=== PATIENT | female | born 1980 ===

== ENCOUNTER 2024-11-19 09:03 | Inpatient (IN) | payer MEDICARE, SELFPAY ==
[2024-11-19] VITALS (32 sets, daily range): BP systolic 84–146; BP diastolic 49–88; PULSE 60–100; RESP 10–17; TEMP 36.3–38.1; O2SAT 92–100; BMI 26.0
--- NOTE | ~2024-11-19 | CT_ITS ---
CLINICAL HISTORY: AMS CT chest with contrast Comparison: None Findings: No cardiomegaly or pericardial effusion. No mediastinal adenopathy. No discrete thyroid lesion. Lungs demonstrate mild dependent changes. No effusion or pneumothorax. No suspicious lung lesion. No rib fracture identified. Reformatted imaging of the thoracic spine demonstrates no acute process. The sternum is intact. Mild hepatosplenomegaly noted. Impression: No acute process in the chest. This document has been electronically signed by: Jean-Paul Osuna MD on 11/19/2024 16:12:31
--- NOTE | ~2024-11-19 | XR_ITS ---
CLINICAL HISTORY: cellulitis, ? osteo 2 view left tibia-fibula Comparison: None Findings Normal alignment without acute fracture. Deformity of the distal tibia and fibula sequela of old injury/surgery. Round 16 mm lucency in the distal tibial diaphysis likely postsurgical in nature, versus much less likely due to a benign lucent bone lesion or intraosseous abscess. No periostitis or erosion. Anterior and medial distal leg soft tissue swelling. Pretibial soft tissue swelling also noted in the superior aspect of the leg. Postsurgical changes in the dorsal medial soft tissues of the distal leg. Medially projecting 8 mm spur arising from the distal malleolus with pseudoarthrosis with the opposing aspect of the talus. Small heterotopic ossification/spurring dorsal to the talar head and neck sequela of remote injury. Small posterior calcaneal spur. IMPRESSION: Deformity of the distal tibia and fibula sequela of old injury/surgery. Round 16 mm lucency in the distal tibial diaphysis likely postsurgical in nature, versus much less likely due to a benign lucent bone lesion or intraosseous abscess. No periostitis or erosion. Other findings as above. This document has been electronically signed by: Randa Stuart MD on 11/19/2024 11:37:13
--- NOTE | ~2024-11-19 | CT_ITS ---
CLINICAL HISTORY: cellulitis, AMS, c f osteo nec fasc Contrast-enhanced CT of the left knee through ankle Indication: Cellulitis. Necrotizing fasciitis. Osteonecrosis. Comparison: None Findings: There is skin thickening and subcutaneous edema along the lower leg, ankle and hindfoot. No abscess or soft tissue gas. Bony fusion of the distal tibia and fibula. Prior hardware defect within the anteromedial distal tibia. No surrounding bone destruction to suggest active osteonecrosis. Degenerative changes seen of the knee and ankle. Impression: There is no evidence of necrotizing fasciitis, soft tissue gas or drainable abscess. There is skin thickening and subcutaneous edema noted as detailed. This document has been electronically signed by: Jean-Paul Osuna MD on 11/19/2024 16:21:01
--- NOTE | ~2024-11-19 | CT_ITS ---
CLINICAL HISTORY: lethargic CT head without contrast Comparison: None Findings: No intra-axial mass, midline shift, hydrocephalus, or acute hemorrhage. No significant atrophy-like change or white matter disease. Probable small calcified meningioma along the high right frontal falx, coronal 81. The visualized paranasal sinuses and mastoid air cells are normal. The orbits are within normal limits. There is no acute fracture. IMPRESSION: 1. No acute intracranial findings. This document has been electronically signed by: Jean-Paul Osuna MD on 11/19/2024 16:02:07
--- NOTE | ~2024-11-19 | CT_ITS ---
CLINICAL HISTORY: AMS CT abdomen and pelvis with contrast Comparison: None Findings: The lung bases exhibit mild dependent changes. The common bile duct is dilated to 10 mm. No filling defect identified. Mild intrahepatic biliary ductal prominence. The gallbladder is mildly distended. No suspicious liver lesion. The spleen is mildly enlarged measuring up to 12.75 cm. Kidneys, ureters and bladder are normal. Adrenal glands and pancreas are within normal limits. No bowel obstruction or free air. Normal appendix. Fecal retention within the colon. Uterus and adnexa demonstrate no acute process. Abnormal hypoenhancement of the cervix, sagittal image 66, nonspecific but may be seen with edema. No acute osseous finding. Impression: There is biliary ductal prominence without radiopaque filling defect, nonspecific. No pancreatic mass lesion identified by CT. Mild splenomegaly. Fecal retention within the colon. Questionable abnormal enhancement involving the cervix. Correlation for cervical edema/pelvic discomfort. This document has been electronically signed by: Jean-Paul Osuna MD on 11/19/2024 16:09:07
--- NOTE | 2024-11-19 09:38 | ED.GENADULT ---
HPI - General Adult General Chief complaint: Extremity Injury, Lower Stated complaint: LLE PULIDO/SWELLING X2D FROM [facility] PER EMS Time Seen by Provider: 11/19/24 09:37 Source: EMS, RN notes reviewed and old records reviewed Mode of arrival: EMS Limitations: altered mental status History of Present Illness ED Provider: Yoni HPI narrative: Patient is a 44-year-old female with history of asthma, seizures, fibromyalgia, GERD, Bipolar II disorder, PTSD, OUD on methadone, multiple psychiatric hospitalizations presenting to the ED from [facility] for evaluation of infection to left lower leg. History of prior skin graft/surgery to affected leg. Lethargic upon arrival limiting reported history from patient. MD complaint: left lower leg infection Related Data Home Medications ?Medication ?Instructions ?Recorded ?Confirmed acetaminophen 325 mg tablet 650 mg PO Q4H PRN Pain 11/19/24 11/19/24 (Tylenol) aluminum-mag hydroxide-simethicone 30 ml PO QID PRN gi upset 11/19/24 11/19/24 200 mg-200 mg-20 mg/5 mL oral susp baclofen 10 mg tablet 10 mg PO TID 11/19/24 11/19/24 benzocaine 6 mg-menthol 10 mg 1 tenzin mucous membrane Q2H PRN Sore 11/19/24 11/19/24 lozenges Throat benztropine 1 mg tablet 1 mg PO BID 11/19/24 11/19/24 bupropion HCl 150 mg tablet,12 hr 150 mg PO DAILY 11/19/24 11/19/24 sustained-release calcium carbonate 500 mg PO Q4H PRN Heartburn 11/19/24 11/19/24 clonidine HCl 0.1 mg tablet 0.1 mg PO DAILY PRN Anxiety - 3rd 11/19/24 11/19/24 line diazepam 2 mg tablet 2 mg PO TID PRN Anxiety - 2nd linw 11/19/24 11/19/24 docusate sodium 100 mg capsule 100 mg PO BID PRN Constipation- 11/19/24 11/19/24 1st line guaifenesin 600 mg tablet, 1,200 mg PO Q12H PRN Cough 11/19/24 11/19/24 extended release 12 hr haloperidol 10 mg tablet 10 mg PO BID 11/19/24 11/19/24 hydroxyzine pamoate 50 mg capsule 50 mg PO Q4H PRN moderate to 11/19/24 11/19/24 severe anxiety ibuprofen 400 mg tablet 400 mg PO Q8H PRN Pain 11/19/24 11/19/24 loperamide 2 mg tablet 2 mg PO Q4H PRN Diarrhea 11/19/24 11/19/24 magnesium hydroxide 400 mg/5 mL 30 ml PO DAILY PRN Constipation- 11/19/24 11/19/24 oral suspension 3rd line melatonin 3 mg tablet 3 mg PO BEDTIME PRN Insomnia 11/19/24 11/19/24 methadone 10 mg/mL oral 125 mg PO DAILY 11/19/24 11/19/24 concentrate (Methadone Intensol) mirtazapine 15 mg tablet 15 mg PO BEDTIME 11/19/24 11/19/24 nicotine (polacrilex) 2 mg gum 2 mg buccal Q2H PRN Nicotine 11/19/24 11/19/24 Cravings nicotine 21 mg/24 hr daily 1 patch transdermal DAILY Nicotine 11/19/24 11/19/24 transdermal patch Cravings ondansetron 4 mg disintegrating 4 mg PO Q6H PRN Nausea And Vomiting 11/19/24 11/19/24 tablet pregabalin 150 mg capsule 150 mg PO BID 11/19/24 11/19/24 quetiapine 300 mg tablet 300 mg PO BEDTIME 11/19/24 11/19/24 quetiapine 50 mg tablet 50 mg PO Q6H PRN Agitation 11/19/24 11/19/24 sennosides 8.6 mg tablet (senna) 17.2 mg PO DAILY PRN Constipation- 11/19/24 11/19/24 2nd line topiramate 50 mg tablet 50 mg PO BID 11/19/24 11/19/24 Allergies Allergy/AdvReac Type Severity Reaction Status Date / Time lamotrigine [From Lamictal] Allergy Unknown Verified 11/19/24 09:25 Review of Systems Review of Systems: As per HPI Yes all other systems are reviewed and are negative Constitutional: Constitutional: Reports as per HPI PMFSH Social History Social History Household Members: None Housing: Homeless Do you presently have visiting nurse or other home services: No Unable to assess alcohol history related to: Unable to respond 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 If so, by whom?: No Do you feel safe in your current relationship?: Yes Is there a partner from a previous relationship who is making you feel unsafe now?: No Are you made to feel afraid or neglected: No [employer] Healthcare Practices: [employer] Advance Directives: No Advance Directives Information Provided: No Do you have a plan to hurt others: No Plan Recently lost weight without trying: Unsure Eating poorly because of decreased appetite: No Nutrition Risks: On aspiration precautions Patient : No : No Poor oral hygiene: No Physical Exam ED Vital Signs: Vital Signs - 24 hr 11/19/24 11:15 11/19/24 12:05 11/19/24 12:46 Temperature 100.5 F H 100.6 F H Pulse Rate 75 73 Respiratory Rate 13 13 Blood Pressure 101/57 L 100/64 88/55 L Pulse Oximetry 96 98 Oxygen Delivery Method Room Air Room Air 11/19/24 13:40 11/19/24 13:45 11/19/24 13:50 Temperature Pulse Rate 69 70 68 Respiratory Rate Blood Pressure 84/49 L 89/53 L 124/79 Pulse Oximetry Oxygen Delivery Method 11/19/24 13:55 11/19/24 14:00 11/19/24 14:25 Temperature Pulse Rate 75 64 76 Respiratory Rate Blood Pressure 135/82 127/77 132/81 Pulse Oximetry Oxygen Delivery Method 11/19/24 14:55 11/19/24 15:00 11/19/24 15:10 Temperature Pulse Rate 76 75 80 Respiratory Rate 12 Blood Pressure 88/53 L 104/59 L 146/73 H Pulse Oximetry 98 Oxygen Delivery Method Room Air 11/19/24 15:20 11/19/24 15:25 11/19/24 15:46 Temperature 98.7 F Pulse Rate 71 68 67 Respiratory Rate 11 L 10 L Blood Pressure 93/52 L 98/57 L 101/69 Pulse Oximetry 98 99 Oxygen Delivery Method Room Air Room Air 11/19/24 16:16 11/19/24 16:31 11/19/24 16:52 Temperature Pulse Rate 66 65 64 Respiratory Rate 14 12 12 Blood Pressure 103/57 L 117/72 108/70 Pulse Oximetry 98 97 98 Oxygen Delivery Method Room Air Room Air Room Air 11/19/24 17:00 11/19/24 17:16 Temperature 98.9 F Pulse Rate 65 60 Respiratory Rate 12 13 Blood Pressure 100/62 112/73 Pulse Oximetry 97 99 Oxygen Delivery Method Room Air Room Air BMI result Body Mass Index 26.0 Vital signs have been reviewed and appear to be correct. Blood pressure normal. Heart rate normal. Respiratory rate normal. Temperature febrile on rectal temp. Oxygen saturation normal. Const General: intoxicated appearing, lethargic and patient obtunded Nutritional Appearance: average body habitus Orientation/consciousness: patient obtunded and lethargic Limitations: altered mental status HENNC Head: Yes normocephalic and Yes atraumatic Ears: external ears normal General nose exam: Normal external nose present and Normal nasal mucous membranes and turbinates present Face and sinus: Yes face symmetric Mouth: oropharynx normal and moist mucous membranes Throat: Yes uvula midline Eyes Pupils: Equal, round and reactive pupils present (3mm bilat) EOM: No Nystagmus present Neck Neck: Yes normal visual inspection, Yes trachea midline and Yes supple Resp Effort & Inspection: able to speak in complete sentences, decreased respiratory effort and other (bradypnea, RR 8) Auscultation: clear to auscultation bilaterally Cardio Rate: regular rate Rhythm: regular rhythm Heart sounds: S1 normal heart sound present and S2 normal heart sound present Peripheral pulses: Peripheral pulses 2+ throughout GI Palpation (GI): Soft to palpation and nontender Auscultation: normoactive bowel sounds General: Yes no CVA tenderness Back/Spine/Pelvis Back: no CVA tenderness Skin General skin exam: elasticity normal and turgor normal Neuro Other: minimal response to painful stimuli, brief grimacing and withdrawl of extremities General: moves all extremities, No CN's II-XI intact bilaterally (unable to fully assess due to AMS/lethargy), patient obtunded and Unable to assess gait Cranial nerves: Yes Equal, round and reactive pupils present (3mm bilat) and No Nystagmus present Gait exam (Neuro): Unable to assess gait Pupils: Normal pupillary reactivity/response: bilateral Extrem Other: General: Yes full ROM, Yes no pedal edema and Yes no calf tenderness Left lower extremity: lower leg (see photo) Details: erythema Location: of the mid lower leg Location: anteriorly and of the distal lower leg Location: anteriorly, localized swelling Location: of the distal lower leg, no edema and warmth Location: of the mid lower leg and foot Details: vascular exam Details: dorsalis pedis pulse present, posterior tibial pulse present and normal capillary refill Course Course Course Narrative: 11:15 Patient meeting sepsis criteria, IV Vanco ordered. Patient remains lethargic but maintaining airway/respirations. Normal lactic, BP WNL, will hold off on 30mL/kg bolus at this time. 12:[address] Mabry who recommends starting fluid bolus, adding clindamycin and zosyn to cover nec fasc. Obtaining CT head, chest, A/P and LLE. 13:00 Patient now hypotensive, norepi ordered. I, Dr. Mainor Matos, was available for consultation while the patient was in the emergency department and I did discuss this patient's care with the nurse practitioner, Blaire Meredith. I reviewed the PARACHUTE RIGGER?s documentation and I agree with the treatment and plan. Medications Administered Generic Name Dose Route Start Last Admin Trade Name Freq PRN Reason Stop Dose Admin Baclofen 10 mg 11/20/24 09:00 11/20/24 09:57 Baclofen 10 Mg Tablet PO 10 mg TID ROMERO Administration Benztropine Mesylate 1 mg 11/20/24 09:00 11/20/24 09:57 Benztropine Mesylate 1 Mg Tablet PO 1 mg BID ROMERO Administration Bupropion HCl 150 mg 11/20/24 09:00 11/20/24 09:54 Bupropion Hcl Xl 150 Mg Tab.Er.24h PO 150 mg DAILY ROMERO Administration Diazepam 2 mg 11/20/24 07:58 11/20/24 10:03 Diazepam 2 Mg Tablet PO 2 mg TID PRN Administration Anxiety - 2nd line Haloperidol 10 mg 11/20/24 09:00 11/20/24 09:57 Haloperidol 5 Mg Tablet PO 10 mg BID ROMERO Administration Heparin Sodium (Porcine) 5,000 unit 11/19/24 17:45 11/20/24 09:54 Heparin Sodium,Porcine 5,000 Unit/Ml Vial SUBCUT 5,000 unit Q8H ROMERO Administration Piperacillin Sod/Tazobactam 50 mls @ 100 mls/hr 11/19/24 21:00 11/20/24 10:34 Sod 3.375 gm/ Sodium Chloride IV Infused Q6H ROMERO Infusion Vancomycin HCl 750 mg/ Sodium 265 mls @ 265 mls/hr 11/20/24 00:00 11/20/24 00:19 Chloride IV Infused Q12H ROMERO Infusion Methadone HCl 125 mg 11/20/24 09:00 11/20/24 09:57 Methadone Hcl 20 Mg/2 Ml Oral.Conc PO 125 mg DAILY ROMERO Administration Nicotine 21 mg 11/19/24 20:15 11/20/24 09:54 Nicotine 21 Mg Patch.Td24 TRANSDERMA 21 mg DAILY ROMERO Administration Pregabalin 150 mg 11/20/24 09:00 11/20/24 09:57 Pregabalin 150 Mg Capsule PO 150 mg BID ROMERO Administration Topiramate 50 mg 11/20/24 09:00 11/20/24 09:54 Topiramate 25 Mg Tablet PO 50 mg BID ROMERO Administration Valacyclovir HCl 1,000 mg 11/19/24 21:00 11/20/24 09:57 Valacyclovir Hcl 1,000 Mg Tablet PO 1,000 mg Q12H ROMERO Administration Discontinued Medications Generic Name Dose Route Start Last Admin Trade Name Freq PRN Reason Stop Dose Admin Acetaminophen 650 mg 11/19/24 11:42 11/19/24 11:58 Acetaminophen Supp 650 Mg Supp.Rect DE 11/19/24 11:43 650 mg ONCE ONE Administration Vancomycin HCl 1,500 mg/ 500 mls @ 333.333 mls/hr 11/19/24 11:17 11/19/24 13:38 Sodium Chloride IV 11/19/24 12:46 Infused ONCE ONE Infusion Clindamycin Phosphate 300 mg in 50 mls @ 100 mls/hr 11/19/24 12:16 11/19/24 14:02 Cleocin IV 11/19/24 12:45 Not Given ONCE ONE Piperacillin Sod/Tazobactam 50 mls @ 100 mls/hr 11/19/24 12:16 11/19/24 13:47 Sod 3.375 gm/ Sodium Chloride IV 11/19/24 12:45 Infused ONCE ONE Infusion Lactated Ringer's 1,932 mls @ 1,932 mls/hr 11/19/24 12:22 11/19/24 16:16 Lr 30 ml/kg infuse over 1 hr (1932 ml) 11/19/24 13:21 Infused IV Infusion .Q1H ONE Clindamycin Phosphate 900 mg in 50 mls @ 50 mls/hr 11/19/24 13:03 11/19/24 14:59 Cleocin IV 11/19/24 14:02 Infused ONCE ONE Infusion Norepinephrine Bitartrate 8 mg in 250 mls @ 0 mls/hr 11/19/24 13:15 11/20/24 06:21 Levophed IVCONT Infused .Q0M ROMERO Titration Protocol Per Protocol Levetiracetam 1,500 mg in 100 mls @ 400 mls/hr 11/19/24 13:05 11/19/24 14:03 Keppra IV 11/19/24 13:19 Infused ONCE ONE Infusion Acetaminophen 1,000 mg in 100 mls @ 400 mls/hr 11/19/24 20:12 11/19/24 20:48 Ofirmev IV 11/19/24 20:26 Infused ONCE ONE Infusion Ibuprofen 600 mg 11/19/24 23:06 11/19/24 23:19 Ibuprofen 600 Mg Tablet PO 11/19/24 23:07 600 mg ONCE ONE Administration Iohexol 100 ml 11/19/24 15:37 11/19/24 15:37 Iohexol 350 Mg/Ml 100 Ml Infus..Btl IV 11/19/24 15:38 100 ml ONCE ONE Administration Mirtazapine 15 mg 11/20/24 00:26 11/20/24 01:51 Mirtazapine 15 Mg Tablet PO 11/20/24 00:27 15 mg ONCE ONE Administration Pregabalin 150 mg 11/20/24 00:26 11/20/24 01:51 Pregabalin 150 Mg Capsule PO 11/20/24 00:27 150 mg ONCE ONE Administration Quetiapine Fumarate 50 mg 11/20/24 00:26 11/20/24 01:51 Quetiapine Fumarate 50 Mg Tablet PO 11/20/24 00:27 50 mg ONCE ONE Administration Topiramate 50 mg 11/20/24 00:26 11/20/24 01:51 Topiramate 25 Mg Tablet PO 11/20/24 00:27 50 mg ONCE ONE Administration Tramadol HCl 50 mg 11/20/24 04:14 11/20/24 04:32 Tramadol Hcl 50 Mg Tablet PO 11/20/24 04:15 50 mg ONCE ONE Administration Medical Decision Making Medical Decision Making [facility] Narrative: Patient is a 44-year-old female with history of asthma, seizures, fibromyalgia, GERD, Bipolar II disorder, PTSD, OUD on methadone, multiple psychiatric hospitalizations presenting to the ED from [facility] for evaluation of infection to left lower leg. On exam patient is lethargic, VS WNL, afebrile, normal neurological exam without focal deficits, physical exam findings as above. Given reported symptoms and physical exam findings, initial differential includes but is not limited to cellulitis, osteomyelitis, necrotizing fasciitis, drug or alcohol intoxication or withdrawal, electrolyte abnormality, encephalopathy, uremia, polypharmacy, seizure. Labs notable for leukocytosis with shift, elevated ESR/CRP, normal lactic. UA notable for 1+ leukocytes, 1+ blood, 6-10 WBCs. X-ray tib/fib notable for deformity of distal tibia and fibula due to old injury/surgery, no evidence of osteomyelitis. My interpretation is in agreement with the radiologist's interpretation. Urine drug screen positive for methadone and benzodiazepines, both of which are prescribed to patient. EKG shows normal sinus rhythm. Case discussed with Dr. Camejo and he accepts admission to ICU. Differential Diagnosis Differential Diagnoses: The differential diagnosis associated with the presentation includes as per [facility] Admission/Observation Consideration of admission/observation: Escalation of care including admission/observation considered Consult Healthcare Provider Management of the patient was discussed with: Rfid Developer (Dr. Camejo) Lab Data [facility] Lab Attestation statement: I reviewed the patient's lab results. as per [facility] 11/20/24 06:49 11/20/24 06:49 Labs: Lab Results 11/19/24 11/19/24 11/19/24 Range/Units 10:31 12:20 12:36 WBC 12.6 H (4.8-10.8) X10*3/uL RBC 4.27 (4.20-5.50) X10*6/uL Hgb 11.9 L (12.0-16.0) g/dl Hct 35.9 L (37.0-47.0) % MCV 84.1 (80.0-98.0) fL MCH 27.9 (27.0-33.0) pg MCHC 33.1 (31.0-35.0) g/dl RDW 13.1 (11.0-16.0) % Plt Count 256 (160-400) X10*3/uL MPV 9.8 (9.4-12.3) fL Immature Gran % (Auto) 0.3 (0.0-0.4) % Neut % (Auto) 88.3 H (45-73) % Lymph % (Auto) 4.7 L (20-40) % [place] % (Auto) 5.2 (2-11) % Eos % (Auto) 1.2 (0-4) % Baso % (Auto) 0.3 (0-2) % Lymph # (Auto) 0.6 L (1.2-4.9) X10*3/uL [place] # (Auto) 0.7 (0.1-1.2) X10*3/uL Eos # (Auto) 0.2 (0.0-0.4) X10*3/uL Baso # (Auto) 0.0 (0.0-0.2) X10*3/uL Abs Immat Gran (auto) 0.04 H (0.00-0.03) X10*3/uL Absolute Neuts (auto) 11.2 H (2.0-8.3) x10*3/uL Absolute Nucleated RBC 0.000 (0.0-0.012) X10*3/uL Nucleated RBC % (auto) 0.0 (0.0-0.2) /100WBC ESR 56 H (0-20) MM/HR VBG pH (7.32-7.43) VBG pCO2 mmHg VBG pO2 mmHg VBG HCO3 (22-26) mmol/L VBG O2 Saturation % VBG Base Excess mmol/L Sodium 137 (135-145) mmol/L Potassium 4.2 (3.3-5.1) mmol/L Chloride 107 (96-108) mmol/L Carbon Dioxide 24 (22-29) mmol/L Anion Gap 10 L (12-20) BUN 14 (9-16) mg/dL Creatinine 0.81 (0.5-1.4) mg/dL Estim Creat Clear Calc 78.0 Estimated GFR > 60 Random Glucose 107 (60-115) mg/dL Lactic Acid 1.0 (0.5-2.0) mmol/L Calcium 9.1 (8.4-10.2) mg/dL Magnesium 2.2 (1.6-2.6) mg/dL Total Bilirubin 0.3 (0.0-1.0) mg/dL AST 17 (5-31) U/L ALT 11 (0-31) U/L Alkaline Phosphatase 84 (39-117) U/L Ammonia 55 (13-55) umol/L Troponin I High Sens (<3.5-17.0) ng/L C-Reactive Protein 12.69 H (< or = 0.50) mg/dL Total Protein 7.5 (6.5-8.0) g/dL Albumin 3.4 L (3.5-5.0) g/dL Beta HCG, Quant < 2 mIU/mL Urine Color Yellow Urine Appearance Clear Urine pH 6.0 (5.0-9.0) Ur Specific [place] 1.015 (1.005-1.025) Urine Protein Negative (Neg-Trace) mg/dL Urine Glucose (UA) Negative (Negative) mg/dL Urine Ketones Negative (Negative) mg/dL Urine Blood Small (1+) H (Negative) Urine Nitrite Negative (Negative) Ur Leukocyte Esterase Small (1+) H (Negative) Urine RBC 3-5 H (0-2) /HPF Urine WBC 6-10 H (0-5) /HPF Ur Squamous Epith Cells 0-2 (0-2) /HPF Urine Bacteria Trace (None Seen) Hyaline Casts 0-2 (0-2) /LPF Urine Opiates Screen Not Detected (Not Detect) Ur Buprenorphine Scrn Not Detected (Not Detect) ng/mL Ur Oxycodone Screen Not Detected (Not Detect) ng/mL Urine Methadone Screen Positive H (Not Detect) ng/mL Urine Fentanyl Screen Not Detected (Not Detect) Ur Barbiturates Screen Not Detected (Not Detect) Ur Phencyclidine Scrn Not Detected (Not Detect) Ur Amphetamines Screen Not Detected (Not Detect) U Benzodiazepines Scrn POSITIVE H (Not Detect) Urine Cocaine Screen Not Detected (Not Detect) U Marijuana (THC) Screen Not Detected (Not Detect) 11/19/24 11/19/24 Range/Units 15:24 17:12 WBC (4.8-10.8) X10*3/uL RBC (4.20-5.50) X10*6/uL Hgb (12.0-16.0) g/dl Hct (37.0-47.0) % MCV (80.0-98.0) fL MCH (27.0-33.0) pg MCHC (31.0-35.0) g/dl RDW (11.0-16.0) % Plt Count (160-400) X10*3/uL MPV (9.4-12.3) fL Immature Gran % (Auto) (0.0-0.4) % Neut % (Auto) (45-73) % Lymph % (Auto) (20-40) % [place] % (Auto) (2-11) % Eos % (Auto) (0-4) % Baso % (Auto) (0-2) % Lymph # (Auto) (1.2-4.9) X10*3/uL [place] # (Auto) (0.1-1.2) X10*3/uL Eos # (Auto) (0.0-0.4) X10*3/uL Baso # (Auto) (0.0-0.2) X10*3/uL Abs Immat Gran (auto) (0.00-0.03) X10*3/uL Absolute Neuts (auto) (2.0-8.3) x10*3/uL Absolute Nucleated RBC (0.0-0.012) X10*3/uL Nucleated RBC % (auto) (0.0-0.2) /100WBC ESR (0-20) MM/HR VBG pH 7.40 (7.32-7.43) VBG pCO2 37 mmHg VBG pO2 81 mmHg VBG HCO3 23 (22-26) mmol/L VBG O2 Saturation 96.0 % VBG Base Excess -1.0 mmol/L Sodium (135-145) mmol/L Potassium (3.3-5.1) mmol/L Chloride (96-108) mmol/L Carbon Dioxide (22-29) mmol/L Anion Gap (12-20) BUN (9-16) mg/dL Creatinine (0.5-1.4) mg/dL Estim Creat Clear Calc Estimated GFR Random Glucose (60-115) mg/dL Lactic Acid (0.5-2.0) mmol/L Calcium (8.4-10.2) mg/dL Magnesium (1.6-2.6) mg/dL Total Bilirubin (0.0-1.0) mg/dL AST (5-31) U/L ALT (0-31) U/L Alkaline Phosphatase (39-117) U/L Ammonia (13-55) umol/L Troponin I High Sens < 2.7 (<3.5-17.0) ng/L C-Reactive Protein (< or = 0.50) mg/dL Total Protein (6.5-8.0) g/dL Albumin (3.5-5.0) g/dL Beta HCG, Quant mIU/mL Urine Color Urine Appearance Urine pH (5.0-9.0) Ur Specific [place] (1.005-1.025) Urine Protein (Neg-Trace) mg/dL Urine Glucose (UA) (Negative) mg/dL Urine Ketones (Negative) mg/dL Urine Blood (Negative) Urine Nitrite (Negative) Ur Leukocyte Esterase (Negative) Urine RBC (0-2) /HPF Urine WBC (0-5) /HPF Ur Squamous Epith Cells (0-2) /HPF Urine Bacteria (None Seen) Hyaline Casts (0-2) /LPF Urine Opiates Screen (Not Detect) Ur Buprenorphine Scrn (Not Detect) ng/mL Ur Oxycodone Screen (Not Detect) ng/mL Urine Methadone Screen (Not Detect) ng/mL Urine Fentanyl Screen (Not Detect) Ur Barbiturates Screen (Not Detect) Ur Phencyclidine Scrn (Not Detect) Ur Amphetamines Screen (Not Detect) U Benzodiazepines Scrn (Not Detect) Urine Cocaine Screen (Not Detect) U Marijuana (THC) Screen (Not Detect) Independent Interpretation I performed an independent interpretation of an: EKG (Normal sinus rhythm, rate 71 beats per minute, normal DE interval, prolonged QTC) and Plain X-Ray Interpretation: X-ray tibia notable for deformity likely due to old injury and prior surgery, no osteomyelitis. Radiology Impression Discussion of test interpretation with radiology: I have reviewed the radiologist's reading. Radiologist Impression: IMPRESSION: Deformity of the distal tibia and fibula sequela of old injury/surgery. Round 16 mm lucency in the distal tibial diaphysis likely postsurgical in nature, versus much less likely due to a benign lucent bone lesion or intraosseous abscess. No periostitis or erosion. Other findings as above. External Record Review External record reviewed: Inpatient record, Office record and Outpatient record Critical Care Time Critical Care Time Critical Care Time: Yes Total Critical Care Time: 88 Attestation: I have personally provided critical care time exclusive of time spent on separately billable procedures. Time includes review of lab data, radiology results, discussion with consultants, and monitoring for potential decompensation. Intervention performed as documented. Discharge Plan Discharge Clinical Impression: Cellulitis, Altered mental status, Sepsis Patient Disposition: Admitted As Inpatient Discharge Date/Time: 11/19/24 19:12
--- OUTSIDE RECORDS SUMMARY | 2024-11-19 10:03 | XMS_ITS | Encounter Summary ---
Author Organization [facility]ance Address [address] [place] [address] Care Team Providers Care Manager Of Organizational Development Name Role Phone Greg Murdock MD Primary Care Provider [phone] Greg Murdock MD Unavailable [phone] Ramón Real SPECIAL POLICE Unavailable [phone] Tammy Soto BALL MILL OPERATOR Unavailable [phone] Linda Leblanc BALL MILL OPERATOR Unavailable [phone] Ginny Alberto BALL MILL OPERATOR Unavailable [phone] Belkis Londono (Inactive) RN Unavailable Ginny Alberto BALL MILL OPERATOR Unavailable [phone] Ginny Alberto BALL MILL OPERATOR Unavailable [phone] Ginny Alberto BALL MILL OPERATOR Unavailable [phone] Ramón Real SPECIAL POLICE Unavailable [phone] Ashley Howard MD Primary Care Provider [phone] Vinny Parker PA-C Unavailable [phone] Ashley Howard MD Unavailable [phone] Reason for Visit * Reason Onset Date Comments Refill Request 06/06/2013 amphetamine-dext roamphetamine (ADDERALL, 20MG,) 20 MG tablet Encounter Details Date Type Department Care Team (Late st Contact Info) Description 06/06/2013 [facility] Primary Care - [facility] - Psychiatry [address] [place] [address] Keyon Roberts MD [address] [place] [address] Refill Request (amphetamine-dextroamp hetamine (ADDERALL, 20MG,) 20 MG tablet) Social History Tobacco Use Types Packs/Day Years Used Date Smoking Tobacco: Every Day Cigarettes Smokeless Tobacco: Current Alcohol Use Standard Drinks/Week Comments No 0 (1 standard drink = 0.6 oz pur e alcohol) Comments No Sex and Gender Information Value Date Recorded Sex Assigned at Not on file Legal Sex Female 11:33 PM EDT Gender Identity Female 08/01/2023 7:58 AM EST Sexual Orientation Straight 08/01/2023 7: 58 AM EST documented as of this encounter Plan of Treatment Not on file documented as of this encounter Visit Diagnoses Not on filedocumented in this encounter Additional Health Concerns Infection Onset Date Last Indicated Resolved Time Rule out COVID-19 04/03/2020 04/04/2020 04/04/2020 3:22 AM EDT Rule out COVID-19 04/09/2023 04/09/2023 04/09/2023 4:00 PM EDT Rule out RSV 04/09/2023 04/09/2023 04/10/2023 6:21 AM EDT Rule out Influenzae 04/09/2023 04/09/2023 04/10/20 6:21 AM EDT Rule out COVID-19 04/09/2023 04/09/2023 04/10/2023 6:22 AM EDT Human Rhinovirus Enterovirus Comment:Pt chart reviewed; spoke to provider, no S/S at this time; afebrile. Precautions can be discontinued. 04/09/2023 04/09/2023 04/16/2023 10:26 AM EDT Rule out COVID-19 05/14/2023 05/14/2023 05/14/2023 2:17 PM EST COVID-19 Comment:According the patient history, current condition and the algorithm this patient is not considered infectious at this time. 05/14/2023 05/14/202305/06 10:10 AM EST Rule out COVID-19 05/14/2023 05/14/2023 05/14/2023 3:40 PM EST Rule out COVID-19 06/13/2023 06/13/2023 06/13/2023 8:59 PM EST documented as of this encounter Care Teams Manager Of Organizational Development Relationship Specialty Start Date End Date Greg Murdock MD [address] [place] [id number] PCP - General 01/19/14 04/14/23 Greg Murdock MD [address] [place] [id number] PCP - Insurance PCP 02/02/15 05/04/23 Ashley Howard MD [address] [address] PCP - General Internal Medicine 04/15/23 Vinny Parker PA-C [address] [place] [id number] PCP - Attributed PCP - PCF [facility] 10/08/21 06/04/23 Ashley Howard MD [address] [address] PCP - Insurance PCP 09/03/24 Ramón Real SPECIAL POLICE [address] [place] [id number] Community Health Worker Case Management 03/28/[address] [facility] [address] [place] [address] Complex Care Management Primary Care Based - BALL MILL OPERATOR/COMPUTER AIDED DESIGN OPERATOR Care Management 03/29/19 10/31/19 Linda Leblanc, [facility] [address] [facility] [place] [address] Intensive Clinical Advisor Behavioral Health 08/05/19 11/10/19 Ginny Alberto, [facility] [address] [facility] [place] [address] Complex Care Management Primary Care Based - [facility] Family Medicine 11/01/19 01/25/20 Belkis Londono (Inactive), RN [address] [place] [address] Complex Care Management Primary Care Based-RN 01/26/20 01/31/20 Ginny Alberto, [address] [address] Complex Care Management Primary Care Based - [facility] Family Medicine 02/01/20 02/26/20 [address] [address] Complex Care Management Primary Care Based - [facility] Family Medicine 12/16/22 01/06/[address] [address] Complex Care Management Primary Care Based - [facility] Family Medicine 02/18/23 03/05/23 Ramón Real, SPECIAL POLICE [address] [facility] [place] [address] Community Health Worker Case Management 04/13/23 documented as of this encounter
--- OUTSIDE RECORDS SUMMARY | 2024-11-19 10:03 | XMS_ITS | Encounter Summary ---
Author Organization [employer] [facility] Address [address] [place] [address] Care Team Providers Care Manufacturing Automation Engineer Name Role Phone Ashley Howard MD Primary Care Provider [phone] Ashley Howard MD Unavailable [phone] Reason for Visit * Reason Onset Date Comments Schedule An Appointment 11/03/2024 Encounter Details Date Type Department Care Team (Late st Contact Info) Description 11/03/2024 Telephone [facility] [address] [place] [address] Ashley Howard MD [facility] [address] [place] [address] Schedule An Appointment Social History Tobacco Use Types Packs/Day Years Used Date Smoking Tobacco: Every Day Cigarettes 1 25 Passive Smoke Exposure: Current Comments:smoking 2 pks a day because holidays 06/22/13 Alcohol Use Standard Drinks/Week Comments No 0 (1 standard drink = 0.6 oz pur e alcohol) Comments No Sex and Gender Information Value Date Recorded Sex Assigned at Not on file Legal Sex Female 11:33 PM EDT Gender Identity Female 08/01/2023 7:58 AM EST Sexual Orientation Straight 08/01/2023 7: 58 AM EST documented as of this encounter Functional Status * (RETIRED) Are you deaf or do you have difficulty hearing? Answer Date of Assessment Author No 05/15/2023 5:00 PM Ernestine Stone RN * (RETIRED) Are you blind or do you have difficulty seeing? Answer Date of Assessment Author No 05/15/2023 5:00 PM Ernestine Stone RN * (RETIRED) Do you have difficulty walking or climbing stairs? Answer Date of Assessment Author No 05/15/2023 5:00 PM Ernestine Stone RN * (RETIRED) Do you have difficulty dressing or bathing? Answer Date of Assessment Author No 05/15/2023 5:00 PM Ernestine Stone RN * (RETIRED) Because of a physical, mental, or emotional condition, do you have difficulty doing errands such as visiting a doctor's office or shopping? Answer Date of Assessment Author No 05/15/2023 5:00 PM Ernestine Stone RN documented as of this encounter Mental Status * (RETIRED) Because of a physical, mental, or emotional condition, do you have serious difficulty concentrating, remembering, or making decisions? Answer Entry Date Author No 05/15/2023 5:00 PM Ernestine Stone RN documented in this encounter Miscellaneous Notes * Telephone Encounter - Doreen Castaneda - 11/03/2024 12:19 PM EDT Edwina Caballero [id number], 44 year old, female Calls today: Clinical Questions (NON-SICK CLINICAL QUESTIONS ONLY) Name of person calling [place] perinatal social worker in [facility] Specific nature of request schedule hospital follow up Return phone number no return call needed Patient does not need an market developer. Patient's PCP: Ashley Howard MD Primary Long Term Site: [facility] In patient perinatal social worker from [facility] calling to scheduled hospital follow up for patient. documented in this encounter Plan of Treatment Not on file documented as of this encounter Goals Goal Patient Goal Type Associated Problems Recent Progress Patient-Stated? Author Transporta tion Care Plan [facility] PATIENT RESOURCE COORDINATION No Kirstie Leggett Inactive Transporta tion Care Plan [place] PATIENT RESOURCE COORDINATION No Kirstie Leggett Inactive Transporta tion Care Plan [place] PATIENT RESOURCE COORDINATION No Kirstie Leggett Inactive documented as of this encounter Visit Diagnoses Not on filedocumented in this encounter Additional Health Concerns Active Problems Noted Date Diagnosed Date [facility]ITA PATIENT RESOURCE COORDINATION 01/28/2021 CHIQUITA PATIENT RESOURCE COORDINATION 08/28/2021 [place] PATIENT RESOURCE COORDINATION 08/29/2021 [place]IQUITA PATIENT RESOURCE COORDINATION 08/29/2021 documented as of this encounter Care Teams Manufacturing Automation Engineer Relationship Specialty Start Date End Date Ashley Howard MD [address] [address] PCP - General Internal Medicine 04/15/23 Ashley Howard MD [address] [address] PCP - Insurance PCP 09/03/24 documented as of this encounter
--- OUTSIDE RECORDS SUMMARY | 2024-11-19 10:03 | XMS_ITS | Clinical Summary ---
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 Tubes/lines: Support wires overlie the chest and upper abdomen. Lungs: The lungs are clear. Pleura: There is no pleural effusion or pneumothorax. Heart: Borderline sized cardiac silhouette accentuated by portabletechnique. Mediastinum/papito: Unremarkable for portable technique. Bones and Soft Tissues: Unremarkable IMPRESSION: No acute cardiopulmonary findings on portable chest radiograph. Reviewed and Electronically Signed By: Keo Levy MD Signed Date and Time: 11/05/2024 3:03 PM Jaime Tao PA-C RAD XR ORDERABLES Final Re sult * CT Head WO Contrast (11/05/2024 2:01 PM EDT) Only the most recent of2 resultswithin the time period is included. Anatomical Region Laterality Modality Head and Neck Computed Tomogra phy 11/05/2024 2:03 PM EDT Impressions 11/05/2024 2:[address] evidence of acute intracranial abnormality. Reviewed and Electronically Signed By: Keo Levy MD Signed Date and Time: 11/05/2024 2:16 PM Narrative 11/05/2024 2:16 PM EDT CLINICAL INDICATION: Altered mental status COMPARISON: Head CT 09/26/2024 TECHNIQUE: Contiguous scans from skull base to vertex without contrast and reconstructions in coronal and sagittal planes. Radiation dose reduction techniques were employed. CTDIvol: 60.1 mGy. DLP: 1154 mGy-cm. FINDINGS: Brain: Villagomez-white differentiation is maintained. There is no hemorrhage or abnormal mass effect. Ventricles and CSF spaces: Normal in size and morphology. An unchanged 1.5 cm right parafalcine calcified nodule may represent an incidental dural calcification or a benign calcified meningioma. There is no mass effect. Sinuses: There is minimal paranasal sinus mucosal thickening but no visualized air-fluid level. Mastoid air cells: Clear. Orbits: Unremarkable. Bones: The calvarial vault and skull base are intact. Extracranial: Unremarkable Procedure Note Keo Levy MD - 11/05/2024 CLINICAL INDICATION: Altered mental status COMPARISON: Head CT 09/26/2024 TECHNIQUE: Contiguous scans from skull base to vertex without contrast andreconstructions in coronal and sagittal planes. Radiation dose reductiontechniques were employed. CTDIvol: 60.1 mGy. DLP: 1154 mGy-cm. FINDINGS: Brain: Villagomez-white differentiation is maintained. There is no hemorrhage orabnormal mass effect. Ventricles and CSF spaces: Normal in size and morphology. An unchanged 1.5 cm right parafalcine calcified nodule may represent anincidental dural calcification or a benign calcified meningioma. There isno mass effect. Sinuses: There is minimal paranasal sinus mucosal thickening but novisualized air-fluid level. Mastoid air cells: Clear. Orbits: Unremarkable. Bones: The calvarial vault and skull base are intact. Extracranial: Unremarkable IMPRESSION: No CT evidence of acute intracranial abnormality. Reviewed and Electronically Signed By: Keo Levy MD Signed Date and Time: 11/05/2024 2:16 PM Result [facility] Jaime Tao PA-C RAD CT ORDERABLES Final Re sult * EKG : Initial (11/05/2024 1:43 PM EDT) Only the most recent of2 resultswithin the time period is included. EKG REPORT Test Reason : ?? Vent. Rate : ??81 BPM ? Atrial Rate : ??81 BPM ? P-R Int : 150 ms ?QRS Dur : ??82 ms ?QT Int : 424 ms ? P-R-T Axes : ??31 ?? 4 ??22 degrees ?QTcB Int : 492 ms ? Normal sinus rhythm ?? Cannot rule out Anterior infarct , age undetermined ?? Abnormal ECG ?? When compared with ECG of 26-Sep-2024 13:34, ?? No significant change was found ? Referred By: JAIME TAO ?Confirmed By: FELI CRAWFORD [facility] RADIOLOG[facility] 11/05/2024 1:43 PM EDT 11/06/2024 10:16 PM EDT Result [facility] Jaime Tao PA-C RAD EKG OR DEVICE ORDERABL ES Final Result [facility] * Serum Drug Screen (11/05/2024 1:35 PM EDT) SALICYLATE < 0.5 3.0 - 20.0 mg/dL [facility] ACETAMINOPHEN < 5 10 - 30 ug/mL [facility] ETHANOL < 10 0 - 10 mg/dL [facility] 11/05/2024 1:35 PM EDT 11/05/2024 1:40 PM EDT Result [facility] Jaime Tao PA-C LABORATORY Final Resu lt [facility] [address] [place] [address], [place] * CBC, Platelet & Differential (11/05/2024 1:35 PM EDT) WHITE BLOOD CELL COUNT 6.7 4.0 - 11.0 TH/uL [facility] RED BLOOD CELL COUNT 4.47 3.90 - 5.20 M/uL [facility] HEMOGLOBIN 12.9 11.2 - 15.7 g/dL [facility] HEMATOCRIT 38.4 34.1 - 44.9 % [facility] MEAN CORPUSCULAR VOL 85.9 80.0 - 100.0 fl [facility] MEAN CORPUSCULAR HGB 28.9 26.0 - 34.0 pg [facility] MEAN BOSSMAN HGB CONC 33.6 31.0 - 37.0 g/dL [facility] RBC DISTRIBUTION WIDTH STD DEV 42.9 35.1 - 46.3 fL [facility] PLATELET COUNT 255 150 - 400 TH/uL [facility] MEAN PLATELET VOLUME 10.1 8.7 - 12.5 fL [facility] NEUTROPHIL % 61.3 40.0 - 75.0 % [facility] IMMATURE GRANULOCYTE % 0.3 0.0 - 1.0 % [facility] Comment: The immature granulocyte fraction includes metamyelocytes, myelocytes and promyelocytes. ??No blasts are included in the immature granulocyte fraction. An immature granulocyte fraction over 5% will result in additional laboratory review. A mild increase in immature granulocytes (up to 1%) in the peripheral blood may indicate an early-stage response to infection, inflammation, or other stimuli of the bone marrow. ??In addition, immature granulocytes can be seen in association with trauma, certain medications (including steroids and G-CSF), and may also be elevated in patients (mainly 3rd trimester) or neonates. ??The immature granulocyte count may also indicate a myeloproliferative neoplasm, a myelodysplastic syndrome, or other neoplastic processes (such as a metastasis from an extramedullary malignancy). If there is a clinical concern for a hematopoietic neoplastic process, additional laboratory investigation can be requested including a manual white blood count differential and/or a pathologist peripheral smear review. LYMPHOCYTE % 26.3 15.0 - 54.0 % [facility] MONOCYTE % 10.5 4.0 - 13.0 % [facility] EOSINOPHIL % 0.7 0.0 - 7.0 % [facility] BASOPHIL % 0.9 0.0 - 1.2 % [facility] NRBC % 0.0 0.0 - 0.0 % [facility] ABSOLUTE NEUTROPHIL COUNT 4.1 1.6 - 8.3 TH/uL [facility] ABSOLUTE IMM GRAN COUNT 0.02 0.00 - 0.10 TH/uL [facility] ABSOLUTE LYMPH COUNT 1.8 0.6 - 5.9 TH/uL [facility] ABSOLUTE MONO COUNT 0.7 0.2 - 1.4 TH/uL [facility] ABSOLUTE EOSINOPHIL COUNT 0.1 0.0 - 0.8 TH/uL [facility] ABSOLUTE BASO COUNT 0.1 0.0 - 0.1 TH/uL [facility] ABSOLUTE NRBC COUNT 0.0 0.0 - 0.0 TH/uL [facility] 11/05/2024 1:35 PM EDT 11/05/2024 1:40 PM EDT Jaime Tao PA-C LABORATORY Final Resu lt [facility] [address] [place] [address], [place] * Hold Blue Top Tube (11/05/2024 1:35 PM EDT) HOLD BLUE TOP TUBE RECEIVED IN HEMATOL [facility] 11/05/2024 1:35 PM EDT 11/05/2024 1:40 PM EDT Jaime Tao PA-C LABORATORY Final Resu lt [facility] [address] [place] [address], * Hold Green Top Tube (11/05/2024 1:35 PM EDT) HOLD GREEN TOP TUBE RECEIVED IN CHEM [facility] 11/05/2024 1:35 PM EDT 11/05/2024 1:40 PM EDT Jaime PALACIOS-Nanci LABORATORY Final Resu lt Performing Organization Address City/[facility]/ZIP Co de Phone Number [facility] [address] [place] [address], [place] * HCG Qualitative Serum (11/05/2024 1:35 PM EDT) HCG QUALITATIVE SERUM NEGATIVE NEGATIVE [facility] 11/05/2024 1:35 PM EDT 11/05/2024 1:40 PM EDT Jaime PALACIOS-Nanci LABORATORY Final Resu lt Performing Organization Address City/[facility]/ZIP Co de Phone Number [facility] [address] [place] [address], [place] * Comprehensive Metabolic Panel (11/05/2024 1:35 PM EDT) SODIUM 138 136 - 145 mmol/L [facility] POTASSIUM 4.0 3.5 - 5.1 mmol/L [facility] CHLORIDE 103 98 - 107 mmol/L [facility] CARBON DIOXIDE 23 21 - 32 mmol/L [facility] ANION GAP 12 10 - 22 mmol/L [facility] CALCIUM 9.0 8.5 - 10.5 mg/dL [facility] Glucose Random 90 74 - 160 mg/dL [facility] BUN (UREA NITROGEN) 13 7 - 18 mg/dL [facility] TOTAL PROTEIN 6.8 6.4 - 8.2 g/dL [facility] ALBUMIN 3.9 3.4 - 5.2 g/dL [facility] BILIRUBIN TOTAL 0.6 0.2 - 1.0 mg/dL [facility] ALKALINE PHOSPHATASE 88 45 - 117 U/L [facility] ASPARTATE AMINOTRANSFERASE 16 8 - 34 U/L [facility] CREATININE 1.0 0.4 - 1.2 mg/dL [facility] ESTIMATED GLOMERULAR FILT RATE > 60 >60 ML/MIN [facility] Comment: On March 28, 2021 the NKF-ASN Task Force recommended the adoption of the new eGFR 2020 CKD EPI creatinine equation that estimates kidney function without a race variable. NKF and ASN recommend diagnosing kidney disease using a blood test for creatinine to estimate GFR and a urine test for albumin to calculate albumin to creatinine ratio (uACR). For more information please see https://www.kidney.org/news/ayi-pdl-hje-kckqduw-zln-fws-to-d nxvojts-agpzej-utpqjdrc. ALANINE AMINOTRANSFERASE 13 12 - 45 U/L [facility] 11/05/2024 1:35 PM EDT 11/05/2024 1:40 PM EDT Jaime Tao PA-C LABORATORY Final Resu lt Performing Organization Address City/[facility]/ZIP Co de Phone Number [facility] [address] [place] [address], [place] * Fingerstick Blood Sugar (Point of Care) (11/05/2024 1:17 PM EDT) FINGERSTICK GLUCOSE 133 74 - 160 mg/dl [facility] Comment: If peripheral circulation is impaired, collection of capillary blood from the approved sample sites is not advised as the results might not be a true reflection of the physiological blood glucose level. This may apply in the following circumstances: severe dehydration as a result of diabetic ketoacidosis or due to hyperglycemic hyperosmolar non-ketotic syndrome, hypotension, shock, decompensated heart failure NYHA Class IV, or peripheral arterial occlusive disease. 11/05/2024 1:17 PM EDT 11/05/2024 1:22 PM EDT us Ed Physician LABORATORY Final Result Performing Organization Address City/[facility]/ZIP Co de Phone Number [facility] [address] [place] [address], [place] * XR Chest 2 views (09/26/2024 1:37 PM EDT) Anatomical Region Laterality Modality Chest Digital Radiogra phy 09/26/2024 1:42 PM EDT Impressions 09/26/2024 1:43 PM EDT New right pleural fluid. In the setting of trauma this could represent hemothorax Reviewed and Electronically Signed By: Michel Kunz MD Signed Date and Time: 09/26/2024 1:43 PM Narrative 09/26/2024 1:43 PM EDT Technique: Chest, 2 views INDICATION: trip and fall, chest pain COMPARISON: May 29, 2024 FINDINGS: Lungs: The lungs are clear. Pleura: New right pleural effusion Heart: The cardiac silhouette is unremarkable. Mediastinum/papito: Unremarkable Bones and Soft Tissues: Unremarkable Procedure Note Michel Kunz MD - 09/26/2024 Technique: Chest, 2 views INDICATION: trip and fall, chest pain COMPARISON: May 29, 2024 FINDINGS: Lungs: The lungs are clear. Pleura: New right pleural effusion Heart: The cardiac silhouette is unremarkable. Mediastinum/papito: Unremarkable Bones and Soft Tissues: Unremarkable IMPRESSION: New right pleural fluid. In the setting of trauma this couldrepresent hemothorax Reviewed and Electronically Signed By: Michel Kunz MD Signed Date and Time: 09/26/2024 1:43 PM us Terrence Parsons MD RAD XR ORDERABLES Final Resu lt * XR Foot Left minimum 3 views (09/26/2024 1:36 PM EDT) Anatomical Region Laterality Modality Lower Extremities Digital Radiog komal 09/26/2024 1:44 PM EDT Impressions 09/26/2024 1:45 PM EDT No acute traumatic finding Reviewed and Electronically Signed By: Michel Kunz MD Signed Date and Time: 09/26/2024 1:45 PM Narrative 09/26/2024 1:45 PM EDT Technique: Left foot, 3 views Indication: trip fall, pain at left foot near 5th metatarsal, ?fracture Comparison: Partial comparison with ankle radiographs of April 14, 2019 Findings: Bones and Joints: There is no fracture or suspicious bone lesion. There is no dislocation. The joint spaces are maintained. There is a plantar calcaneal spur. There has been interval removal of hardware from the distal tibia. Soft Tissues: Unremarkable. ?? Procedure Note Michel Kunz MD - 09/26/2024 Technique: Left foot, 3 views Indication: trip fall, pain at left foot near 5th metatarsal, ?fracture Comparison: Partial comparison with ankle radiographs of April Findings: Bones and Joints: There is no fracture or suspicious bone lesion. There isno dislocation. The joint spaces are maintained. There is a plantarcalcaneal spur. There has been interval removal of hardware from thedistal tibia. Soft Tissues: Unremarkable. IMPRESSION: No acute traumatic finding Reviewed and Electronically Signed By: Michel Kunz MD Signed Date and Time: 09/26/2024 1:45 PM us Terrence Parsons MD RAD XR ORDERABLES Final Resu lt * XR Knee Left 3 views (09/26/2024 1:36 PM EDT) Anatomical Region Laterality Modality Lower Extremities Digital Radiog komal 09/26/2024 1:41 PM EDT Impressions 09/26/2024 1:42 PM EDT No acute traumatic finding Reviewed and Electronically Signed By: Michel Kunz MD Signed Date and Time: 09/26/2024 1:42 PM Narrative 09/26/2024 1:42 PM EDT Exam: Left knee, 3 views Indication: trip and fall, bilateral knee pain after trauma. Comparison: November 01, 2013 Findings: Bones and Joints: There is no fracture or suspicious bone lesion. There is no dislocation. The joint spaces are maintained. No joint effusion is seen. Soft Tissues: Unremarkable. ?? Procedure Note Michel Kunz MD - 09/26/2024 Exam: Left knee, 3 views Indication: trip and fall, bilateral knee pain after trauma. Comparison: November 01, 2013 Findings: Bones and Joints: There is no fracture or suspicious bone lesion. There isno dislocation. The joint spaces are maintained. No joint effusion isseen. Soft Tissues: Unremarkable. IMPRESSION: No acute traumatic finding Reviewed and Electronically Signed By: Michel Kunz MD Signed Date and Time: 09/26/2024 1:42 PM us Terrence Parsons MD RAD XR ORDERABLES Final Resu lt * XR Knee Right 3 views (09/26/2024 1:35 PM EDT) Anatomical Region Laterality Modality Lower Extremities Digital Radiog komal 09/26/2024 1:50 PM EDT Impressions 09/26/2024 1:51 PM EDT No acute traumatic finding Reviewed and Electronically Signed By: Michel Kunz MD Signed Date and Time: 09/26/2024 1:51 PM Narrative 09/26/2024 1:51 PM EDT Exam: Right knee, 3 views Indication: trip and fall, bilateral knee pain after trauma. Comparison: None Findings: Bones and Joints: There is no fracture or suspicious bone lesion. There is no dislocation. The joint spaces are maintained. No joint effusion is seen. There is some early spur production. Soft Tissues: Unremarkable. ?? Procedure Note Michel Kunz MD - 09/26/2024 Exam: Right knee, 3 views Indication: trip and fall, bilateral knee pain after trauma. Comparison: None Findings: Bones and Joints: There is no fracture or suspicious bone lesion. There isno dislocation. The joint spaces are maintained. No joint effusion isseen. There is some early spur production. Soft Tissues: Unremarkable. IMPRESSION: No acute traumatic finding Reviewed and Electronically Signed By: Michel Kunz MD Signed Date and Time: 09/26/2024 1:51 PM us Terrence Parsons MD RAD XR ORDERABLES Final Resu lt * XR Elbow Left minimum 3 views (09/26/2024 1:35 PM EDT) Anatomical Region Laterality Modality Upper Extremities Digital Radiog komal 09/26/2024 1:43 PM EDT Impressions 09/26/2024 1:43 PM EDT Normal left elbow radiographs. Reviewed and Electronically Signed By: Michel Kunz MD Signed Date and Time: 09/26/2024 1:43 PM Narrative 09/26/2024 1:43 PM EDT Technique: Left elbow, 3 views Indication: trip and fall with pain at left hand, wrist, elbow. eval for fracture. Comparison: none Findings: Bones and Joints: There is no fracture or suspicious bone lesion. There is no dislocation. The joint spaces are maintained. No joint effusion is seen. Soft Tissues: Unremarkable. ?? Procedure Note Michel Kunz MD - 09/26/2024 Technique: Left elbow, 3 views Indication: trip and fall with pain at left hand, wrist, elbow. eval forfracture. Comparison: none Findings: Bones and Joints: There is no fracture or suspicious bone lesion. There isno dislocation. The joint spaces are maintained. No joint effusion isseen. Soft Tissues: Unremarkable. IMPRESSION: Normal left elbow radiographs. Reviewed and Electronically Signed By: Michel Kunz MD Signed Date and Time: 09/26/2024 1:43 PM us Terrence Parsons MD RAD XR ORDERABLES Final Resu lt * XR Wrist Left minimum 3 views (09/26/2024 1:35 PM EDT) Anatomical Region Laterality Modality Upper Extremities Digital Radiog komal 09/26/2024 1:48 PM EDT Impressions 09/26/2024 1:50 PM EDT Possible triquetral fracture. This determination is made more difficult by erosive arthropathy. Reviewed and Electronically Signed By: Michel Kunz MD Signed Date and Time: 09/26/2024 1:50 PM Narrative 09/26/2024 1:50 PM EDT Exam: Left wrist, four views Indication: trip and fall with pain at left hand, wrist, elbow. eval for fracture. Comparison: September 27, 2023 Findings: Bones and Joints: The lateral view shows a small bone fragment that may represent a triquetral fracture. As previously noted, the radiocarpal joint, carpus, and carpometacarpal joints show erosions and perhaps some fusions. Soft Tissues: Unremarkable. ?? Procedure Note Michel Kunz MD - 09/26/2024 Exam: Left wrist, four views Indication: trip and fall with pain at left hand, wrist, elbow. eval forfracture. Comparison: September 27, 2023 Findings: Bones and Joints: The lateral view shows a small bone fragment that mayrepresent a triquetral fracture. As previously noted, the radiocarpaljoint, carpus, and carpometacarpal joints show erosions and perhaps somefusions. Soft Tissues: Unremarkable. IMPRESSION: Possible triquetral fracture. This determination is made more difficult byerosive arthropathy. Reviewed and Electronically Signed By: Michel Kunz MD Signed Date and Time: 09/26/2024 1:50 PM us Terrence Parsons MD RAD XR ORDERABLES Final Resu lt * XR Hand Left minimum 3 views (09/26/2024 1:35 PM EDT) Anatomical Region Laterality Modality Upper Extremities Digital Radiog komal 09/26/2024 1:52 PM EDT Impressions 09/26/2024 1:53 PM EDT Possible triquetral fracture. This determination is made more difficult by an erosive arthropathy Reviewed and Electronically Signed By: Michel Kunz MD Signed Date and Time: 09/26/2024 1:53 PM Narrative 09/26/2024 1:53 PM EDT Exam: Left hand, 3 views Indication: trip and fall with pain at left hand, wrist, elbow. eval for fracture. Comparison: June 13, 2023 Findings: Bones and Joints: There may be a triquetral fracture. There is no other suggestion of acute fracture. There is an erosive arthropathy involving the radiocarpal joint, carpus, and carpometacarpal joints. Soft Tissues: Unremarkable. ?? Procedure Note Michel Kunz MD - 09/26/2024 Exam: Left hand, 3 views Indication: trip and fall with pain at left hand, wrist, elbow. eval forfracture. Comparison: June 13, 2023 Findings: Bones and Joints: There may be a triquetral fracture. There is no othersuggestion of acute fracture. There is an erosive arthropathy involvingthe radiocarpal joint, carpus, and carpometacarpal joints. Soft Tissues: Unremarkable. IMPRESSION: Possible triquetral fracture. This determination is made more difficult byan erosive arthropathy Reviewed and Electronically Signed By: Michel Kunz MD Signed Date and Time: 09/26/2024 1:53 PM us Terrence Parsons MD RAD XR ORDERABLES Final Resu lt * XR Hand Right minimum 3 views (09/26/2024 1:34 PM EDT) Anatomical Region Laterality Modality Upper Extremities Digital Radiog komal 09/26/2024 1:53 PM EDT Impressions 09/26/2024 1:53 PM EDT No acute traumatic finding Reviewed and Electronically Signed By: Michel Kunz MD Signed Date and Time: 09/26/2024 1:53 PM Narrative 09/26/2024 1:53 PM EDT Exam: Right hand, 3 views Indication: trip and fall, right hand pain, eval for fracture Comparison: none Findings: Bones and Joints: There is no fracture or suspicious bone lesion. There is no dislocation. The joint spaces are maintained. Soft Tissues: Unremarkable. ?? Procedure Note Michel Kunz MD - 09/26/2024 Exam: Right hand, 3 views Indication: trip and fall, right hand pain, eval for fracture Comparison: none Findings: Bones and Joints: There is no fracture or suspicious bone lesion. There isno dislocation. The joint spaces are maintained. Soft Tissues: Unremarkable. IMPRESSION: No acute traumatic finding Reviewed and Electronically Signed By: Michel Kunz MD Signed Date and Time: 09/26/2024 1:53 PM us Terrence Parsons MD RAD XR ORDERABLES Final Resu lt * CT Cervical Spine WO Contrast (09/26/2024 12:33 PM EDT) Anatomical Region Laterality Modality Spine Computed Tomogra phy 09/26/2024 12:4 3 PM EDT Impressions 09/26/2024 1:26 PM EDT 1. No acute cervical spine fracture. 2. Cervical spine degenerative changes with DISH. Reviewed and Electronically Signed By: Keo Levy MD Signed Date and Time: 09/26/2024 1:26 PM Narrative 09/26/2024 1:26 PM EDT CLINICAL INDICATION: Fall, headstrike, neck pain. Question fracture. COMPARISON: Cervical spine radiographs 06/26/2016, cervical spine MRI 01/19/2014. TECHNIQUE: Thin section axial imaging of the cervical spine with reconstruction in sagittal and coronal planes. Radiation dose: Radiation dose reduction techniques were employed. CTDIvol: 14.4 mGy. DLP: 254 mGy-cm. FINDINGS: Bones: There is no acute fracture. Vertebral body heights are maintained. There is mild disc degeneration at multiple levels with large anterior bridging osteophytes from C3-C6 and chronic appearing fragmented anterior osteophytes at C6-C7, compatible with diffuse idiopathic skeletal hyperostosis (DISH). Left facet bony ankylosis is noted at C3-C4. Atlantodens degenerative changes are noted anteriorly Alignment: There is no spondylolisthesis or facet malalignment. Disks/Spinal canal/Neural Foramina: There is no bony stenosis of the cervical spinal canal or neural foramina. Lung apices: Unremarkable. Other: There is no prevertebral soft tissue swelling. Procedure Note Keo Levy MD - 09/26/2024 CLINICAL INDICATION: Fall, headstrike, neck pain. Question fracture. COMPARISON: Cervical spine radiographs 06/26/2016, cervical spine MRI01/19/2014. TECHNIQUE: Thin section axial imaging of the cervical spine withreconstruction in sagittal and coronal planes. Radiation dose: Radiation dose reduction techniques were employed.CTDIvol: 14.4 mGy. DLP: 254 mGy-cm. FINDINGS: Bones: There is no acute fracture. Vertebral body heights aremaintained. There is mild disc degeneration at multiple levels with large anteriorbridging osteophytes from C3-C6 and chronic appearing fragmented anteriorosteophytes at C6-C7, compatible with diffuse idiopathic skeletalhyperostosis (DISH). Left facet bony ankylosis is noted at C3-C4. Atlantodens degenerativechanges are noted anteriorly Alignment: There is no spondylolisthesis or facet malalignment. Disks/Spinal canal/Neural Foramina: There is no bony stenosis of thecervical spinal canal or neural foramina. Lung apices: Unremarkable. Other: There is no prevertebral soft tissue swelling. IMPRESSION: 1. No acute cervical spine fracture. 2. Cervical spine degenerative changes with DISH. Reviewed and Electronically Signed By: Keo Levy MD Signed Date and Time: 09/26/2024 1:26 PM us Terrence Parsons MD RAD CT ORDERABLES Final Resu lt * HIV Antigen Antibody 5th Gen (04/10/2023 1:09 AM EDT) HIVAGAB QUALITATIVE NON-REAC TIVE NONREACTIVE [facility] Comment: This sample is negative for HIV-1 Antibody (Groups M and O), HIV-2 Antibody, and HIV-1 p24 Antigen. No further testing is required. The differentiation tests will be reported as Test Not Performed (TNP). HIV-1 ANTIBODY 5TH GEN TNP 0.00 - 0.99 INDEX [facility] HIV-2 ANTIBODY 5TH GEN TNP 0.00 - 0.99 INDEX [facility] HIV-1 ANTIGEN 5TH GEN TNP 0.00 - 0.99 INDEX [facility] HIV-1 ANTIBODY GEENIUS TNP [facility] HIV-2 ANTIBODY GEENIUS TNP [facility] HIV RESULT INTERPRETATION TNP [facility] 04/10/2023 1:09 AM EDT 04/10/2023 1:29 AM EDT [facility] - 04/13/2023 11:18 AM EDT MT IOR TO ORDERING, was verbal consent obtained? ??(Verbal consent by the patient or designee is REQUIR ED to order this test.)->YES us Rock Aguilar MD LABORATORY Final Result [facility] [address] [place] [address], * (ABNORMAL) Lipid Panel (04/10/2023 1:09 AM EDT) Cholesterol 114 0 - 239 mg/dL [facility] TRIGLYCERIDES 55 0 - 150 mg/dL [facility] HIGH DENSITY LIPOPROTEIN 38(L) 40 - 60 mg/dL [facility] LOW DENSITY LIPOPROTEIN DIRECT 59 0 - 189 mg/dL [facility] 04/10/2023 1:09 AM EDT 04/10/2023 1:29 AM EDT [facility] - 04/10/2023 9:24 AM EDT Tests added: LIPID,FE,TIBC,FERR,B12,FOL by TAD on 04/10/23 at 0729 by 29. Tests added: CK,PROCAL,HEP A AB, HEPB SURFACE ANTIGEN, HEP B SURGACE AB, HEP B CORE AB,TSH W/ REFLEX by TAD on 04/10/23 at 0544 by [email or web address]. Travis Cruz MD LABORATORY Final Result Performing Organization Address [facility]/[place] [address], * HUMAN PAPILLOMAVIRUS (07/24/2017 3:42 PM EST) HUMAN PAPILLOMAVIRUS Negative for HPV High Risk mRNA (HPV types: 16,18,31,33, 35,39,45,51, 52,56,58,59, 66,68) [facility] THINPREP CYTOLOGY TECHNIQUE / Unknown 07/24/2017 3:42 PM EST 07/24/2017 10:[address] MICROBIOLOGY Final Result Performing Organization Address [facility] [place] [address], [place] * CYTP CERV/VAG AUTO THIN LAYER PREP MNL SCREEN (07/24/2017 12:00 AM EST) PATHOLOGY REPORT SPEC #: [id number] ? RECD: 07/24/17 ??STATUS: SOUT SP TYPE: DRYWALL HANGER FRAMER ? ALICIA: 07/24/17- SUB DR: ELIDA WAY PA-C ENTERED: ??07/24/17 ORDERED: ??[id number] THIN PREP Performed at [place] [address] >>FINAL DIAGNOSIS<< ENDOCERVIX/EXOCERV IX (THINPREP PAP): NEGATIVE FOR INTRAEPITHELIAL LESION OR MALIGNANCY. FUNGAL ORGANISMS MORPHOLOGICALLY CONSISTENT WITH EDWIN SPECIES. SATISFACTORY FOR EVALUATION, TRANSFORMATION ZONE COMPONENT IS ABSENT. The Pap smear is a screening test in which both false positive and false negative results can occur. Thus, it should not be the sole means to diagnosis or exclude malignancy or a premalignant condition. Diagnosis by: KEV GABRIEL CTASCP Path procedures [id number] THIN PREP PAP ([id number]) MJ159, QC, QCRDT Signed (signatu re on file) KEV GABRIEL CTASCP 08/03/17 -- Endocervix/Exocer vix 07/24/2017 07/24/2017 10:[address] EST us [address] PATHOLOGY Final Result * (ABNORMAL) HEPATITIS C PCR QUAL TO QUANT (04/30/2015 12:00 PM EDT) HEPATITIS C ANTIBODY REACTIVE( A) NONREACTIVE [facility] Comment: This sample is Reactive for Hepatitis C Virus Antibody. Please refer to the Hepatitis C Algorithm on [employer] for instruction on appropriate follow-up. 04/30/2015 12:0 0 PM EDT 04/30/2015 3:54 PM EDT Greg Murdock MD LABORATORY Edited Result - Final [facility] [place] [id number] [place] [address], from Last 3 Months or Most Recently Relevant to Health Maintenance Additional Health Concerns Active Problems Noted Date Diagnosed Date [facility] COORDINATION 01/28/2021 [facility] RESOURCE COORDINATION 08/28/2021 [facility] RESOURCE COORDINATION 08/29/2021 [facility] RESOURCE COORDINATION 08/29/2021 Insurance HOMELESS [address] MEDICARE COMPLETE Advance Directives Documents on File Type Date Recorded Patient Go Cart Mechanic Expl anation HC PROXY 04/10/2023 8:28 AM Health Car e Proxy HC PROXY 12/07/2020 9:09 AM HC Proxy Fo rm 12/07/20 * Full Code (Latest Code Status on File) Date Activated Date Inactivated Comments 04/09/2023 11:18 PM * Full Code Date Activated Date Inactivated Comments 04/09/2023 3:59 PM 04/09/2023 11:18 PM * Full Code Date Activated Date Inactivated Comments 07/11/2019 12:00 AM 04/09/2023 3:59 PM * Full Code Date Activated Date Inactivated Comments 03/26/2019 5:31 PM 07/11/2019 12:00 AM Care Teams Turbine Operator Relationship Specialty Start Date End Date Ashley Howard MD [address] [address] PCP - General Internal Medicine 04/15/23 Ashley Howard MD [address] [address] PCP - Insurance PCP 09/03/24
--- OUTSIDE RECORDS SUMMARY | 2024-11-19 10:03 | XMS_ITS | Encounter Summary ---
Author Organization [employer] [facility] Address [address] [place] [address] Care Team Providers Care Window Unit Air Conditioning Mechanic Name Role Phone Greg Murdock MD Primary Care Provider Greg Murdock MD Unavailable [phone] Ginny Alberto COPPER FLOTATION OPERATOR Unavailable [phone] Ginny Alberto COPPER FLOTATION OPERATOR Unavailable [phone] Ramón Real Unavailable [phone] Ashley Howard MD Primary Care Provider [phone] Vinny Parker PA-C Unavailable [phone] Ashley Howard MD Unavailable [phone] Encounter Details Date Type Department Care Team (Late st Contact Info) Description 08/15/2020 ED Care Mgmt Encounter [facility] Case Management - [place] [id number] [place] [address] Hien Gordon RN Social History Tobacco Use Types Packs/Day Years Used Date Smoking Tobacco: Every Day Cigarettes 1 25 Smokeless Tobacco: Current Comments:smoking 2 pks a day because [...] hearing? Answer Date of Assessment Author No 07/11/2019 12:32 AM Emily Simmons RN * (RETIRED) Are you blind or do you have difficulty seeing? Answer Date of Assessment Author No 07/11/2019 12:32 AM Emily Simmons RN * (RETIRED) Do you have difficulty walking or climbing stairs? Answer Date of Assessment Author No 07/11/2019 12:32 AM Emily Simmons RN * (RETIRED) Do you have difficulty dressing or bathing? Answer Date of Assessment Author No 07/11/2019 12:32 AM Emily Simmons RN * (RETIRED) Because of a physical, mental, or emotional condition, do you have difficulty doing errands such as visiting a doctor's office or shopping? Answer Date of Assessment Author No 07/11/2019 12:32 AM Emily Simmons RN documented as of this encounter Mental Status * (RETIRED) Because of a physical, mental, or emotional condition, do you have serious difficulty concentrating, remembering, or making decisions? Answer Entry Date Author No 07/11/2019 12:32 AM Emily Simmons RN documented in this encounter Plan of Treatment Not on file documented as of this encounter Visit Diagnoses Not on filedocumented in this encounter Additional Health Concerns Infection Onset Date Last Indicated Resolved Time Rule out COVID-19 04/09/2023 04/09/2023 04/09/2023 4:00 [...] documented as of this encounter Care Teams Window Unit Air Conditioning Mechanic Relationship Specialty Start Date End Date Greg Murdock MD [address] [place] [address] PCP - General 01/19/14 04/14/23 Greg Murdock MD [address] [place] [address] PCP - Insurance PCP 02/02/15 05/04/23 Ashley Howard MD [address] [address] PCP - General Internal Medicine 04/15/23 Vinny Parker PA-C [address] [place] [address] PCP - Attributed PCP - PCF [facility] 10/08/21 06/04/23 Ashley Howard MD [address] [address] PCP - Insurance PCP 09/03/24 Ginny Alberto, [address] [address] Complex Care Management Primary Care Based - COPPER FLOTATION OPERATOR/CATALYST UNIT OPERATOR Family Medicine 12/16/22 01/06/23 Ginny Alberto, [facility] [address] [place] [address] Complex Care Management Primary Care Based - COPPER FLOTATION OPERATOR/CATALYST UNIT OPERATOR Family Medicine 02/18/23 03/05/23 Ramón Real, SMART ENERGY SPECIALIST [address] [facility] [place] [address] Community Health Worker Case Management 04/13/23 documented as of this encounter
--- OUTSIDE RECORDS SUMMARY | 2024-11-19 10:03 | XMS_ITS | Encounter Summary ---
Author Organization [facility] iance Address [address] [place] [address] Care Team Providers Care Commercial Counsel Name Role Phone Greg Murdock MD Primary Care Provider [phone] Greg Murdock MD Unavailable [phone] Ramón Real REHABILITATION THERAPIST Unavailable [phone] Tammy Soto CUSTOMER SALES ADVISOR Unavailable [phone] Linda Leblanc CUSTOMER SALES ADVISOR Unavailable [phone] Ginny Alberto CUSTOMER SALES ADVISOR Unavailable [phone] Belkis Londono (Inactive) RN Unavailable Ginny Alberto CUSTOMER SALES ADVISOR Unavailable [phone] Ginny Alberto CUSTOMER SALES ADVISOR Unavailable [phone] Ginny Alberto CUSTOMER SALES ADVISOR Unavailable [phone] Ramón Real REHABILITATION THERAPIST Unavailable [phone] Ashley Howard MD Primary Care Provider [phone] Vinny Parker PA-C Unavailable [phone] Ashley Howard MD Unavailable [phone] Reason for Visit * Reason Onset Date Comments Refill Request 01/02/2014 ALPRAZolam (XANA X) 1 MG tablet Encounter Details Date Type Department Care Team (Late st Contact Info) Description 01/02/2014 [facility] Primary Care - [facility] - Psychiatry [address] [place] [address] Keyon Roberts MD [address] [place] [address] Refill Request (ALPRAZolam (XANAX) 1 MG tablet ) Social History Tobacco Use Types Packs/Day Years Used Date Smoking Tobacco: Every Day Cigarettes Smokeless Tobacco: Current Comments:smoking 3 pks a day because holidays 06/22/13 Alcohol [...] documented as of this encounter Care Teams Commercial Counsel Relationship Specialty Start Date End Date Greg Murdock MD [address] [place] [address] PCP - General 01/19/14 04/14/23 Greg Murdock MD [address] [place] [address] PCP - Insurance PCP 02/02/15 05/04/23 Ashley Howard MD [address] [address] PCP - General Internal Medicine 04/15/23 Vinny Parker, [facility] [address] [place] [address] PCP - Attributed PCP - PCF [facility] 10/08/21 06/04/23 Ashley Howard MD [address] [address] PCP - Insurance PCP 09/03/24 Ramón Real LSW [address] [place] [address] Community Health Worker Case Management 03/28/19 Tammy Soto [address] [place] [address] Complex Care Management Primary Care Based - CUSTOMER SALES ADVISOR/SEAM STAYER Care Management 03/29/19 10/31/19 Linda Leblanc, CUSTOMER SALES ADVISOR [address] [facility] [place] [address] Intensive Clinical Advisor Behavioral Health 08/05/19 11/10/19 Ginny Alberto, [facility] [address] [facility] [place] [address] Complex Care Management Primary Care Based - [facility] Family Medicine 11/01/19 01/25/20 Belkis Londono (Inactive), RN [address] [place] [address] Complex Care Management Primary Care Based-RN 01/26/20 01/31/20 Ginny Alberto, [facility] [address] [place] [address] Complex Care Management Primary Care Based - [facility] Family Medicine 02/01/20 02/26/[address] [address] Complex Care Management Primary Care Based - [facility] Family Medicine 12/16/22 01/06/[address] [address] Complex Care Management Primary Care Based - [facility] Family Medicine 02/18/23 03/05/23 Ramón Real, REHABILITATION THERAPIST [address] [place] [address] Community Health Worker Case Management 04/13/23 documented as of this encounter
--- OUTSIDE RECORDS SUMMARY | 2024-11-19 10:03 | XMS_ITS | Encounter Summary ---
Author Organization [employer] [facility] iance Address [address] [place] [address] Care Team Providers Care Core Piler Name Role Phone Greg Murdock MD Primary Care Provider [phone] Greg Murdock MD Unavailable [phone] Ramón Real FILLING MIXER Unavailable [phone] Tammy Soto ADVERTISING REP Unavailable [phone] Linda Leblanc ADVERTISING REP Unavailable [phone] Ginny Alberto ADVERTISING REP Unavailable [phone] Belkis Londono (Inactive) RN Unavailable Ginny Alberto ADVERTISING REP Unavailable [phone] Ginny Alberto ADVERTISING REP Unavailable [phone] Ginny Alberto ADVERTISING REP Unavailable [phone] Ramón Real FILLING MIXER Unavailable [phone] Ashley Howard MD Primary Care Provider [phone] Vinny Parker PA-C Unavailable [phone] Ashley Howard MD Unavailable [phone] Reason for Visit * Reason Onset Date Comments Med Question 01/18/2014 Encounter Details Date Type Department Care Team (Late st Contact Info) Description 01/18/2014 Telephone [facility] Medical Specialties - [address] [place] [address] Shea Ng, RN Med Question Social History Tobacco Use Types Packs/Day Years [...] AM EST documented as of this encounter Progress Notes * Shea Ng - 01/18/2014 4:17 PM EDT Pt calls again regarding refill fioricet. Spoke with Dr Szymanski who agree's to send pt a limited rx by mail. Pt notified. documented in this encounter Plan of Treatment [...] documented as of this encounter Care Teams Core Piler Relationship Specialty Start Date End Date Greg Murdock MD [address] [place] [address] PCP - General 01/19/14 04/14/23 Greg Murdock MD [address] [place] [address] PCP - Insurance PCP 02/02/15 05/04/23 Ashley Howard MD [address] [address] PCP - General Internal Medicine 04/15/23 Vinny Parker PA-C [address] [place] [address] PCP - Attributed PCP - PCF [facility] 10/08/21 06/04/23 Ashley Howard MD [address] [address] PCP - Insurance PCP 09/03/24 Ramón Real LSW [address] [place] [address] Community Health Worker Case Management 03/28/19 Tammy Soto LICSW [address] [place] [address] [place] [address] Complex Care Management Primary Care Based - ADVERTISING REP/INDUSTRIAL SPRAYPAINTER Care Management 03/29/19 10/31/19 Linda Leblanc [facility] [address] [facility] [place] [address] Intensive Clinical Advisor Behavioral Health 08/05/19 11/10/19 RemyKenen, [facility] [address] [facility] [place] [address] Complex Care Management Primary Care Based - [facility] Family Medicine 11/01/19 01/25/20 Belkis Londono (Inactive), RN [address] [place] [address] Complex Care Management Primary Care Based-RN 01/26/20 01/31/20 Ginny Alberto, [address] [address] Complex Care Management Primary Care Based - [facility] Family Medicine 02/01/20 02/26/[address] [address] Complex Care Management Primary Care Based - [facility] Family Medicine 12/16/22 01/06/[address] [address] Complex Care Management Primary Care Based - [facility] Family Medicine 02/18/23 03/05/23 Ramón Real, FILLING MIXER [address] [place] [address] Community Health Worker Case Management 04/13/23 documented as of this encounter
--- OUTSIDE RECORDS SUMMARY | 2024-11-19 10:03 | XMS_ITS | Encounter Summary ---
Author Organization [employer] [facility] iance Address [address] [place] [address] Care Team Providers Care Auger Machine Offbearer Name Role Phone Greg Murdock MD Primary Care Provider [phone] Greg Murdock MD Unavailable [phone] Ramón Real [place] Unavailable [phone] Tammy Soto REVENUE FIELD AGENT Unavailable [phone] Linda Leblanc REVENUE FIELD AGENT Unavailable [phone] Ginny Alberto REVENUE FIELD AGENT Unavailable [phone] Belkis Londono (Inactive) RN Unavailable Ginny Alberto REVENUE FIELD AGENT Unavailable [phone] Ginny Alberto REVENUE FIELD AGENT Unavailable [phone] Ginny Alberto REVENUE FIELD AGENT Unavailable [phone] Ramón Real [place] Unavailable [phone] Ashley Howard MD Primary Care Provider [phone] Vinny Parker PA-C Unavailable [phone] Ashley Howard MD Unavailable [phone] Reason for Visit * Reason Onset Date Comments Refill Request 08/11/2013 amphetamine-dext roamphetamine (ADDERALL, 20MG,) 20 MG tablet Encounter Details Date Type Department Care Team (Late st Contact Info) Description 08/11/2013 [facility] Primary Care - [facility] - Psychiatry [address] [place] [address] Keyon Roberts MD [address] [place] [address] Refill Request (amphetamine-dextroamp hetamine (ADDERALL, 20MG,) 20 MG tablet ) Social History Tobacco Use [...] documented as of this encounter Care Teams Auger Machine Offbearer Relationship Specialty Start Date End Date Greg Murdock MD [address] [place] [address] PCP - General 01/19/14 04/14/23 Greg Murdock MD [address] [place] [address] PCP - Insurance PCP 02/02/15 05/04/23 Ashley Howard MD [address] [address] PCP - General Internal Medicine 04/15/23 Vinny Parker PA-C [address] [place] [address] PCP - Attributed PCP - [facility]F [facility] 10/08/21 06/04/23 Ashley Howard MD [address] [address] PCP - Insurance PCP 09/03/24 Ramón Real, [place] [address] [place] [address] Community Health Worker Case Management 03/28/19 Tammy Soto [facility] [address] [facility] [place] [address] Complex Care Management Primary Care Based - [facility] Care Management 03/29/19 10/31/19 Linda Leblanc [address] [place] [address] Intensive Clinical Advisor Behavioral Health 08/05/19 11/10/19 Ginny Alberto, [facility] [address] [place] [address] Complex Care Management Primary Care Based - [facility] Family Medicine 11/01/19 01/25/20 Belkis Londono (Inactive), RN [address] [place] [address] Complex Care Management Primary Care Based-RN 01/26/20 01/31/20 Ginny Alberto, [address] [address] Complex Care Management Primary Care Based - [facility] Family Medicine 02/01/20 02/26/[address] [address] Complex Care Management Primary Care Based - [facility] Family Medicine 12/16/22 01/06/[address] [address] Complex Care Management Primary Care Based - [facility] Family Medicine 02/18/23 03/05/23 Ramón Real, [place] [address] [facility] [place] [address] Community Health Worker Case Management 04/13/23 documented as of this encounter
--- OUTSIDE RECORDS SUMMARY | 2024-11-19 10:03 | XMS_ITS | Encounter Summary ---
Author Organization [employer] [facility] iance Address [address] [place] [address] Care Team Providers Care Communications Field Technician Name Role Phone Greg Murdock MD Primary Care Provider [phone] Greg Murdock MD Unavailable [phone] Ramón Real LEASE OUT WORKER Unavailable [phone] Tammy Soto SENIOR DATASTAGE DEVELOPER Unavailable [phone] Linda Leblanc SENIOR DATASTAGE DEVELOPER Unavailable [phone] Ginny Alberto SENIOR DATASTAGE DEVELOPER Unavailable [phone] Belkis Londono (Inactive) RN Unavailable Ginny Alberto SENIOR DATASTAGE DEVELOPER Unavailable [phone] Ginny Alberto SENIOR DATASTAGE DEVELOPER Unavailable [phone] Ginny Alberto SENIOR DATASTAGE DEVELOPER Unavailable [phone] Ramón Real LEASE OUT WORKER Unavailable [phone] Ashley Howard MD Primary Care Provider [phone] Vinny Parker PA-C Unavailable [phone] Ashley Howard MD Unavailable [phone] Encounter Details Date Type Department Care Team (Late st Contact Info) Description 11/10/2013 INTAKE (for intake staff use only) [facility] Adult Psychiatry [address] [place] [address] Oneyda Rodriguez, PhD [address] [place] [phone] (Work) Social History Tobacco Use Types Packs/Day Years [...] AM EST documented as of this encounter Miscellaneous Notes * Telephone Encounter - Michelle Romeo - 03/30/2015 4:47 PM EDT Patient left a message apologizing for not showing up to her appointment. She expressed a desire tocomplete testing. I left a message offering her 04/25/15 and 05/15/15 as possible appointments and to let me know if either of those days work for her. * Telephone Encounter - Michelle Romeo - 03/26/2015 5:13 PM EDT Left a message for the patient to remind her of her scheduled neuropsych appointment tomorrow. Provided the patient with my number should she need to cancel or re-schedule. * Telephone Encounter - Michelle Romeo - 03/21/2015 5:19 PM EDT Patient stated that she would like to follow through with neuropsych testing. I explained to her that she will hear back from us after we confirm insurance auth. * Telephone Encounter - Oneyda Pearson, - 01/27/2014 11:46 AM EDT [facility] psychological testing transferred to [facility] on 01/27/14. * Telephone Encounter - Oneyda Pearson, - 11/10/2013 3:16 PM EDT [facility] referral received 11/10/2013 and assigned for psychological testing to Rachel Buck. documented in this encounter Plan of Treatment [...] documented as of this encounter Care Teams Communications Field Technician Relationship Specialty Start Date End Date Greg Murdock MD [address] [place] [address] PCP - General 01/19/14 04/14/23 Greg Murdock MD [address] [place] [address] PCP - Insurance PCP 02/02/15 05/04/23 Ashley Howard MD [address] [address] PCP - General Internal Medicine 04/15/23 Vinny Parker PA-C [address] [place] [address] PCP - Attributed PCP - [facility]F [facility] 10/08/21 06/04/23 Ashley Howard MD [address] [address] PCP - Insurance PCP 09/03/24 Ramón Real LEASE OUT WORKER [address] [place] [address] Community Health Worker Case Management 03/28/19 Tammy Soto, [address] [place] [address] Complex Care Management Primary Care Based - [facility] Care Management 03/29/19 10/31/19 Linda Leblanc, [facility] [address] [facility] [place] [address] [facility] Clinical Advisor Behavioral Health 08/05/19 11/10/19 Ginny Alberto, [facility] [address] [facility] [place] [address] Complex Care Management Primary Care Based - [facility] Family Medicine 11/01/19 01/25/20 Belkis Londono (Inactive), RN [address] [place] [address] Complex Care Management Primary Care Based-RN 01/26/20 01/31/20 Ginny Alberto, [facility] [address] [place] [address] Complex Care Management Primary Care Based - [facility] Family Medicine 02/01/20 02/26/20 Ginny Alberto, [address] [address] Complex Care Management Primary Care Based - [facility] Family Medicine 12/16/22 01/06/23 Ginny Alberto, [address] [address] Complex Care Management Primary Care Based - [facility] Family Medicine 02/18/23 03/05/23 Ramón Real, LEASE OUT WORKER [address] [place] [address] Community Health Worker Case Management 04/13/23 documented as of this encounter
--- OUTSIDE RECORDS SUMMARY | 2024-11-19 10:03 | XMS_ITS | Referral Summary ---
Author Organization [facility] Address [address] [id number] Care Team Providers Care Skiing Instructor Name Role Phone Ashley Howard MD Primary Care Provider [phone] Allergies Active Allergy Reactions Criticality Noted Date Comments Lamotrigine Rash 01/13/2024 Medications * This document contains information received from the source organization and may not represent a complete record from that organization. butalbital-acet aminophen-caffe ine (FIORICET) 50-325-40 mg tablet Take 1 tablet by mouth every 4 hours as needed for headache. 4 Active baclofen (LIORESAL) 10 mg tablet Take 10 mg by mouth 3 times a day as needed for muscle spasms (back pain). 4 Active benztropine (COGENTIN) 1 mg tablet Take 0.5 mg by mouth once a day. 4 Active bacitracin 500 unit/gram ointment Apply 1 application. topically to the affected area 2 times a day. 3 Active doxycycline hyclate 100 mg tablet Take 100 mg by mouth 2 times a day. 4 Active haloperidoL (HALDOL) 5 mg tablet Take 2 mg by mouth 3 times a day. 4 Active Social History Tobacco Use Types Packs/Day Years Used Date Smoking Tobacco: Never Assessed Comments Unknown Sex and Gender Information Value Date Recorded Sex Assigned at Female 01/13/2024 11:15 AM EDT Legal Sex Female 11:13 AM EDT Gender Identity Not on file Sexual Orientation Not on file Last Filed Vital Signs Vital Sign Reading Time Taken Comments Blood Pressure 154/95 01/13/2024 11:24 AM EDT Pulse 92 01/13/2024 11:24 AM EDT Temperature 36.7 ??C (98.1 ??F) 01/13/2024 11:24 AM E DT Respiratory Rate 16 01/13/2024 11:24 AM EDT Oxygen Saturation 96% 01/13/2024 11:24 AM EDT Inhaled Oxygen Concentration - - Weight 68 kg (150 lb) 01/13/2024 11:24 AM EDT Height - - Body Mass Index - - Plan of Treatment Not on file Insurance MEDICARE [facility] Care Teams Skiing Instructor Relationship Specialty [place] [address] [place] [phone] PCP - General 01/13/24
--- OUTSIDE RECORDS SUMMARY | 2024-11-19 10:03 | XMS_ITS | Encounter Summary ---
Author Organization [employer] [facility] iance Address [address] [place] [address] Care Team Providers Care Director Sports Name Role Phone Greg Murdock MD Primary Care Provider [phone] Greg Murdock MD Unavailable [phone] Ramón Real HOTEL NIGHT AUDITOR Unavailable [phone] Charles, Tammy MOTORCYCLE MAKER Unavailable [phone] Linda Leblanc MOTORCYCLE MAKER Unavailable [phone] Ginny Alberto MOTORCYCLE MAKER Unavailable [phone] Belkis Londono (Inactive) RN Unavailable Ginny Alberto MOTORCYCLE MAKER Unavailable [phone] Ginny Alberto MOTORCYCLE MAKER Unavailable [phone] Ginny Alberto MOTORCYCLE MAKER Unavailable +[phone] Ramón Real HOTEL NIGHT AUDITOR Unavailable +[phone] Ashley Howard MD Primary Care Provider [phone] Vinny Parker PA-C Unavailable [phone] Ashley Howard MD Unavailable [phone] Encounter Details Date Type Department Care Team (Late st Contact Info) Description 10/21/2013 BH Orders Only [facility] Primary Care - [facility] - Psychiatry [address] [place], [place] [id number] Madina Chaudhary APRN [address] [place] [address] [phone] Social History Tobacco Use Types Packs/Day Years [...] documented as of this encounter Care Teams Director Sports Relationship Specialty Start Date End Date Greg Murdock MD [address] [place] [address] PCP - General 01/19/14 04/14/23 Greg Murdock MD [address] [place] [address] PCP - Insurance PCP 02/02/15 05/04/23 Ashley Howard MD [address] [address] PCP - General Internal Medicine 04/15/23 Vinny Parker PA-C [address] [place] [address] PCP - Attributed PCP - PCF [facility] 10/08/21 06/04/23 Ashley Howard MD [address] [address] PCP - Insurance PCP 09/03/24 Ramón Real, HOTEL NIGHT AUDITOR [address] [place] [address] Community Health Worker Case Management 03/28/19 Tammy Soto, [address] [place] [address] Complex Care Management Primary Care Based - [facility] Care Management 03/29/19 10/31/19 Linda Leblanc [address] [place] [address] Intensive Clinical Advisor Behavioral Health 08/05/19 11/10/19 Ginny Alberto [address] [place] [address] Complex Care Management Primary Care Based - [facility] Family Medicine 11/01/19 01/25/20 Belkis Londono (Inactive), RN [address] [place] [address] Complex Care Management Primary Care Based-RN 01/26/20 01/31/20 Ginny Alberto, [facility] [address] [place] [address] Complex Care Management Primary Care Based - [facility] Family Medicine 02/01/20 02/26/20 Ginny Alberto, [address] [address] Complex Care Management Primary Care Based - [facility] Family Medicine 12/16/22 01/06/23 [facility] [address] [place] [address] Complex Care Management Primary Care Based - [facility] Family Medicine 02/18/23 03/05/23 Ramón Real, HOTEL NIGHT AUDITOR [address] [facility] [place] [address] Community Health Worker Case Management 04/13/23 documented as of this encounter
--- OUTSIDE RECORDS SUMMARY | 2024-11-19 10:03 | XMS_ITS | Encounter Summary ---
Author Organization [employer] [facility] iance Address [address] [place] [address] Care Team Providers Care Anesthesiology Tech Name Role Phone Greg Murdock MD Primary Care Provider [phone] Greg Murdock MD Unavailable [phone] Ramón Real SALES ACCOUNT DIRECTOR Unavailable [phone] Charles, Tammy SAFETY ADMIN ASSISTANT Unavailable [phone] Linda Leblanc SAFETY ADMIN ASSISTANT Unavailable [phone] Ginny Alberto SAFETY ADMIN ASSISTANT Unavailable [phone] Belkis Londono (Inactive) RN Unavailable Ginny Alberto SAFETY ADMIN ASSISTANT Unavailable [phone] Ginny Alberto SAFETY ADMIN ASSISTANT Unavailable [phone] Ginny Alberto SAFETY ADMIN ASSISTANT Unavailable [phone] Ramón Real SALES ACCOUNT DIRECTOR Unavailable [phone] Ashley Howard MD Primary Care Provider [phone] Vinny Parker PA-C Unavailable [phone] Ashley Howard MD Unavailable [phone] Reason for Visit * Reason Onset Date Comments Refill Request 02/23/2015 Encounter Details Date Type Department Care Team ([facility] st Contact Info) Description 02/23/2015 Telephone [facility] - Psychiatry [address] [place] [address] Ilya Bell MD [address] [place] [address] [phone] Refill Request Social History Tobacco Use Types Packs/Day Years [...] as of this encounter Progress Notes * Vanesa Pozo(Inactive) - 02/23/2015 11:58 AM EDT Person calling on behalf of patient: Patient (self) Edwina Caballero is a 34 year old female - medication(s) being requested: Alprazolam 1 mg (patient states she had to take 1 tablet up to 4x daily because she had a seizure this week and she had to take more than what was written on the prescription, patient states she called the pharmacy and they will not refill the prescription until Thursday and the patient states she can't wait until Thursday and that she doesn't want to have another seizure, patient states she had discussed with to have her medication increased to QID, but it hasn't been done yet) Patient will like a call back at [phone] Last Office Visit: 01/31/15 Last Physical Exam: 06/20/14 Other Med Adult: Most Recent BP Reading(s) 02/08/15 : 120/90 No results found for this basename: cholesterol LOW DENSITY LIPOPROTEIN DIRECT (mg/dL) Date Value 09/08/2014 99 No results found for this basename: HDL No results found for this basename: tg THYROID SCREEN TSH REFLEX FT4 (uIU/mL) Date Value 09/08/2014 2.310 No results found for this basename: TSH HEMOGLOBIN A1C (%) Date Value 09/08/2014 5.6 INR (no units) Date Value 08/01/2012 < 1.0* Documented patient preferred pharmacies: [facility] [address] documented in this encounter Plan of Treatment [...] documented as of this encounter Care Teams Anesthesiology Tech Relationship Specialty Start Date End Date Greg Murdock MD [address] [place] [phone] PCP - General 01/19/14 04/14/23 Greg Murdock MD [address] [place] [address] PCP - Insurance PCP 02/02/15 05/04/23 Ashley Howard MD [address] [address] PCP - General Internal Medicine 04/15/23 Vinny Parker PA-C [address] [place] [address] PCP - Attributed PCP - PCF [facility] 10/08/21 06/04/23 Ashley Howard MD [address] [address] PCP - Insurance PCP 09/03/24 Ramón Real SALES ACCOUNT DIRECTOR [address] [place] [address] Community Health Worker Case Management 03/28/19 Tammy Soto, [address] [place] [address] Complex Care Management Primary Care Based - [facility] Care Management 03/29/19 10/31/19 Linda Leblanc, [facility] [address] [facility] [place] [address] [facility] Clinical Advisor Behavioral Health 08/05/19 11/10/19 Ginny Alberto, [facility] [address] [facility] [place] [address] Complex Care Management Primary Care Based - [facility] Family Medicine 11/01/19 01/25/20 Belkis Londono (Inactive), RN [address] [place] [address] Complex Care Management Primary Care Based-RN 01/26/20 01/31/20 Ginny Alberto, [facility] [address] [place] [address] Complex Care Management Primary Care Based - [facility] Family Medicine 02/01/20 02/26/20 Ginny Alberto, [address] [address] Complex Care Management Primary Care Based - [facility] Family Medicine 12/16/22 01/06/23 Ginny Alberto, [address] [address] Complex Care Management Primary Care Based - [facility] Family Medicine 02/18/23 03/05/23 Ramón Real, SALES ACCOUNT DIRECTOR [address] [place] [address] Community Health Worker Case Management 04/13/23 documented as of this encounter
--- OUTSIDE RECORDS SUMMARY | 2024-11-19 10:03 | XMS_ITS | Encounter Summary ---
Author Organization [employer] [facility] iance Address [address] [place] [address] Care Team Providers Care Paint Brush Maker Name Role Phone Greg Murdock MD Primary Care Provider [phone] Greg Murdock MD Unavailable [phone] Ramón Real SEMICONDUCTOR PACKAGES PLATEMAKER Unavailable [phone] Tammy Soto LOADING AND UNLOADING SUPERVISOR Unavailable [phone] Linda Leblanc LOADING AND UNLOADING SUPERVISOR Unavailable [phone] Ginny Alberto LOADING AND UNLOADING SUPERVISOR Unavailable [phone] Belkis Londono (Inactive) RN Unavailable Ginny Alberto LOADING AND UNLOADING SUPERVISOR Unavailable [phone] Ginny Alberto LOADING AND UNLOADING SUPERVISOR Unavailable [phone] Ginny Alberto LOADING AND UNLOADING SUPERVISOR Unavailable [phone] Ramón Real SEMICONDUCTOR PACKAGES PLATEMAKER Unavailable [phone] Ashley Howard MD Primary Care Provider [phone] Vinny Parker PA-C Unavailable [phone] Ashley Howard MD Unavailable [phone] Reason for Visit * Reason Onset Date Comments Refill Request 10/04/2013 amphetamine-dext roamphetamine (ADDERALL, 30MG,) 30 MG tablet Encounter Details Date Type Department Care Team (Late st Contact Info) Description 10/04/2013 Tel [facility] Primary Care - [facility] - Psychiatry [address] [place] [address] Keyon Roberts MD [address] [place] [address] Refill Request (amphetamine-dextroamp hetamine (ADDERALL, 30MG,) 30 MG tablet) Social History Tobacco Use Types [...] documented as of this encounter Care Teams Paint Brush Maker Relationship Specialty Start Date End Date Greg Murdock MD [address] [place] [address] PCP - General 01/19/14 04/14/23 Greg Murdock MD [address] [place] [address] PCP - Insurance PCP 02/02/15 05/04/23 Ashley Howard MD [address] [address] PCP - General Internal Medicine 04/15/23 Vinny Parker PA-C [address] [place] [address] PCP - Attributed PCP - PCF [facility] 10/08/21 06/04/23 Ashley Howard MD [address] [address] PCP - Insurance PCP 09/03/24 Ramón Real, SEMICONDUCTOR PACKAGES PLATEMAKER [address] [place] [address] Community Health Worker Case Management 03/28/19 Tammy Soto [facility] [address] [facility] [place] [address] Complex Care Management Primary Care Based - [facility] Care Management 03/29/19 10/31/19 Linda Leblanc [address] [place] [address] Intensive Clinical Advisor Behavioral Health 08/05/19 11/10/19 Ginny Alberto, [facility] [address] [place] [address] Complex Care Management Primary Care Based - [facility] Family Medicine 11/01/19 01/25/20 Belkis Londono (Inactive), RN [address] [place] [address] Complex Care Management Primary Care Based-RN 01/26/20 01/31/20 Ginny Alberto, [address] [address] Complex Care Management Primary Care Based - [facility] Family Medicine 02/01/20 02/26/20 [address] [address] Complex Care Management Primary Care Based - [facility] Family Medicine 12/16/22 01/06/23 [address] [address] Complex Care Management Primary Care Based - [facility] Family Medicine 02/18/23 03/05/23 Ramón Real, SEMICONDUCTOR PACKAGES PLATEMAKER [address] [facility] [place] [address] Community Health Worker Case Management 04/13/23 documented as of this encounter
--- OUTSIDE RECORDS SUMMARY | 2024-11-19 10:03 | XMS_ITS | Encounter Summary ---
Author Organization [employer] [facility] iance Address [address] [place] [address] Care Team Providers Care Counter Intelligence Technician Name Role Phone Greg Murdock MD Primary Care Provider [phone] Greg Murdock MD Unavailable [phone] Ramón Real BIOMASS TECHNICIAN Unavailable [phone] Tammy Soto OLIVING MACHINE OPERATOR Unavailable [phone] Linda Leblanc OLIVING MACHINE OPERATOR Unavailable [phone] Ginny Alberto OLIVING MACHINE OPERATOR Unavailable [phone] Belkis Londono (Inactive) RN Unavailable Ginny Alberto OLIVING MACHINE OPERATOR Unavailable [phone] Ginny Alberto OLIVING MACHINE OPERATOR Unavailable [phone] Ginny Alberto OLIVING MACHINE OPERATOR Unavailable [phone] Ramón Real BIOMASS TECHNICIAN Unavailable [phone] Ashley Howard MD Primary Care Provider [phone] Vinny Parker PA-C Unavailable [phone] Ashley Howard MD Unavailable [phone] Reason for Visit * Reason Onset Date Comments Refill Request 09/05/2013 amphetamine-dext roamphetamine (ADDERALL, 30MG,) 30 MG tablet Encounter Details Date Type Department Care Team (Late st Contact Info) Description 09/05/2013 [facility] Primary Care - [facility] - Psychiatry [address] [place] [address] Keyon Roberts MD [address] [place] [address] Refill Request (amphetamine-dextroamp hetamine (ADDERALL, 30MG,) 30 [...] documented as of this encounter Care Teams Counter Intelligence Technician Relationship Specialty Start Date End Date Greg Murdock MD [address] [place] [address] PCP - General 01/19/14 04/14/23 Greg Murdock MD [address] [place] [address] PCP - Insurance PCP 02/02/15 05/04/23 Ashley Howard MD [address] [address] PCP - General Internal Medicine 04/15/23 Vinny Parker PA-C [address] [place] [address] PCP - Attributed PCP - PCF [facility] 10/08/21 06/04/23 Ashley Howard MD [address] [address] PCP - Insurance PCP 09/03/24 Ramón Real, BIOMASS TECHNICIAN [address] [place] [address] Community Health Worker Case Management 03/28/19 Tammy Soto [facility] [address] [facility] [address] Complex Care Management Primary Care Based - [facility] Care Management 03/29/19 10/31/19 Linda Leblanc [address] [place] [address] Intensive Clinical Advisor Behavioral Health 08/05/19 11/10/19 Ginny Alberto, [facility] [address] [place] [address] Complex Care Management Primary Care Based - [facility] Family Medicine 11/01/19 01/25/20 Belkis Londono (Inactive), RN [address] [place] [address] Complex Care Management Primary Care Based-RN 01/26/20 01/31/20 Ginny Alberto, [address] [address] Complex Care Management Primary Care Based - [facility] Family Medicine 02/01/20 02/26/[address] [address] Complex Care Management Primary Care Based - [facility] Family Medicine 12/16/22 01/06/23 [address] [address] Complex Care Management Primary Care Based - [facility] Family Medicine 02/18/23 03/05/23 Ramón Real, BIOMASS TECHNICIAN [address] [facility] [place] [address] Community Health Worker Case Management 04/13/23 documented as of this encounter
--- OUTSIDE RECORDS SUMMARY | 2024-11-19 10:03 | XMS_ITS | Encounter Summary ---
Author Organization [facility] iance Address [address] [place] [address] Care Team Providers Care Merchandise Coordinator Name Role Phone Greg Murdock MD Primary Care Provider [phone] Greg Murdock MD Unavailable [phone] Ramón Real DISBURSEMENT CLERK Unavailable [phone] Tammy Soto REJECTED ITEMS CLERK Unavailable [phone] Linda Leblanc REJECTED ITEMS CLERK Unavailable [phone] Ginny Alberto REJECTED ITEMS CLERK Unavailable [phone] Belkis Londono (Inactive) RN Unavailable Ginny Alberto REJECTED ITEMS CLERK Unavailable [phone] Ginny Alberot REJECTED ITEMS CLERK Unavailable [phone] Ginny Alberto REJECTED ITEMS CLERK Unavailable [phone] Ramón Real DISBURSEMENT CLERK Unavailable [phone] Ashley Howard MD Primary Care Provider [phone] Vinny Parker PA-C Unavailable [phone] Ashley Howard MD Unavailable [phone] Encounter Details Date Type Department Care Team (Late st Contact Info) Description 10/20/2013 INTAKE (for intake staff use only) [facility] - Psychiatry [address] [place] [address] Minna Cardona REJECTED ITEMS CLERK [address] [place] [address] [phone] Social History Tobacco Use Types Packs/Day Years [...] encounter Miscellaneous Notes * Telephone Encounter - Racheal Cullen (INACTIVE) - 10/25/2013 3:11 PM EDT Your referral will be presented to the Staff Team on 10/26/13 to see if anyone has room to see her. * Telephone Encounter - Racheal Cullen (INACTIVE) - 10/20/2013 9:03 AM EDT Thank you for your referral. Your patient will be presented at the next Dispo. Meeting. documented in this encounter Plan of Treatment [...] documented as of this encounter Care Teams Merchandise Coordinator Relationship Specialty Start Date End Date Greg Murdock MD [address] [place] [address] PCP - General 01/19/14 04/14/23 Greg Murdock MD [address] [place] [address] PCP - Insurance PCP 02/02/15 05/04/23 Ashley Howard MD [address] [address] PCP - General Internal Medicine 04/15/23 Vinny Parker PA-C [address] [place] [address] PCP - Attributed PCP - PCF [facility] 10/08/21 06/04/23 Ashley Howard MD [address] [address] PCP - Insurance PCP 09/03/24 Ramón Real, DISBURSEMENT CLERK [address] [place] [address] Community Health Worker Case Management 03/28/19 Tammy Soto, [address] [address] Complex Care Management Primary Care Based - [facility] Care Management 03/29/19 10/31/[address] [address] [facility] Clinical Advisor Behavioral Health 08/05/19 11/10/[address] [address] Complex Care Management Primary Care Based - [facility] Family Medicine 11/01/19 01/25/20 Belkis Londono (Inactive), RN [address] [place] [address] Complex Care Management Primary Care Based-RN 01/26/20 01/31/[address] [address] Complex Care Management Primary Care Based - [facility] Family Medicine 02/01/20 02/26/[address] [address] Complex Care Management Primary Care Based - [facility] Family Medicine 12/16/22 01/06/23 [address] [address] Complex Care Management Primary Care Based - [facility] Family Medicine 02/18/23 03/05/23 Ramón Real LSW [address] [place] [address] Community Health Worker Case Management 04/13/23 documented as of this encounter
--- OUTSIDE RECORDS SUMMARY | 2024-11-19 10:03 | XMS_ITS | Encounter Summary ---
Author Organization [employer] [facility] iance Address [address] [place] [address] Care Team Providers Care Top Hat Body Maker Name Role Phone Greg Murdock MD Primary Care Provider [phone] Greg Murdock MD Unavailable [phone] Ramón Real DRY CHARGE PROCESS ATTENDANT Unavailable [phone] Tammy Soto HANDLE ASSEMBLER Unavailable [phone] Linda Leblanc HANDLE ASSEMBLER Unavailable +[phone] Ginny Alberto HANDLE ASSEMBLER Unavailable [phone] Belkis Londono (Inactive) RN Unavailable Ginny Alberto HANDLE ASSEMBLER Unavailable [phone] Ginny Alberto HANDLE ASSEMBLER Unavailable [phone] Ginny Alberto HANDLE ASSEMBLER Unavailable [phone] Ramón Real DRY CHARGE PROCESS ATTENDANT Unavailable [phone] Ashley Howard MD Primary Care Provider [phone] Vinny Parker PA-C Unavailable [phone] Ashley Howard MD Unavailable [phone] Reason for Visit * Reason Onset Date Comments Refill Request 09/29/2013 amphetamine-dext roamphetamine (ADDERALL, 30MG,) 30 MG tablet Encounter Details Date Type Department Care Team (Late st Contact Info) Description 09/29/2013 [facility] Primary Care - [facility] - Psychiatry [address] [place] [address] Natasha Shepard MD Refill Request (amphetamine-dextroamp hetamine (ADDERALL, 30MG,) 30 [...] 05/14/2023 05/14/2023 3:40 PM EST Rule out COVID-06/13/2023 06/13/2023 06/13/2023 8:59 PM EST documented as of this encounter Care Teams Top Hat Body Maker Relationship Specialty Start Date End Date Greg Murdock MD [address] [place] [address] PCP - General 01/19/14 04/14/23 Greg Murdock MD [address] [place] [address] PCP - Insurance PCP 02/02/15 05/04/23 Ashley Howard MD [address] [address] PCP - General Internal Medicine 04/15/23 Vinny Parker PA-C [address] [place] [address] PCP - Attributed PCP - PCF [facility] 10/08/21 06/04/23 Ashley Howard MD [address] [address] PCP - Insurance PCP 09/03/24 Ramón Real DRY CHARGE PROCESS ATTENDANT [address] [place] [address] Community Health Worker Case Management 03/28/19 Tammy Soto [facility] [address] [facility] [place] [address] Complex Care Management Primary Care Based - [facility] Care Management 03/29/19 10/31/19 Linda Leblanc, [facility] [address] [facility] [address] Intensive Clinical Advisor Behavioral Health 08/05/19 11/10/19 Ginny Alberto, [facility] [address] [place] [address] Complex Care Management Primary Care Based - [facility] Family Medicine 11/01/19 01/25/20 Belkis Londono (Inactive), RN [address] [place] [address] Complex Care Management Primary Care Based-RN 01/26/20 01/31/20 Ginny Alberto, [facility] [address] [place] [address] Complex Care Management Primary Care Based - [facility] Family Medicine 02/01/20 02/26/20 [facility] [address] [place] [address] Complex Care Management Primary Care Based - [facility] Family Medicine 12/16/22 01/06/[address] [address] Complex Care Management Primary Care Based - [facility] Family Medicine 02/18/23 03/05/23 Ramón Real, DRY CHARGE PROCESS ATTENDANT [address] [facility] [place] [address] Community Health Worker Case Management 04/13/23 documented as of this encounter
--- OUTSIDE RECORDS SUMMARY | 2024-11-19 10:03 | XMS_ITS | Clinical Summary ---
Author Organization [facility] Address [address] [id number] Care Team Providers Care Auto Customize Painter Name Role Phone Ashley Howard MD Primary Care Provider [phone] Allergies Active Allergy Reactions Criticality Noted Date [...] Mass Index - - Plan of Treatment Health Maintenance Due Date Last Done Comments Cervical Cancer Screening 1980 HIV Screening 1980 HPV and Pap Smear 1980 Hepatitis C Screening 1980 Pap Smear 1980 Medicare AWV 1981 Varicella Vaccines (1 of 2 - 13+ 2-dose series) 1993 Hepatitis B Vaccines (1 of 3 - 19+ 3-dose series) 09/23/1999 DTaP,Tdap,and Td Vaccines (1 - Tdap) 2002 Mammogram 2020 COVID-19 Vaccine (1 - 2023-2 5 season) 2024 Alcohol/Substance Use Screening 07/06/2024 Depression Screening and Follow-Up 07/06/2024 Social Drivers of Health Caterina ual Screening 07/06/2024 Influenza Vaccine (Season Ended) 2025 RSV Vaccine (60+ years old a nd patients) (1 - 1-dose 75+ series) 09/23/2055 Pneumococcal Vaccine: Pediat kevon (0-5 Years) and At-Risk Patients (6-50 Years) Aged Out No longer eligible b ased on patient's age to complete this topic Insurance MEDICARE [facility] Care Teams Auto Customize Painter Relationship Specialty Start Date End Date Ashley Howard MD [address] [place] [phone] PCP - General 01/13/24
--- OUTSIDE RECORDS SUMMARY | 2024-11-19 10:03 | XMS_ITS | Encounter Summary ---
Author Organization [facility] iance Address [address] [place] [address] Care Team Providers Care Retail Assistant Name Role Phone Greg Murdock MD Primary Care Provider [phone] Greg Murdock MD Unavailable [phone] Ramón Real RETAIL SALESWORKER Unavailable [phone] Tammy Soto GENERAL SUPERINTENDENT Unavailable [phone] Linda Leblanc GENERAL SUPERINTENDENT Unavailable +[phone] Ginny Alberto GENERAL SUPERINTENDENT Unavailable [phone] Belkis Londono (Inactive) RN Unavailable Ginny Alberto GENERAL SUPERINTENDENT Unavailable [phone] Ginny Alberto GENERAL SUPERINTENDENT Unavailable [phone] Ginny Alberto GENERAL SUPERINTENDENT Unavailable [phone] Ramón Real RETAIL SALESWORKER Unavailable [phone] Ashley Howard MD Primary Care Provider [phone] Vinny Parker PA-C Unavailable [phone] Ashley Howard MD Unavailable [phone] Reason for Visit * Reason Onset Date Comments Questions 06/23/2018 Encounter Details Date Type Department Care Team ([facility] st Contact Info) Description 06/23/2018 Telephone [facility] Medical Specialties - [address] [place] [address] Shea Ng, RN Questions Social History Tobacco Use Types Packs/Day Years [...] encounter Miscellaneous Notes * Telephone Encounter - Rukhsana Betancourt(Inactive) - 06/24/2018 11:06 AM EST ----- Message from Trinity Cheema sent at 06/23/2018 10:25 AM EST ----- Regarding: FW: ----- Message ----- From: Bettie Castellanos RN Sent: 06/23/2018 9:12 AM To: Trinity Cheema Subject: FW: I think this is for EMS ----- Message ----- From: Trinity Cheema Sent: 06/23/2018 9:05 AM To: [facility] Nurses Pool Subject: Dr.Brown [facility] Medical Specialties - [facility] Edwina Caballero [id number], 37 year old, female, Telephone Information: Patient's Preferred Pharmacy: [id number] - [facility] [address] [facility] [place] [address] [facility] CONFIRMED TODAY: Yes CALL BACK NUMBER: [phone] Best time to call back: / Cell phone: Other phone: Available times: Patient's language of care: Estonian Patient does not need an senior media director. Patient's PCP: Greg Murdock MD Person calling on behalf of patient: Patient (self) Calls today patient has an appt with you on 08/19/17, she wants to be considered for a special appointment sooner? * Telephone Encounter - Shea Ng - 06/23/2018 10:29 AM EST ----- Message from Trinity Cheema sent at 06/23/2018 10:25 AM EST ----- Regarding: FW: ----- Message ----- From: Bettie Castellanos RN Sent: 06/23/2018 9:12 AM To: Trinity Cheema Subject: FW: I think this is for EMS ----- Message ----- From: Trinity Cheema Sent: 06/23/2018 9:05 AM To: [facility] Nurses [place] Subject: Dr.Brown [facility] Medical Specialties - [facility] Edwina Caballero [id number], 37 year old, female, Telephone Information: Patient's Preferred Pharmacy: [id number] [facility] - [address] [facility]-[address] CONFIRMED TODAY: Yes CALL BACK NUMBER: [phone] Best time to call back: / Cell phone: Other phone: Available times: Patient's language of care: Estonian Patient does not need an senior media director. Patient's PCP: Greg Murdock MD Person calling on behalf of patient: Patient (self) Calls today patient has an appt with you on 08/19/17, she wants to be considered for a special appointment sooner? documented in this encounter Plan of Treatment [...] documented as of this encounter Care Teams Retail Assistant Relationship Specialty Start Date End Date Greg Murdock MD [address] [place] [phone] PCP - General 01/19/14 04/14/23 Greg Murdock MD [address] [place] [address] PCP - Insurance PCP 02/02/15 05/04/23 Ashley Howard MD [address] [address] PCP - General Internal Medicine 04/15/23 Vinny Parker PA-C [address] [place] [address] PCP - Attributed PCP - PCF [facility] 10/08/21 06/04/23 Ashley Howard MD [address] [address] PCP - Insurance PCP 09/03/24 Ramón Real, RETAIL SALESWORKER [address] [place] [address] Community Health Worker Case Management 03/28/19 Tammy Soto, [address] [address] Complex Care Management Primary Care Based - [facility] Care Management 03/29/19 10/31/19 Linda Leblanc, [address] [place] [place] [address] Intensive Clinical Advisor Behavioral Health 08/05/19 11/10/19 Ginny Alberto, [address] [place] [address] Complex Care Management Primary Care Based - [facility] Family Medicine 11/01/19 01/25/20 Belkis Londono (Inactive), RN [address] [place] [address] Complex Care Management Primary Care Based-RN 01/26/20 01/31/20 Ginny Alberto [facility] [address] [facility] [place] [address] Complex Care Management Primary Care Based - [facility] Family Medicine 02/01/20 02/26/[address] [address] Complex Care Management Primary Care Based - [facility] Family Medicine 12/16/22 01/06/[address] [address] Complex Care Management Primary Care Based - [facility] Family Medicine 02/18/23 03/05/23 Ramón Real, RETAIL SALESWORKER [address] [place] [address] Community Health Worker Case Management 04/13/23 documented as of this encounter
--- OUTSIDE RECORDS SUMMARY | 2024-11-19 10:04 | XMS_ITS | Encounter Summary ---
Author Organization [facility] iance Address [address] [place] [address] Care Team Providers Care Condominium Association Manager Name Role Phone Greg Murdock MD Primary Care Provider [phone] Greg Murdock MD Unavailable [phone] Ramón Real MED ASST Unavailable [phone] Charles, Tammy RECYCLABLE MATERIALS COLLECTOR Unavailable [phone] Linda Leblanc RECYCLABLE MATERIALS COLLECTOR Unavailable [phone] Ginny Alberto RECYCLABLE MATERIALS COLLECTOR Unavailable [phone] Belkis Londono (Inactive) RN Unavailable Ginny Alberto RECYCLABLE MATERIALS COLLECTOR Unavailable [phone] Ginny Alberto RECYCLABLE MATERIALS COLLECTOR Unavailable [phone] Ginny Alberto RECYCLABLE MATERIALS COLLECTOR Unavailable [phone] Ramón Real MED ASST Unavailable [phone] Ashley Howard MD Primary Care Provider [phone] Vinny Parker PA-C Unavailable [phone] Ashley Howard MD Unavailable [phone] Reason for Visit * Reason Onset Date Comments Refill Request 06/19/2016 Encounter Details Date Type Department Care Team ([facility] st Contact Info) Description 06/19/2016 Telephone [facility] Primary Care - [address] [address] Greg Murdock MD [address] [place] [address] Refill Request Social History Tobacco Use Types [...] encounter Miscellaneous Notes * Telephone Encounter - Yaquelin Carrasco (INACTIVE) A - 06/19/2016 11:11 AM EST ----- Message from Arsenio Zelaya sent at 06/19/2016 9:21 AM EST ----- Regarding: Rx [facility] Person calling on behalf of patient: Pharmacy May list multiple medications in this section Medicine Name: cyclobenzaprine (FLEXERIL) 10 MG tablet Dosage: Frequency (how many pills, how many times a day): Number of pills left: Documented patient preferred pharmacies: [id number] Pharmacy Name: Pharmacy Telephone Number: Pharmacy Fax Number: CALL BACK NUMBER: Cell phone: Other phone: Available times: Patient's language of care: Georgian Patient needs a bridge club manager. documented in this encounter Plan of Treatment [...] documented as of this encounter Care Teams Condominium Association Manager Relationship Specialty Start Date End Date Greg Murdock MD [address] [place] [address] PCP - General 01/19/14 04/14/23 Greg Murdock MD [address] [place] [address] PCP - Insurance PCP 02/02/15 05/04/23 Ashley Howard MD [address] [address] PCP - General Internal Medicine 04/15/23 Vinny Parker PA-C [address] [place] [address] PCP - Attributed PCP - PCF [facility] 10/08/21 06/04/23 Ashley Howard MD [address] [place] [address] PCP - Insurance PCP 09/03/24 Ramón Real [address] [address] Community Health Worker Case Management 03/28/19 Tammy Soto, [address] [address] Complex Care Management Primary Care Based - [facility] Care Management 03/29/19 10/31/[address] [address] [facility] Clinical Advisor Behavioral Health 08/05/19 11/10/19 Ginny [address] [address] Complex Care Management Primary Care Based - [facility] Family Medicine 11/01/19 01/25/20 Belkis Londono (Inactive), RN [address] [place] [address] Complex Care Management Primary Care Based-RN 01/26/20 01/31/[address] [address] Complex Care Management Primary Care Based - [facility] Family Medicine 02/01/20 02/26/20 [address] [address] Complex Care Management Primary Care Based - [facility] Family Medicine 12/16/22 01/06/23 Ginny Alberto, [facility] [address] [facility] [place] [address] Complex Care Management Primary Care Based - [facility] Family Medicine 02/18/23 03/05/23 Ramón Real, MED ASST [address] [facility] [place] [address] Community Health Worker Case Management 04/13/23 documented as of this encounter
--- OUTSIDE RECORDS SUMMARY | 2024-11-19 10:04 | XMS_ITS | Encounter Summary ---
Author Organization [facility] iance Address [address] [place] [address] Care Team Providers Care Service Car Operator Name Role Phone Greg Murdock MD Primary Care Provider [phone] Greg Murdock MD Unavailable [phone] Ramón Real CITY CARRIER Unavailable [phone] Tammy Soto COMMERCIAL COLLECTIONS DRIVER Unavailable [phone] Linda Leblanc COMMERCIAL COLLECTIONS DRIVER Unavailable [phone] Ginny Alberto COMMERCIAL COLLECTIONS DRIVER Unavailable [phone] Belkis Londono (Inactive) RN Unavailable Ginny Alberto COMMERCIAL COLLECTIONS DRIVER Unavailable [phone] Ginny Alberto COMMERCIAL COLLECTIONS DRIVER Unavailable [phone] Ginny Alberto COMMERCIAL COLLECTIONS DRIVER Unavailable [phone] Ramón Real CITY CARRIER Unavailable [phone] Ashley Howard MD Primary Care Provider [phone] Vinny Parker PA-C Unavailable [phone] Ashley Howard MD Unavailable [phone] Reason for Visit * Reason Onset Date Comments Imm/Inj 03/13/2017 tdap Encounter Details Date Type Department Care Team (Late st Contact Info) Description 03/13/2017 Telephone [facility] Primary Care - [address], [address] [place] [address] Araceli Millan PA-C [address] [place] [phone] Imm/Inj (tdap) Social History Tobacco Use Types Packs/Day Years [...] documented as of this encounter Care Teams Service Car Operator Relationship Specialty Start Date End Date Greg Murdock MD [address] [place] [address] PCP - General 01/19/14 04/14/23 Greg Murdock MD [address] [place] [address] PCP - Insurance PCP 02/02/15 05/04/23 Ashley Howard MD [address] [address] PCP - General Internal Medicine 04/15/23 Vinny Parker PA-C [address] [place] [address] PCP - Attributed PCP - PCF [facility] 10/08/21 06/04/23 Ashley Howard MD [address] [address] PCP - Insurance PCP 09/03/24 Ramón Real, [address] [address] Community Health Worker Case Management 03/28/19 Tammy Soto, [address] [place] [address] Complex Care Management Primary Care Based - [facility] Care Management 03/29/19 10/31/19 Linda Leblanc, [address] [place] [place] [address] Intensive Clinical Advisor Behavioral Health 08/05/19 11/10/19 Ginny Alberto, [address] [place] [address] Complex Care Management Primary Care Based - [facility] Family Medicine 11/01/19 01/25/20 Belkis Londono (Inactive), RN [address] [place] [address] Complex Care Management Primary Care Based-RN 01/26/20 01/31/20 Ginny Alberto, [facility] [address] [place] [address] Complex Care Management Primary Care Based - [facility] Family Medicine 02/01/20 02/26/[address] [address] Complex Care Management Primary Care Based - [facility] Family Medicine 12/16/22 01/06/[address] [address] Complex Care Management Primary Care Based - [facility] Family Medicine 02/18/23 03/05/23 Ramón Real, CITY CARRIER [address] [place] [address] Community Health Worker Case Management 04/13/23 documented as of this encounter
--- OUTSIDE RECORDS SUMMARY | 2024-11-19 10:04 | XMS_ITS | Encounter Summary ---
Author Organization [facility] iance Address [address] [place] [address] Care Team Providers Care Rotor Winder Name Role Phone Greg Murdock MD Primary Care Provider [phone] Greg Murdock MD Unavailable [phone] Ginny Alberto COPYRIGHT EXPERT Unavailable [phone] Ginny Alberto COPYRIGHT EXPERT Unavailable [phone] Ramón Real Unavailable [phone] Ashley Howard MD Primary Care Provider [phone] Vinny Parker PA-C Unavailable [phone] Ashley Howard MD Unavailable [phone] Encounter Details Date Type Department Care Team (Late st Contact Info) Description 10/24/2020 ED Care Mgmt Encounter [facility] Case Management - [address] [place] [address] Hien Gordon RN Social History Tobacco Use [...] Orientation Straight 08/01/2023 7: 58 AM EST COVID-19 Exposure Response Date Recorded In the last month, have you been in contact with someone who was confirmed or suspected to have Coronavirus / COVID-19? No / Unsure 10/04/2020 1:19 PM EDT documented as of this encounter Functional Status [...] documented as of this encounter Care Teams Rotor Winder Relationship Specialty Start Date End Date Greg Murdock MD [address] [place] [address] PCP - General 01/19/14 04/14/23 Greg Murdock MD [address] [place] [address] PCP - Insurance PCP 02/02/15 05/04/23 Ashley Howard MD [address] [address] PCP - General Internal Medicine 04/15/23 Vinny Parker PA-C [address] [place] [address] PCP - Attributed PCP - PCF [facility] 10/08/21 06/04/23 Ashley Howard MD [address] [address] PCP - Insurance PCP 09/03/24 Ginny Alberto [address] [address] Complex Care Management Primary Care Based - [facility] Family Medicine 12/16/22 01/06/23 Ginny Alberto, [facility] [address] [facility] [place] [address] Complex Care Management Primary Care Based - [facility] Family Medicine 02/18/23 03/05/23 Ramón Real, WEIGHT LOSS CENTRE MANAGER [address] [facility] [place] [address] Community Health Worker Case Management 04/13/23 documented as of this encounter
--- OUTSIDE RECORDS SUMMARY | 2024-11-19 10:04 | XMS_ITS | Encounter Summary ---
Author Organization [employer] [facility] iance Address [address] [place] [address] Care Team Providers Care Retail Shift Manager Name Role Phone Greg Murdock MD Primary Care Provider [phone] Greg Murdock MD Unavailable [phone] Ramón Real CONSERVATION EDUCATOR Unavailable [phone] Charles, Tammy MELTER SUPERVISOR Unavailable [phone] Linda Leblanc MELTER SUPERVISOR Unavailable [phone] Ginny Alberto MELTER SUPERVISOR Unavailable [phone] Belkis Londono (Inactive) RN Unavailable Ginny Alberto MELTER SUPERVISOR Unavailable +[phone] Ginny Alberto MELTER SUPERVISOR Unavailable [phone] Ginny Alberto MELTER SUPERVISOR Unavailable [phone] Ramón Real CONSERVATION EDUCATOR Unavailable [phone] Ashley Howard MD Primary Care Provider [phone] Vinny Parker PA-C Unavailable [phone] Ashley Howard MD Unavailable [phone] Reason for Visit * Reason Onset Date Comments Refill Request 03/13/2014 amphetamine-dext roamphetamine (ADDERALL, 20MG,) 20 MG tablet, ALPRAZolam (XANAX) 1 MG tablet Encounter Details Date Type Department Care Team (Late st Contact Info) Description 03/13/2014 [facility] Primary Care - [facility] - Psychiatry [address] [place] [address] Keyon Roberts MD [address] [place] [address] Refill Request (amphetamine-dextroamp hetamine (ADDERALL, 20MG,) 20 MG tablet, ALPRAZolam (XANAX) 1 MG tablet) Social History Tobacco Use Types [...] as of this encounter Care Teams Retail Shift Manager Relationship Specialty Start Date End Date Greg Murdock MD [address] [place] [address] PCP - General 01/19/14 04/14/23 Greg Murdock MD [address] [place] [address] PCP - Insurance PCP 02/02/15 05/04/23 Ashley Howard MD [address] [address] PCP - General Internal Medicine 04/15/23 Vinny Parker, [facility] [address] [place] [address] PCP - Attributed PCP - PCF [facility] 10/08/21 06/04/23 Ashley Howard MD [address] [address] PCP - Insurance PCP 09/03/24 Ramón Real LSW [address] [place] [address] Community Health Worker Case Management 03/28/19 Tammy Soto LICSW [address] [facility] [place] [address] Complex Care Management Primary Care Based - MELTER SUPERVISOR/BILLET WORKER Care Management 03/29/19 10/31/19 Linda Leblanc, [facility] [address] [facility] [place] [address] Intensive Clinical Advisor Behavioral Health 08/05/19 11/10/19 Ginny Alberto, [facility] [address] [facility] [place] [address] Complex Care Management Primary Care Based - [facility] Family Medicine 11/01/19 01/25/20 Belkis Londono (Inactive), RN [address] [place] [address] Complex Care Management Primary Care Based-RN 01/26/20 01/31/20 Ginny Alberto, [address] [address] Complex Care Management Primary Care Based - [facility] Family Medicine 02/01/20 02/26/[address] [address] Complex Care Management Primary Care Based - [facility] Family Medicine 12/16/22 01/06/[address] [address] Complex Care Management Primary Care Based - [facility] Family Medicine 02/18/23 03/05/23 Ramón Real, CONSERVATION EDUCATOR [address] [place] [address] Community Health Worker Case Management 04/13/23 documented as of this encounter
--- OUTSIDE RECORDS SUMMARY | 2024-11-19 10:04 | XMS_ITS | Encounter Summary ---
Author Organization [employer] [facility] iance Address [address] [place] [address] Care Team Providers Care Consulting Actuary Name Role Phone Greg Murdock MD Primary Care Provider [phone] Greg Murdock MD Unavailable [phone] Ramón Real TRAFFIC RATE CLERK Unavailable [phone] Charles, Tammy OTOLARYNGOLOGIST Unavailable [phone] Linda Leblanc OTOLARYNGOLOGIST Unavailable [phone] Ginny Alberto OTOLARYNGOLOGIST Unavailable [phone] Belkis Londono (Inactive) RN Unavailable Ginny Alberto OTOLARYNGOLOGIST Unavailable [phone] Ginny Alberto OTOLARYNGOLOGIST Unavailable [phone] Ginny Alberto OTOLARYNGOLOGIST Unavailable [phone] Ramón Real TRAFFIC RATE CLERK Unavailable [phone] Ashley Howard MD Primary Care Provider [phone] Vinny Parker PA-C Unavailable [phone] Ashley Howard MD Unavailable [phone] Reason for Visit * Reason Onset Date Comments Refill Request 05/02/2014 ALPRAZolam (XANA X) 1 MG tablet, amphetamine-dextroamphetamine (ADDERALL, 20MG,) 20 MG tablet Encounter Details Date Type Department Care Team (Late st Contact Info) Description 05/02/2014 [facility] Primary Care - [facility] - Psychiatry [address] [place] [address] Keyon Roberts MD [address] [place] [address] Refill Request (ALPRAZolam (XANAX) 1 MG tablet, amphetamine-dextroamph etamine (ADDERALL, 20MG,) 20 MG tablet ) Social [...] documented as of this encounter Care Teams Consulting Actuary Relationship Specialty Start Date End Date Greg Murdock MD [address] [place] [address] PCP - General 01/19/14 04/14/23 Greg Murdock MD [address] [place] [address] PCP - Insurance PCP 02/02/15 05/04/23 Ashley Howard MD [address] [address] PCP - General Internal Medicine 04/15/23 Vinny Parker, KAIC [address] [place] [address] PCP - Attributed PCP - PCF [facility] 10/08/21 06/04/23 Ashley Howard MD [address] [address] PCP - Insurance PCP 09/03/24 Ramón Real LSW [address] [place] [address] Community Health Worker Case Management 03/28/19 Tammy Soto LICSW [address] [place] [address] Complex Care Management Primary Care Based - OTOLARYNGOLOGIST/ENGINEERING RECRUITER Care Management 03/29/19 10/31/19 Linda Leblanc, [facility] [address] [facility] [place] [address] Intensive Clinical Advisor Behavioral Health 08/05/19 11/10/19 Ginny Alberto, [facility] [address] [facility] [place] [address] Complex Care Management Primary Care Based - [facility] Family Medicine 11/01/19 01/25/20 Belkis Londono (Inactive), RN [address] [place] [address] Complex Care Management Primary Care Based-RN 01/26/20 01/31/20 Ginny Alberto, [address] [address] Complex Care Management Primary Care Based - [facility] Family Medicine 02/01/20 02/26/20 [address] [address] Complex Care Management Primary Care Based - [facility] Family Medicine 12/16/22 01/06/[address] [address] Complex Care Management Primary Care Based - [facility] Family Medicine 02/18/23 03/05/23 Ramón Real, TRAFFIC RATE CLERK [address] [place] [address] Community Health Worker Case Management 04/13/23 documented as of this encounter
--- OUTSIDE RECORDS SUMMARY | 2024-11-19 10:04 | XMS_ITS | Encounter Summary ---
Author Organization [facility] iance Address [address] [place] [address] Care Team Providers Care Operations Research Manager Name Role Phone Greg Murdock MD Primary Care Provider [phone] Greg Murdock MD Unavailable [phone] Ramón Real SHUTTLE VAN DRIVER Unavailable [phone] Charles, Tammy BLURB WRITER Unavailable [phone] Linda Leblanc BLURB WRITER Unavailable [phone] Ginny Alberto BLURB WRITER Unavailable [phone] Belkis Londono (Inactive) RN Unavailable Ginny Alberto BLURB WRITER Unavailable [phone] Ginny Alberto BLURB WRITER Unavailable [phone] Ginny Alberto BLURB WRITER Unavailable [phone] Ramón eRal SHUTTLE VAN DRIVER Unavailable [phone] Ashley Howard MD Primary Care Provider [phone] Vinny Parker PA-C Unavailable [phone] Ashley Howard MD Unavailable [phone] Reason for Visit * Reason Onset Date Comments Imm/Inj 12/25/2016 tdap Encounter Details Date Type Department Care Team (Late st Contact Info) Description 12/25/2016 Telephone [facility] Primary Care - [address] [address] Greg Murdock MD [address] [place] [address] Imm/Inj (tdap) Social History Tobacco Use Types [...] documented as of this encounter Care Teams Operations Research Manager Relationship Specialty Start Date End Date Greg Murdock MD [address] [place] [address] PCP - General 01/19/14 04/14/23 Greg Murdock MD [address] [place] [address] PCP - Insurance PCP 02/02/15 05/04/23 Ashley Howard MD [address] [address] PCP - General Internal Medicine 04/15/23 Vinny Parker PA-C [address] [place] [address] PCP - Attributed PCP - PCF [facility] 10/08/21 06/04/23 Ashley Howard MD [address] [address] PCP - Insurance PCP 09/03/24 Ramón Real SHUTTLE VAN DRIVER [address] [place] [address] Community Health Worker Case Management 03/28/19 Tammy Soto, [facility] [address] [facility] [place] [address] Complex Care Management Primary Care Based - [facility] Care Management 03/29/19 10/31/19 Linda Leblanc, [facility] [address] [place] [address] Intensive Clinical Advisor Behavioral Health 08/05/19 11/10/19 Ginny Alberto, [facility] [address] [place] [address] Complex Care Management Primary Care Based - [facility] Family Medicine 11/01/19 01/25/20 Belkis Londono (Inactive), RN [address] [place] [address] Complex Care Management Primary Care Based-RN 01/26/20 01/31/20 Ginny Alberto, [facility] [address] [place] [address] Complex Care Management Primary Care Based - [facility] Family Medicine 02/01/20 02/26/20 [facility] [address] [place] [address] Complex Care Management Primary Care Based - [facility] Medicine 12/16/22 01/06/[address] [address] Complex Care Management Primary Care Based - [facility] Family Medicine 02/18/23 03/05/23 Ramón Real, SHUTTLE VAN DRIVER [address] [facility] [place] [address] Community Health Worker Case Management 04/13/23 documented as of this encounter
--- OUTSIDE RECORDS SUMMARY | 2024-11-19 10:04 | XMS_ITS | Encounter Summary ---
Author Organization [employer] [facility] iance Address [address] [place] [address] Care Team Providers Care Berry Picker Name Role Phone Greg Murdock MD Primary Care Provider [phone] Greg Murdock MD Unavailable [phone] Ramón Real WELL DRILLER HELPER Unavailable [phone] Tammy Soto ANATOMIC PATHOLOGY MANAGER Unavailable [phone] Linda Leblanc ANATOMIC PATHOLOGY MANAGER Unavailable [phone] Ginny Alberto ANATOMIC PATHOLOGY MANAGER Unavailable [phone] Belkis Londono (Inactive) RN Unavailable Ginny Alberto ANATOMIC PATHOLOGY MANAGER Unavailable [phone] Ginny Alberto ANATOMIC PATHOLOGY MANAGER Unavailable [phone] Ginny Alberto ANATOMIC PATHOLOGY MANAGER Unavailable [phone] Ramón Real WELL DRILLER HELPER Unavailable [phone] Ashley Howard MD Primary Care Provider [phone] Vinny Parker PA-C Unavailable [phone] Ashley Howard MD Unavailable [phone] Reason for Visit * Reason Onset Date Comments Refill Request 05/09/2013 amphetamine-dext roamphetamine (ADDERALL) 20 MG tablet Encounter Details Date Type Department Care Team (Late st Contact Info) Description 05/09/2013 [facility] Primary Care - [facility] - Psychiatry [address] [place] [address] Keyon Roberts MD [address] [place] [address] Refill Request (amphetamine-dextroamp hetamine (ADDERALL) 20 MG tablet ) Social History Tobacco [...] documented as of this encounter Care Teams Berry Picker Relationship Specialty Start Date End Date Greg Murdock MD [address] [place] [address] PCP - General 01/19/14 04/14/23 Greg Murdock MD [address] [place] [address] PCP - Insurance PCP 02/02/15 05/04/23 Ashley Howard MD [address] [address] PCP - General Internal Medicine 04/15/23 Vinny Parker PA-C [address] [place] [address] PCP - Attributed PCP - PCF [facility] 10/08/21 06/04/23 Ashley Howard MD [address] [address] PCP - Insurance PCP 09/03/24 Ramón Real, WELL DRILLER HELPER [address] [place] [address] Community Health Worker Case Management 03/28/[address] [facility] [address] [facility] [place] [address] Complex Care Management Primary Care Based - ANATOMIC PATHOLOGY MANAGER/SPINDLE SANDER Care Management 03/29/19 10/31/19 Linda Leblanc, [facility] [address] [facility] [place] [address] Intensive Clinical Advisor Behavioral Health 08/05/19 11/10/19 Ginny Alberto, [facility] [address] [place] [address] Complex Care Management Primary Care Based - [facility] Family Medicine 11/01/19 01/25/20 Belkis Londono (Inactive), RN [address] [place] [address] Complex Care Management Primary Care Based-RN 01/26/20 01/31/[address] [facility] [address] [place] [address] Complex Care Management Primary Care Based - [facility] Family Medicine 02/01/20 02/26/[address] [address] Complex Care Management Primary Care Based - [facility] Family Medicine 12/16/22 01/06/[address] [address] Complex Care Management Primary Care Based - [facility] Family Medicine 02/18/23 03/05/23 Ramón Real, WELL DRILLER HELPER [address] [facility] [place] [address] Community Health Worker Case Management 04/13/23 documented as of this encounter
--- OUTSIDE RECORDS SUMMARY | 2024-11-19 10:04 | XMS_ITS | Encounter Summary ---
Author Organization [employer] [facility] iance Address [address] [place] [address] Care Team Providers Care Aerodynamic Consultant Name Role Phone Greg Murdock MD Primary Care Provider [phone] Greg Murdock MD Unavailable [phone] Ramón Real BOATWRIGHT Unavailable [phone] Tammy Soto FORGE HAND Unavailable [phone] Linda Leblanc FORGE HAND Unavailable [phone] Ginny Alberto FORGE HAND Unavailable [phone] Belkis Londono (Inactive) RN Unavailable Ginny Alberto FORGE HAND Unavailable [phone] Ginny Alberto FORGE HAND Unavailable [phone] Ginny Alberto FORGE HAND Unavailable [phone] Ramón Real BOATWRIGHT Unavailable [phone] Ashley Howard MD Primary Care Provider [phone] Vinny Parker PA-C Unavailable [phone] Ashley Howard MD Unavailable [phone] Reason for Visit * Reason Onset Date Comments Refill Request 03/15/2014 ALPRAZolam (XANA X) 1 MG tablet Encounter Details Date Type Department Care Team (Late st Contact Info) Description 03/15/2014 [facility] Primary Care - [facility] - Psychiatry [address] [place] [address] Keyon Roberts MD [address] [place] [address] Refill Request (ALPRAZolam (XANAX) 1 MG tablet) Social History Tobacco [...] documented as of this encounter Care Teams Aerodynamic Consultant Relationship Specialty Start Date End Date Greg Murdock MD [address] [place] [address] PCP - General 01/19/14 04/14/23 Greg Murdock MD [address] [place] [address] PCP - Insurance PCP 02/02/15 05/04/23 Ashley Howard MD [address] [address] PCP - General Internal Medicine 04/15/23 Vinny Parker, KAIC [address] [place] [address] PCP - Attributed PCP - PCF [facility] 10/08/21 06/04/23 Ashley Hwoard MD [address] [address] PCP - Insurance PCP 09/03/24 Ramón Real LSW [address] [place] [phone] Community Health Worker Case Management 03/28/19 Tammy Soto [address] [place] [address] Complex Care Management Primary Care Based - FORGE HAND/AUTO REBUILDER Care Management 03/29/19 10/31/19 Linda Leblanc, FORGE HAND [address] [facility] [place] [address] Intensive Clinical Advisor Behavioral Health 08/05/19 11/10/19 Ginny Alberto, [facility] [address] [facility] [place] [address] Complex Care Management Primary Care Based - [facility] Family Medicine 11/01/19 01/25/20 Belkis Londono (Inactive), RN [address] [place] [address] Complex Care Management Primary Care Based-RN 01/26/20 01/31/20 Ginny Alberto, [facility] [address] [place] [address] Complex Care Management Primary Care Based - [facility] Family Medicine 02/01/20 02/26/[address] [address] Complex Care Management Primary Care Based - [facility] Family Medicine 12/16/22 01/06/[address] [address] Complex Care Management Primary Care Based - [facility] Family Medicine 02/18/23 03/05/23 Ramón Real, BOATWRIGHT [address] [place] [address] Community Health Worker Case Management 04/13/23 documented as of this encounter
[2024-11-19 10:37] LABS: MANUAL DIFF FLAG NO
[2024-11-19 10:46] LABS: Basophils Percent Auto 0.3 % (0-2); Eosinophils Absolute Auto 0.2 X10*3/uL (0.0-0.4); Eosinophils Percent Auto 1.2 % (0-4); Hematocrit 35.9 % (37.0-47.0); Hemoglobin 11.9 g/dl (12.0-16.0); Imm Gran Abs Auto 0.04 X10*3/uL (0.00-0.03); Imm Gran Pct Auto 0.3 % (0.0-0.4); Lymphocytes Absolute Auto 0.6 X10*3/uL (1.2-4.9); Lymphocytes Percent Auto 4.7 % (20-40); Mean Corpuscular HGB Conc 33.1 g/dl (31.0-35.0); Mean Corpuscular Hemoglobin 27.9 pg (27.0-33.0); Mean Corpuscular Volume 84.1 fL (80.0-98.0); Mean Platelet Volume 9.8 fL (9.4-12.3); Monocytes Absolute Auto 0.7 X10*3/uL (0.1-1.2); Monocytes Percent Auto 5.2 % (2-11); Neutrophils Absolute Auto 11.2 x10*3/uL (2.0-8.3); Neutrophils Percent Auto 88.3 % (45-73); Platelet Count 256 X10*3/uL (160-400); Red Blood Count 4.27 X10*6/uL (4.20-5.50); Red Cell Distribution Width 13.1 % (11.0-16.0); White Blood Count 12.6 X10*3/uL (4.8-10.8)
[2024-11-19 10:54] LABS: Alanine Aminotransferase 11 U/L (0-31); Albumin Level 3.4 g/dL (3.5-5.0); Alkaline Phosphatase 84 U/L (39-117); Anion Gap 10 (12-20); Aspartate Amino Transferase 17 U/L (5-31); Bilirubin Total 0.3 mg/dL (0.0-1.0); Blood Urea Nitrogen 14 mg/dL (9-16); C Reactive Protein 12.69 mg/dL (< or = 0.50); Calcium 9.1 mg/dL (8.4-10.2); Carbon Dioxide 24 mmol/L (22-29); Chloride 107 mmol/L (96-108); Estimated Glomerular Filt Rate > 60; Glucose Random 107 mg/dL (60-115); Magnesium 2.2 mg/dL (1.6-2.6); Potassium 4.2 mmol/L (3.3-5.1); Sodium 137 mmol/L (135-145); Total Protein 7.5 g/dL (6.5-8.0)
--- NOTE | 2024-11-19 11:27 | PC.NURSE ---
Pt BIBA from [facility], [facility], for Left lower extremity redness/warmth. Visible redness/edema to left leg and ankle, warm to touch. CMS intact- +pedal pulses, strong, . Pt denies SI/HI/AH/VH, 1:1 sitter at bedside for safety. Pt arrived to ED somnolent, arousable to verbal stimuli, pupils non-reactive, speech quiet/mumbles, respirations even and unlabored, no increased wob/sob noted, maintaining O2 sat >92%, maintaining own airway sitting upright in bed, no signs of aspiration, nsr on radiographer cardiac catheterization, HR-70s, appears in no distress. Pt difficult stick, unable to obtain IV access. 20g ultrasound IV placed R upper bicep by Malinda SCALES- patent, asymptomatic. Labs obtained and sent, call lazo within reach, all needs met at this time.
[2024-11-19] MEDS: Acetaminophen Supp 650 MG SUPP.RECT PR (11:58)
[2024-11-19] MEDS: vancomycin HCL 1,500 MG in 0.9 % Sodium Chloride 500 ML 333.33 MG IV (12:01)
[2024-11-19 12:33] LABS: Ammonia 55 umol/L (13-55)
--- NOTE | 2024-11-19 12:46 | PC.NURSE ---
Pt became hypotensive- 88/55 manual BP, WEDGER MACHINE Huyen aware. Verbal order to start LR fluids- refer to MAR for medications. Pt BP cycling q5min to monitor, remains hypotensive 80s/50s. Additional 20g ultrasound IV placed left upper bicep by LOYDA Petty. Fluids/abx hung per MAR. Pt straight cath to obtain urine sample, obtained and sent to lab, 700 output- documented in I&Os. Pt remains somnolent, non responsive to verbal stimuli only painful. Maintaining O2 sat >92% on RA, sitting upright in bed to maintain airway and prevent aspiration, respirations even and unlabored, no increased wob/sob.
[2024-11-19 12:47] LABS: Erythrocyte Sedimentation Rate 56 MM/HR (0-20)
[2024-11-19 12:52] LABS: Appearance Urine Clear; Color Urine Yellow; Glucose Urine UA Negative (Negative); Leukocyte Esterase Urine Small (1+) (Negative); Nitrite Urine Negative (Negative); Specific Gravity - Urine 1.015 (1.005-1.025); UMIC TRIGGER UACC YES; Urine Blood Small (1+) (Negative); Urine Ketones Negative (Negative); Urine Protein Negative (Neg-Trace)
[2024-11-19 13:01] LABS: Amphetamine Screen Urine Not Detected (Not Detect); Barbiturates, Urine Not Detected (Not Detect); Benzodiazepines Screen Urine POSITIVE (Not Detect); Buprenorphine Scr Not Detected (Not Detect); Cannabinoid Screen Urine Not Detected (Not Detect); Cocaine Screen Urine Not Detected (Not Detect); Fentanyl, urine Not Detected (Not Detect); Methadone Screen, Urine Positive (Not Detect); Opiate Screen Urine Not Detected (Not Detect); Oxycodone Screen Urine Not Detected (Not Detect); Phencyclidine Screen Urine Not Detected (Not Detect)
--- NOTE | 2024-11-19 13:03 | ECG_ITS ---
Test Reason : ENCEPHALOPATHY Blood Pressure : */* mmHG Vent. Rate : 71 BPM Atrial Rate : 71 BPM P-R Int : 156 ms QRS Dur : 78 ms QT Int : 524 ms P-R-T Axes : 47 27 30 degrees QTcB Int : 569 ms Normal sinus rhythm Nonspecific T wave abnormality Abnormal ECG No previous ECGs available Referred By: Pérez Curiel Electronically Signed By: BLANE YAÑEZ MD
[2024-11-19 13:04] LABS: Bacteria Urine Trace (None Seen); Hyaline Casts Urine 0-2 /LPF (0-2); Squamous Epithelial Cell Urine 0-2 /HPF (0-2); UACC Culture Trigger YES
[2024-11-19 13:05] LABS: HCG Quantitative < 2 mIU/mL
[2024-11-19] MEDS: Piperacillin Sodium/Tazobactam 3.375 GM in 0.9 % Sodium Chloride 50 ML IV ×2 (13:10→21:33)
[2024-11-19] MEDS: Norepinephrine Bitartrate/D5W 8 MG/250 ML PLAST..BAG 6.04 MG IVCONT (13:40)
[2024-11-19] MEDS: levETIRAcetam in NaCl (iso-os) 1,500 MG/100 ML PIGGYBACK 400 MG IV (13:40)
--- NOTE | 2024-11-19 13:40 | PC.NURSE ---
Levophed started @1340 d/t BPs 80s/50s- refer to MAR for starting dose/BPs. Pt remains responsive to painful stimuli only, BP cycling q5min to monitor pressures. Maintaining own airway upright in bed.
[2024-11-19] MEDS: Clindamycin Phosphate/D5W 900 MG/50 ML PIGGYBACK 50 MG IV (14:14)
--- NOTE | 2024-11-19 14:26 | PC.NURSE ---
Pt taken to CT scan
--- NOTE | 2024-11-19 14:55 | PC.NURSE ---
IV Fluids slow to infuse d/t IV access positional. Pressure bags applied to fluids. CORRECTIONS IDENTIFICATION TECHNICIAN Huyen aware.
--- NOTE | 2024-11-19 14:57 | PC.NURSE ---
Levophed restarted upon patient's return from CT d/t BP.
--- NOTE | 2024-11-19 15:27 | PC.NURSE ---
Pt Levophed paused @ 1510 d/t BP 140s/70s- YARD SWITCHER Huyen aware. Pt BPs increase to 140s/70s while on 0.05mcg/kg/min, verbal order per YARD SWITCHER Huyen to titrate down to 0.03mcg/kg/min
[2024-11-19] MEDS: iohexoL 350 MG/ML 100 ML INFUS..BTL IV (15:37)
[2024-11-19 15:54] LABS: Troponin-I High Sensitivity < 2.7 ng/L (<3.5-17.0)
--- NOTE | 2024-11-19 16:38 | PC.NURSE ---
Bladder scan done d/t pt not voiding, bladder scan showing >680, sepsis fluids infused. BPs entered into worklist. Pt remains on 0.03mcg/kg/min- maintaining MAP >65. BPs 110s/70s. CASHIER OFFICE Huyen aware of Bladder scan.
[2024-11-19 17:16] LABS: Venous Blood Gas Refer to POC result
[2024-11-19 17:17] LABS: VBG HCO3 23 mmol/L (22-26); VBG pCO2 37 mmHg; VBG pO2 81 mmHg
--- NOTE | 2024-11-19 18:13 | HE.PHANOTE ---
[facility]
--- NOTE | 2024-11-19 18:19 | PC.NURSE ---
Pt retaining urine, MD Camejo made aware. Per MD- straight cath again, will place felix if pt still retaining after second straight cath done. 800mls of urine emptied from pt bladder and documented in I&O section of worklist.
--- NOTE | 2024-11-19 18:21 | PC.NURSE ---
Pt remains on levophed @ 0.03mcg/kg/min- BPs 110s/80s, MAP >65. Pt remains lethargic/only responsive to painful stimuli. Maintaining O2 sat on RA >92%, no increased wob/sob, appears in no distress. Repositioned to back, call lazo within reach, all needs met at this time.
--- NOTE | 2024-11-19 18:29 | PHA.MEDREC ---
Addendum entered by Eddi Womack RPh 11/19/24 18:43: Reviewed by [facility] Original Note: Pharmacy Consult ? Medication Reconciliation Pharmacy has completed the [facility].
[2024-11-19] MEDS: Heparin Sodium,Porcine 5,000 UNIT/ML VIAL 5000 UNIT SUBCUT (18:46)
--- NOTE | 2024-11-19 19:19 | PM.CCHP ---
History of Present Illness Date of Service: 11/19/24 Attending physician on admission: José Miguel Camejo Chief Complaint: AMS Ms Longoria? Is a 44-year-old is a 44-year-old female with history of asthma, seizures, fibromyalgia, GERD, Bipolar II disorder, PTSD, OUD on methadone who was sent from [facility] for evaluation of infection to the lower left leg at the site of a prior skin graft /surgery. On arrival to the ER, blood pressure was 115/69 heart rate 89, temp 99.6?. O2 sat 100% on room air. Laboratory data significant for WBC 12.6, C-reactive protein 12.69. ? UA showed 1+ leuks,? urine drug screen positive for methadone, benzos both of which are prescribed. Imaging: XR tibia fibula showed no periostitis or erosion. CT lower leg LT: no evidence of necrotizing fasciitis, soft tissue gas or drainable abscess. ED course: while in the emergency room the patient was lethargic but maintaining airway /respirations.? She became hypotensive and was given fluid bolus.? She was started on Levophed.? She received a total of 1932 mL LR per sepsis protocol, vancomycin 1500 mg, clindamycin 300 mg, Zosyn 3.375 g, Keppra 1500 mg, acetaminophen 650 mg. Review of Systems Constitutional: Constitutional: Reports as per HPI Eyes: Eyes: Denies change in vision ENT: Reports Normal hearing present, Denies nasal congestion and Denies sore throat Cardiovascular: Cardiovascular: Denies chest pain and Denies dyspnea Respiratory: Respiratory: Denies dyspnea Gastrointestinal: Gastrointestinal: Denies abdominal pain, Denies diarrhea, Denies nausea and Denies vomiting Genitourinary: Genitourinary: Denies urinary hesitancy and Denies urinary urgency Musculoskeletal: Musculoskeletal: Denies myalgias Integumentary/Breasts: Skin/Breast: Reports skin swelling (LLE) Neurologic: Reports Normal hearing present Psychiatric: Psychiatric: Reports as per HPI PMF Social History Social History Household Members: None Housing: Homeless Do you presently have visiting nurse or other home services: No Unable to assess alcohol history related to: Unable to respond Patient Tobacco Use Status: Current everyday Tobacco user Tobacco use type: Cigarette Cigarette Packs Per Day: 1.5 Cigarettes Per Day: 30.0 Smoked in Last 30 Days: Yes Patient Interested in Nicotine Replacement: Yes Patient Given Instructions on How to Stop Smoking: No (declined) Use of substances other than those prescribed or required for medical reasons: Unknown Have you been hit, kicked, punched, or otherwise hurt by someone within the past year? If so, by whom?: No Do you feel safe in your current relationship?: Yes Is there a partner from a previous relationship who is making you feel unsafe now?: No Are you made to feel afraid or neglected: No [facility] Practices: Sikhism Advance Directives: No Advance Directives Information Provided: No Do you have a plan to hurt others: No Plan Recently lost weight without trying: Unsure Eating poorly because of decreased appetite: No Nutrition Risks: On aspiration precautions Patient : No : No Poor oral hygiene: No Meds Allergies Allergy/AdvReac Type Severity Reaction Status Date / Time lamotrigine [From Lamictal] Allergy Unknown Verified 11/19/24 09:25 Active Medications: Current Medications Heparin Sodium (Porcine) (Heparin Sodium,Porcine 5,000 Unit/Ml Vial) 5,000 unit SUBCUT Q8H [facility] Last Admin: 11/19/24 18:46 Dose: 5,000 unit Norepinephrine Bitartrate (Levophed) 8 mg in 250 mls @ 0 mls/hr IVCONT .Q0M ROMERO; Protocol Last Titration: 11/19/24 18:24 Dose: 0.03 mcg/kg/min, 3.62 mls/hr Home Medications ?Medication ?Instructions ?Recorded ?Confirmed ?Last Taken ?Type acetaminophen 325 mg tablet 650 mg PO Q4H PRN Pain 11/19/24 11/19/24 11/19/24 History (Tylenol) 650 mg aluminum-mag hydroxide-simethicone 30 ml PO QID PRN gi upset 11/19/24 11/19/24 Unknown History 200 mg-200 mg-20 mg/5 mL oral susp baclofen 10 mg tablet 10 mg PO TID 11/19/24 11/19/24 11/19/24 History benzocaine 6 mg-menthol 10 mg 1 tenzin mucous membrane Q2H PRN Sore 11/19/24 11/19/24 Unknown History lozenges Throat benztropine 1 mg tablet 1 mg PO BID 11/19/24 11/19/24 11/19/24 History bupropion HCl 150 mg tablet,12 hr 150 mg PO DAILY 11/19/24 11/19/24 11/19/24 History sustained-release calcium carbonate 500 mg PO Q4H PRN Heartburn 11/19/24 11/19/24 Unknown History clonidine HCl 0.1 mg tablet 0.1 mg PO DAILY PRN Anxiety - 3rd 11/19/24 11/19/24 Unknown History line diazepam 2 mg tablet 2 mg PO TID PRN Anxiety - 2nd linw 11/19/24 11/19/24 11/19/24 History docusate sodium 100 mg capsule 100 mg PO BID PRN Constipation- 11/19/24 11/19/24 Unknown History 1st line guaifenesin 600 mg tablet, 1,200 mg PO Q12H PRN Cough 11/19/24 11/19/24 Unknown History extended release 12 hr haloperidol 10 mg tablet 10 mg PO BID 11/19/24 11/19/24 11/19/24 History hydroxyzine pamoate 50 mg capsule 50 mg PO Q4H PRN moderate to 11/19/24 11/19/24 Unknown History severe anxiety ibuprofen 400 mg tablet 400 mg PO Q8H PRN Pain 11/19/24 11/19/24 Unknown History loperamide 2 mg tablet 2 mg PO Q4H PRN Diarrhea 11/19/24 11/19/24 Unknown History magnesium hydroxide 400 mg/5 mL 30 ml PO DAILY PRN Constipation- 11/19/24 11/19/24 Unknown History oral suspension 3rd line melatonin 3 mg tablet 3 mg PO BEDTIME PRN Insomnia 11/19/24 11/19/24 Unknown History methadone 10 mg/mL oral 125 mg PO DAILY 11/19/24 11/19/24 11/19/24 08:44 History concentrate (Methadone Intensol) mirtazapine 15 mg tablet 15 mg PO BEDTIME 11/19/24 11/19/24 Unknown History nicotine (polacrilex) 2 mg gum 2 mg buccal Q2H PRN Nicotine 11/19/24 11/19/24 Unknown History Cravings nicotine 21 mg/24 hr daily 1 patch transdermal DAILY Nicotine 11/19/24 11/19/24 Unknown History transdermal patch Cravings ondansetron 4 mg disintegrating 4 mg PO Q6H PRN Nausea And Vomiting 11/19/24 11/19/24 Unknown History tablet pregabalin 150 mg capsule 150 mg PO BID 11/19/24 11/19/24 1 Day Ago History ~11/18/24 quetiapine 300 mg tablet 300 mg PO BEDTIME 11/19/24 11/19/24 11/19/24 History quetiapine 50 mg tablet 50 mg PO Q6H PRN Agitation 11/19/24 11/19/24 Unknown History sennosides 8.6 mg tablet (senna) 17.2 mg PO DAILY PRN Constipation- 11/19/24 11/19/24 Unknown History 2nd line topiramate 50 mg tablet 50 mg PO BID 11/19/24 11/19/24 11/19/24 History Physical Exam Vital Signs: Vital Signs: Last Vital Signs Temp 98.9 F 11/19/24 17:00 Pulse 60 11/19/24 19:05 Resp 12 11/19/24 19:05 BP 124/74 11/19/24 19:05 Pulse Ox 100 11/19/24 19:05 O2 Del Method Room Air 11/19/24 19:05 BMI result Body Mass Index 26.0 Const: General: no acute distress and alert Orientation/consciousness: patient oriented x3 (answering appropriately.) HEENT: Head: Yes normocephalic and Yes atraumatic General nose exam: Normal external nose present (Nares patent, septum midline, sinuses nontender bilaterally.) Mouth: Normal oral and palatal mucosa present (No thrush, tongue in midline, mucosa moist.) Throat: Yes other (No erythema, no exudate.) Neck: Neck: Yes supple (no thyromegaly, trachea midline.) Carotids: normal carotid upstroke Resp: Auscultation: clear to auscultation bilaterally (normal work of breathing, no accessory muscle use) Cardio: Jugular venous distension: no JVD Rate: regular rate Rhythm: regular rhythm Heart sounds: no gallops, no murmurs and no rubs Peripheral pulses: Peripheral pulses 2+ throughout GI: Palpation (GI): Soft to palpation (nondistended.) and nontender Neuro: General: patient oriented x3 (answering appropriately.) Cranial nerves: Yes Normal hearing present Extrem: General: Yes full ROM Left lower extremity: lower leg Details: erythema, localized swelling and warmth Psych: Speech and movement: Restless speech present Affect: Animated affect present Attitude: cooperative Thought content: Normal thought content present Results Labs 11/19/24 10:31 11/19/24 10:31 Labs: Laboratory Results - last 24 hr 11/19/24 11/19/24 11/19/24 10:31 12:20 12:36 MCV 84.1 MCH 27.9 MCHC 33.1 RDW 13.1 Plt Count 256 MPV 9.8 Immature Gran % (Auto) 0.3 Neut % (Auto) 88.3 H Lymph % (Auto) 4.7 L [place] % (Auto) 5.2 Eos % (Auto) 1.2 Baso % (Auto) 0.3 Lymph # (Auto) 0.6 L [place] # (Auto) 0.7 Eos # (Auto) 0.2 Baso # (Auto) 0.0 Abs Immat Gran (auto) 0.04 H Absolute Neuts (auto) 11.2 H Absolute Nucleated RBC 0.000 Nucleated RBC % (auto) 0.0 ESR 56 H VBG pH VBG pCO2 VBG pO2 VBG HCO3 VBG O2 Saturation VBG Base Excess Anion Gap 10 L Estim Creat Clear Calc 78.0 Estimated GFR > 60 Random Glucose 107 Lactic Acid 1.0 Calcium 9.1 Magnesium 2.2 Total Bilirubin 0.3 AST 17 ALT 11 Alkaline Phosphatase 84 Ammonia 55 C-Reactive Protein 12.69 H Total Protein 7.5 Albumin 3.4 L Beta HCG, Quant < 2 Urine Color Yellow Urine Appearance Clear Urine pH 6.0 Ur Specific [place] 1.015 Urine Protein Negative Urine Glucose (UA) Negative Urine Ketones Negative Urine Blood Small (1+) H Urine Nitrite Negative Ur Leukocyte Esterase Small (1+) H Urine RBC 3-5 H Urine WBC 6-10 H Ur Squamous Epith Cells 0-2 Urine Bacteria Trace Hyaline Casts 0-2 Urine Opiates Screen Not Detected Ur Buprenorphine Scrn Not Detected Ur Oxycodone Screen Not Detected Urine Methadone Screen Positive H Urine Fentanyl Screen Not Detected Ur Barbiturates Screen Not Detected Ur Phencyclidine Scrn Not Detected Ur Amphetamines Screen Not Detected U Benzodiazepines Scrn POSITIVE H Urine Cocaine Screen Not Detected U Marijuana (THC) Screen Not Detected 11/19/24 17:12 MCV MCH MCHC RDW Plt Count MPV Immature Gran % (Auto) Neut % (Auto) Lymph % (Auto) [place] % (Auto) Eos % (Auto) Baso % (Auto) Lymph # (Auto) [place] # (Auto) Eos # (Auto) Baso # (Auto) Abs Immat Gran (auto) Absolute Neuts (auto) Absolute Nucleated RBC Nucleated RBC % (auto) ESR VBG pH 7.40 VBG pCO2 37 VBG pO2 81 VBG HCO3 23 VBG O2 Saturation 96.0 VBG Base Excess -1.0 Anion Gap Estim Creat Clear Calc Estimated GFR Random Glucose Lactic Acid Calcium Magnesium Total Bilirubin AST ALT Alkaline Phosphatase Ammonia C-Reactive Protein Total Protein Albumin Beta HCG, Quant Urine Color Urine Appearance Urine pH Ur Specific [place] Urine Protein Urine Glucose (UA) Urine Ketones Urine Blood Urine Nitrite Ur Leukocyte Esterase Urine RBC Urine WBC Ur Squamous Epith Cells Urine Bacteria Hyaline Casts Urine Opiates Screen Ur Buprenorphine Scrn Ur Oxycodone Screen Urine Methadone Screen Urine Fentanyl Screen Ur Barbiturates Screen Ur Phencyclidine Scrn Ur Amphetamines Screen U Benzodiazepines Scrn Urine Cocaine Screen U Marijuana (THC) Screen Assessment and Plan (1) Sepsis: Qualifiers: Sepsis type: sepsis due to unspecified organism Sepsis acute organ dysfunction status: unspecified Qualified Code(s): A41.9 - Sepsis, unspecified organism Status: Acute (2) Altered mental status: Qualifiers: Altered mental status type: unspecified Qualified Code(s): R41.82 - Altered mental status, unspecified Status: Acute (3) Cellulitis: Qualifiers: Site of cellulitis: extremity Site of cellulitis of extremity: lower extremity Laterality: left Qualified Code(s): L03.116 - Cellulitis of left lower limb Status: Acute Plan 44-year-old is a 44-year-old female with history of asthma, seizures, fibromyalgia, GERD, Bipolar II disorder, PTSD, OUD admitted with sepsis likely d/t left lower leg cellulitis. Neuro: Lethargy, AMS Cardiac: Sepsis likely due to cellulitis. Patient has hypotension requiring pressor support. ? Titrate off as tolerated. Pulmonary: No acute issues. Renal:? no acute issues. Endo: ? No acute issues. GI:? ? No acute issues. ID:? Evidence of sepsis. Volume resuscitated with 30 mL/kg crystalloids in ED.? Zosyn, Vanco in ED. Add valacyclovir. Blood/urine cultures pending. Heme/Onc: no acute issues. Psych: Underlying bipolar, PTSD, or OUD.? Prophylaxis:Heparin, Pneumatic boots Diet:? NPO Total time managing care of this patient today: 60 minutes.
[2024-11-19] MEDS: Nicotine 21 MG PATCH.TD24 TRANSDERMA (20:33)
[2024-11-19] MEDS: Acetaminophen 1,000 MG/100 ML PIGGYBACK 400 MG IV (20:33)
[2024-11-19] MEDS: valACYclovir HCL 1,000 MG TABLET 1000 MG PO (21:47)
--- NOTE | 2024-11-19 22:15 | PC.NURSE ---
LLE, present on admission
[2024-11-19] MEDS: Ibuprofen 600 MG TABLET PO (23:19)
[2024-11-19] MEDS: vancomycin HCL 750 MG in 0.9 % Sodium Chloride 250 ML 265 MG IV (23:19)
[2024-11-20] VITALS (10 sets, daily range): BP systolic 94–113; BP diastolic 60–75; PULSE 66–80; RESP 12–18; TEMP 36.1–37.3; O2SAT 96–100; BMI 26.0
--- NOTE | 2024-11-20 | ECG_ITS ---
Test Reason : recheck QTc Blood Pressure : */* mmHG Vent. Rate : 76 BPM Atrial Rate : 76 BPM P-R Int : 146 ms QRS Dur : 84 ms QT Int : 322 ms P-R-T Axes : 13 0 11 degrees QTcB Int : 362 ms Normal sinus rhythm Possible Anterior infarct , age undetermined Abnormal ECG When compared with ECG of 19-Nov-2024 13:22, Nonspecific T wave abnormality, worse in Lateral leads QT has shortened Referred By: Fletcher Tavarez Electronically Signed By: Gurpreet Barnett
[2024-11-20] MEDS: Pregabalin 150 MG CAPSULE PO ×3 (01:51→20:22)
[2024-11-20] MEDS: Mirtazapine 15 MG TABLET PO ×2 (01:51→20:22)
[2024-11-20] MEDS: Topiramate 25 MG TABLET 50 MG PO ×3 (01:51→20:22)
[2024-11-20] MEDS: QUEtiapine Fumarate 50 MG TABLET PO (01:51)
[2024-11-20] MEDS: Heparin Sodium,Porcine 5,000 UNIT/ML VIAL 5000 UNIT SUBCUT ×2 (01:52→09:54)
[2024-11-20] MEDS: Piperacillin Sodium/Tazobactam 3.375 GM in 0.9 % Sodium Chloride 50 ML IV ×4 (03:59→20:23)
[2024-11-20] MEDS: traMADoL HCL 50 MG TABLET PO (04:32)
--- NOTE | 2024-11-20 06:52 | PC.NURSE ---
This patient was admitted to the ICU from the ED at 19:23 for LLE cellulitis. Photos from admit were uploaded in skin note (see photos). The patient arrived drowsy though appropriately arousable to voice, only oriented to self and year, vague when answering some assessment questions. Reoriented. The pt was emotional and resistive to care, able to calm with active listening and reassurance however, the pt became impulsive and was attempting to get OOB despite education and reinforcement on safety measures including bed alarm and call lazo use while staff were sitting just outside the room. Of note, this pt also reported to this handbook writer a fall ?about a week ago?, but was unable to elaborate on the circumstances. An in-room camera was placed, as well as a 1:1 sitter as the patient comes from [facility] where she was for SI per review of transferring documents from the facility. Pt denies SI/HI for this handbook writer on assessment.? Patient arrived on 0.03mcg/kg/hr of levophed, titrated off in the evening per MAR with MAP maintained >65. Pt denies chest pain or sob. Breathing is even and unlabored without distress. Pt was initially NPO for reported AMS w/ aspiration precautions after requiring sternal rubs to arouse in the ED. Bedside nursing swallow eval was done per AMBULATORY CARE NURSE request, which this pt passed without issue. Sedating home meds were held per AMBULATORY CARE NURSE Harsha. Pt c/o pain in LLE which she was medicated with IV tylenol, ice packs, and motrin. Pt was observed to be sleeping in bed after motrin and ice, woken up for transfer due to change in level of care with med-tele orders placed.? Handoff report was called at 00:25 to the RN receiving this patient on s4. Patient was transported by this handbook writer in stable condition at 00:45 to s4. Pt?s belongings remain locked in the ED [facility] for safety. RN assuming care made aware. ? Please see admission assessments, tasks, and MAR for full details.
[2024-11-20 06:59] LABS: Venous Blood Gas Refer to POC result
[2024-11-20 07:00] LABS: MANUAL DIFF FLAG NO
[2024-11-20 07:00] LABS: VBG HCO3 24 mmol/L (22-26); VBG pCO2 32 mmHg; VBG pH 7.49 (7.32-7.43); VBG pO2 102 mmHg
[2024-11-20 07:12] LABS: Basophils Percent Auto 0.6 % (0-2); Eosinophils Absolute Auto 0.4 X10*3/uL (0.0-0.4); Eosinophils Percent Auto 8.1 % (0-4); Hematocrit 29.2 % (37.0-47.0); Imm Gran Abs Auto 0.01 X10*3/uL (0.00-0.03); Imm Gran Pct Auto 0.2 % (0.0-0.4); Lymphocytes Absolute Auto 1.3 X10*3/uL (1.2-4.9); Lymphocytes Percent Auto 25.2 % (20-40); Mean Corpuscular HGB Conc 34.2 g/dl (31.0-35.0); Mean Corpuscular Hemoglobin 28.7 pg (27.0-33.0); Mean Corpuscular Volume 83.9 fL (80.0-98.0); Mean Platelet Volume 9.9 fL (9.4-12.3); Monocytes Absolute Auto 0.5 X10*3/uL (0.1-1.2); Monocytes Percent Auto 9.9 % (2-11); Neutrophils Absolute Auto 2.8 x10*3/uL (2.0-8.3); Platelet Count 223 X10*3/uL (160-400); Red Blood Count 3.48 X10*6/uL (4.20-5.50); Red Cell Distribution Width 13.1 % (11.0-16.0); White Blood Count 5.1 X10*3/uL (4.8-10.8)
[2024-11-20 07:24] LABS: Alanine Aminotransferase 8 U/L (0-31); Albumin Level 2.7 g/dL (3.5-5.0); Alkaline Phosphatase 77 U/L (39-117); Anion Gap 9 (12-20); Aspartate Amino Transferase 16 U/L (5-31); Bilirubin Total 0.3 mg/dL (0.0-1.0); Blood Urea Nitrogen 11 mg/dL (9-16); Calcium 8.4 mg/dL (8.4-10.2); Carbon Dioxide 23 mmol/L (22-29); Chloride 112 mmol/L (96-108); Creatinine Clr Calc Pharmacy 91.7; Estimated Glomerular Filt Rate > 60; Glucose Random 87 mg/dL (60-115); Magnesium 2.1 mg/dL (1.6-2.6); Phosphorus 3.4 mg/dL (2.7-4.5); Potassium 3.5 mmol/L (3.3-5.1); Sodium 140 mmol/L (135-145)
[2024-11-20] MEDS: Nicotine 21 MG PATCH.TD24 TRANSDERMA (09:54)
[2024-11-20] MEDS: buPROPion HCl XL 150 MG TAB.ER.24H PO (09:54)
[2024-11-20] MEDS: HaloperidoL 5 MG TABLET 10 MG PO ×2 (09:57→20:22)
[2024-11-20] MEDS: Baclofen 10 MG TABLET PO ×3 (09:57→20:22)
[2024-11-20] MEDS: valACYclovir HCL 1,000 MG TABLET 1000 MG PO ×2 (09:57→20:22)
[2024-11-20] MEDS: methADONE HCl 20 MG/2 ML ORAL.CONC 125 MG PO (09:57)
[2024-11-20] MEDS: Benztropine Mesylate 1 MG TABLET PO ×2 (09:57→20:22)
[2024-11-20] MEDS: diazePAM 2 MG TABLET PO ×2 (10:03→20:22)
[2024-11-20 10:18] LABS: Vancomycin Random 13.9 mcg/mL (15-20)
[2024-11-20] MEDS: vancomycin HCL 750 MG in 0.9 % Sodium Chloride 250 ML 265 MG IV ×2 (11:31→23:34)
--- NOTE | 2024-11-20 12:18 | HO.PM.IMPN ---
Subjective Subjective Date of Service: 11/20/24 Interval History: stepped down from ICU overnight, off norepinephrine gtt somnolent but arousable redness on L leg improved afebrile since noon yesterday Review of Systems Review of Systems: Yes all other systems are reviewed and are negative Physical Exam Vital Signs: Vital Signs: Last Vital Signs Temp 97.0 F 11/20/24 11:08 Pulse 80 11/20/24 11:08 Resp 18 11/20/24 11:08 BP 107/62 11/20/24 11:08 Pulse Ox 98 11/20/24 11:08 O2 Del Method Room Air 11/20/24 11:08 BMI result Body Mass Index 26.0 Gen: somnolent but arousable then fully verbal, requesting her usual medications, disheveled HEENT: sclera anicteric, moist mucus membranes Neck: supple Lungs: clear to auscultation bilaterally Heart: regular rate and rhythm, no murmurs Abd: soft, non-tender, non-distended Ext: no edema Skin: warm/well-perfused, erythema without purulence LLE, improved from demarcation Neuro: alert and oriented x3, no focal findings Psych: restricted affect Objective Data Active Medications Al Hydroxide/Mg Hydroxide (Magnesium Hydrox/Alum Hydrox 30 Ml Oral.Susp) 30 ml PO QID PRN PRN Reason: gi upset Baclofen (Baclofen 10 Mg Tablet) 10 mg PO TID COUNTS INCLUDE 234 BEDS AT THE [facility] Last Admin: 11/20/24 09:57 Dose: 10 mg Documented By: JAM Benzocaine (Throat Lozenge, Medicated Lozenge) 1 lozenge MUCOUS MEM Q2H PRN PRN Reason: Sore Throat Benztropine Mesylate (Benztropine Mesylate 1 Mg Tablet) 1 mg PO BID COUNTS INCLUDE 234 BEDS AT THE [facility] Last Admin: 11/20/24 09:57 Dose: 1 mg Documented By: JAM Bupropion HCl (Bupropion Hcl Xl 150 Mg Tab.Er.24h) 150 mg PO DAILY COUNTS INCLUDE 234 BEDS AT THE [facility] Last Admin: 11/20/24 09:54 Dose: 150 mg Documented By: JAM Calcium Carbonate (Calcium Carbonate 750 Mg Tab.Chew) 750 mg PO Q4H PRN PRN Reason: Heartburn Clonidine HCl (Clonidine Hcl 0.1 Mg Tablet) 0.1 mg PO DAILY PRN; Protocol PRN Reason: Anxiety - 3rd line Diazepam (Diazepam 2 Mg Tablet) 2 mg PO TID PRN PRN Reason: Anxiety - 2nd line Last Admin: 11/20/24 10:03 Dose: 2 mg Documented By: JAM Docusate Sodium (Docusate Sodium 100 Mg Capsule) 100 mg PO BID PRN PRN Reason: Constipation- 1st line Guaifenesin (Guaifenesin La 600 Mg Tab.Er.12h) 1,200 mg PO Q12H PRN PRN Reason: Cough Haloperidol (Haloperidol 5 Mg Tablet) 10 mg PO BID COUNTS INCLUDE 234 BEDS AT THE [facility] Last Admin: 11/20/24 09:57 Dose: 10 mg Documented By: JAM Heparin Sodium (Porcine) (Heparin Sodium,Porcine 5,000 Unit/Ml Vial) 5,000 unit SUBCUT Q8H COUNTS INCLUDE 234 BEDS AT THE [facility] Last Admin: 11/20/24 09:54 Dose: 5,000 unit Documented By: JAM Hydroxyzine HCl (Hydroxyzine Hcl 50 Mg Tablet) 50 mg PO Q4H PRN PRN Reason: moderate to severe anxiety Piperacillin Sod/Tazobactam (Sod 3.375 gm/ Sodium Chloride) 50 mls @ 100 mls/hr IV Q6H COUNTS INCLUDE 234 BEDS AT THE [facility] Last Infusion: 11/20/24 10:34 Dose: Infused Documented By: JAM Vancomycin HCl 750 mg/ Sodium (Chloride) 265 mls @ 265 mls/hr IV Q12H COUNTS INCLUDE 234 BEDS AT THE [facility] Last Admin: 11/20/24 11:31 Dose: 265 mls/hr Documented By: JAM Loperamide HCl (Loperamide Hcl 2 Mg Capsule) 2 mg PO Q4H PRN PRN Reason: Diarrhea Magnesium Hydroxide (Milk Of Magnesia 30 Ml Oral.Susp) 30 ml PO DAILY PRN PRN Reason: Constipation- 3rd line Melatonin (Melatonin 3 Mg Tablet) 3 mg PO BEDTIME PRN PRN Reason: Insomnia Methadone HCl (Methadone Hcl 20 Mg/2 Ml Oral.Conc) 125 mg PO DAILY COUNTS INCLUDE 234 BEDS AT THE [facility] Last Admin: 11/20/24 09:57 Dose: 125 mg Documented By: JAM Co-signed By: FRANCINE Mirtazapine (Mirtazapine 15 Mg Tablet) 15 mg PO BEDTIME COUNTS INCLUDE 234 BEDS AT THE [facility] Nicotine (Nicotine 21 Mg Patch.Td24) 21 mg TRANSDERMA DAILY COUNTS INCLUDE 234 BEDS AT THE [facility] Last Admin: 11/20/24 09:54 Dose: 21 mg Documented By: JAM Nicotine Polacrilex (Nicotine Polacrilex 2 Mg Gum) 2 mg BUCCAL Q2H PRN PRN Reason: Nicotine Cravings Pharmacy Consult (Consult Rx Vancomycin Dosing) 1 each MISCELLANE DAILY PRN PRN Reason: Consult order Pregabalin (Pregabalin 150 Mg Capsule) 150 mg PO BID COUNTS INCLUDE 234 BEDS AT THE [facility] Last Admin: 11/20/24 09:57 Dose: 150 mg Documented By: JAM Quetiapine Fumarate (Quetiapine Fumarate 300 Mg Tablet) 300 mg PO BEDTIME COUNTS INCLUDE 234 BEDS AT THE [facility] Quetiapine Fumarate (Quetiapine Fumarate 50 Mg Tablet) 50 mg PO Q6H PRN PRN Reason: Agitation Senna (Sennosides 8.6 Mg Tablet) 17.2 mg PO DAILY PRN PRN Reason: Constipation- 2nd line Topiramate (Topiramate 25 Mg Tablet) 50 mg PO BID COUNTS INCLUDE 234 BEDS AT THE [facility] Last Admin: 11/20/24 09:54 Dose: 50 mg Documented By: JAM Valacyclovir HCl (Valacyclovir Hcl 1,000 Mg Tablet) 1,000 mg PO Q12H COUNTS INCLUDE 234 BEDS AT THE [facility] Last Admin: 11/20/24 09:57 Dose: 1,000 mg Documented By: JAM Labs 11/20/24 06:49 11/20/24 06:49 Labs: Laboratory Results - last 24 hr 11/19/24 11/19/24 11/19/24 10:31 12:20 12:36 MCV MCH MCHC RDW Plt Count MPV Immature Gran % (Auto) Neut % (Auto) Lymph % (Auto) [place] % (Auto) Eos % (Auto) Baso % (Auto) Lymph # (Auto) [place] # (Auto) Eos # (Auto) Baso # (Auto) Abs Immat Gran (auto) Absolute Neuts (auto) Absolute Nucleated RBC Nucleated RBC % (auto) ESR 56 H VBG pH VBG pCO2 VBG pO2 VBG HCO3 VBG O2 Saturation VBG Base Excess Anion Gap Estim Creat Clear Calc Estimated GFR Random Glucose Calcium Phosphorus Magnesium Total Bilirubin AST ALT Alkaline Phosphatase Ammonia 55 Total Protein Albumin Beta HCG, Quant < 2 Urine Color Yellow Urine Appearance Clear Urine pH 6.0 Ur Specific [place] 1.015 Urine Protein Negative Urine Glucose (UA) Negative Urine Ketones Negative Urine Blood Small (1+) H Urine Nitrite Negative Ur Leukocyte Esterase Small (1+) H Urine RBC 3-5 H Urine WBC 6-10 H Ur Squamous Epith Cells 0-2 Urine Bacteria Trace Hyaline Casts 0-2 Random Vancomycin Urine Opiates Screen Not Detected Ur Buprenorphine Scrn Not Detected Ur Oxycodone Screen Not Detected Urine Methadone Screen Positive H Urine Fentanyl Screen Not Detected Ur Barbiturates Screen Not Detected Ur Phencyclidine Scrn Not Detected Ur Amphetamines Screen Not Detected U Benzodiazepines Scrn POSITIVE H Urine Cocaine Screen Not Detected U Marijuana (THC) Screen Not Detected 11/19/24 11/20/24 11/20/24 17:12 06:49 06:56 MCV 83.9 MCH 28.7 MCHC 34.2 RDW 13.1 Plt Count 223 MPV 9.9 Immature Gran % (Auto) 0.2 Neut % (Auto) 56.0 Lymph % (Auto) 25.2 [place] % (Auto) 9.9 Eos % (Auto) 8.1 H Baso % (Auto) 0.6 Lymph # (Auto) 1.3 [place] # (Auto) 0.5 Eos # (Auto) 0.4 Baso # (Auto) 0.0 Abs Immat Gran (auto) 0.01 Absolute Neuts (auto) 2.8 Absolute Nucleated RBC 0.000 Nucleated RBC % (auto) 0.0 ESR VBG pH 7.40 7.49 H VBG pCO2 37 32 VBG pO2 81 102 VBG HCO3 23 24 VBG O2 Saturation 96.0 100.0 VBG Base Excess -1.0 2.0 Anion Gap 9 L Estim Creat Clear Calc 91.7 Estimated GFR > 60 Random Glucose 87 Calcium 8.4 D Phosphorus 3.4 Magnesium 2.1 Total Bilirubin 0.3 AST 16 ALT 8 Alkaline Phosphatase 77 Ammonia Total Protein 6.0 L Albumin 2.7 L Beta HCG, Quant Urine Color Urine Appearance Urine pH Ur Specific [place] Urine Protein Urine Glucose (UA) Urine Ketones Urine Blood Urine Nitrite Ur Leukocyte Esterase Urine RBC Urine WBC Ur Squamous Epith Cells Urine Bacteria Hyaline Casts Random Vancomycin Urine Opiates Screen Ur Buprenorphine Scrn Ur Oxycodone Screen Urine Methadone Screen Urine Fentanyl Screen Ur Barbiturates Screen Ur Phencyclidine Scrn Ur Amphetamines Screen U Benzodiazepines Scrn Urine Cocaine Screen U Marijuana (THC) Screen 11/20/24 09:53 MCV MCH MCHC RDW Plt Count MPV Immature Gran % (Auto) Neut % (Auto) Lymph % (Auto) [place] % (Auto) Eos % (Auto) Baso % (Auto) Lymph # (Auto) [place] # (Auto) Eos # (Auto) Baso # (Auto) Abs Immat Gran (auto) Absolute Neuts (auto) Absolute Nucleated RBC Nucleated RBC % (auto) ESR VBG pH VBG pCO2 VBG pO2 VBG HCO3 VBG O2 Saturation VBG Base Excess Anion Gap Estim Creat Clear Calc Estimated GFR Random Glucose Calcium Phosphorus Magnesium Total Bilirubin AST ALT Alkaline Phosphatase Ammonia Total Protein Albumin Beta HCG, Quant Urine Color Urine Appearance Urine pH Ur Specific [place] Urine Protein Urine Glucose (UA) Urine Ketones Urine Blood Urine Nitrite Ur Leukocyte Esterase Urine RBC Urine WBC Ur Squamous Epith Cells Urine Bacteria Hyaline Casts Random Vancomycin 13.9 L Urine Opiates Screen Ur Buprenorphine Scrn Ur Oxycodone Screen Urine Methadone Screen Urine Fentanyl Screen Ur Barbiturates Screen Ur Phencyclidine Scrn Ur Amphetamines Screen U Benzodiazepines Scrn Urine Cocaine Screen U Marijuana (THC) Screen Microbiology Microbiology Results: Microbiology 11/19/24 Unknown Urine Culture - Preliminary Urine Catheterized - Straight Catheter No growth to date. Assessment and Plan (1) Septic shock: Status: Acute Plan d2 for 44yo F from [facility] with history of bipolar, PTSD, OUD, seizures, fibromyalgia, and asthma admitted to ICU for septic shock due to LLE cellulitis LLE nonpurulent cellulitis - CT without deep space infection or abscess; continue vancomycin + piperacillin-tazobactam, follow BCx oral HSV - valacylovir 11/19- QT prolongation - recheck EKG. Mg >2, K 3.5 so will give 40 mEq PO KCl OUD - methadone with QT precautions as above seizure disorder - topiramate, pregabalin bipolar disorder - quetiapine, mirtazapine, haloperidol, bupropion, mirtazapine, diazepam, hydroxyzine, clonidine as per medication reconciliation tobacco abuse - NRT VTE ppx - enoxaparin dispo - eventual return to [facility] In my clinical judgment, the patient requires continued inpatient hospitalization for the following reasons: IV ABX Total time managing care of this patient today: 45 minutes. Quality Stroke Does the patient have a stroke diagnosis?: No VTE Prior VTE?: No VTE Risk Level:: Medical - moderate - high VTE Device Contraindication: Treatment Not Indicated VTE Drug Contraindication: N/A - Med Ordered
[2024-11-20] MEDS: Enoxaparin Sodium 40 MG/0.4 ML SYRINGE SUBCUT (15:30)
[2024-11-20] MEDS: Potassium Chloride ER 20 MEQ TAB.ER.PRT 40 MEQ PO (15:30)
--- NOTE | 2024-11-20 16:06 | MHC.CM.PN ---
Pt came to [facility] from [facility], she is from [place], [place], and is homeless. She does not have a PCP, but said she has a psychiatrist at [facility], she could not recall their name. She is uncertain on her DCP. CM to follow for DC needs.
[2024-11-20] MEDS: Morphine Sulfate 2 MG/ML CARTRIDGE IVPUSH (17:14)
[2024-11-20] MEDS: cloNIDine HCL 0.1 MG TABLET PO (17:15)
[2024-11-20] MEDS: QUEtiapine Fumarate 300 MG TABLET PO (20:23)
[2024-11-21] MEDS: Piperacillin Sodium/Tazobactam 3.375 GM in 0.9 % Sodium Chloride 50 ML IV ×4 (02:41→21:16)
[2024-11-21 03:07] VITALS: BP 111/67; PULSE 68; RESP 20; TEMP 36.5; O2SAT 97
[2024-11-21 06:00] VITALS: BMI 29.4
[2024-11-21 07:09] LABS: Hematocrit 34.2 % (37.0-47.0); Hemoglobin 11.2 g/dl (12.0-16.0); Mean Corpuscular HGB Conc 32.7 g/dl (31.0-35.0); Mean Corpuscular Hemoglobin 27.8 pg (27.0-33.0); Mean Corpuscular Volume 84.9 fL (80.0-98.0); Mean Platelet Volume 9.6 fL (9.4-12.3); Platelet Count 291 X10*3/uL (160-400); Red Blood Count 4.03 X10*6/uL (4.20-5.50); White Blood Count 4.2 X10*3/uL (4.8-10.8)
[2024-11-21 07:26] LABS: Anion Gap 11 (12-20); Blood Urea Nitrogen 10 mg/dL (9-16); Calcium 9.2 mg/dL (8.4-10.2); Carbon Dioxide 23 mmol/L (22-29); Chloride 111 mmol/L (96-108); Creatinine Clr Calc Pharmacy 77.9; Estimated Glomerular Filt Rate > 60; Glucose Random 86 mg/dL (60-115); Potassium 3.9 mmol/L (3.3-5.1); Sodium 141 mmol/L (135-145)
[2024-11-21 07:53] LABS: HBS Num1 > 1000.00 mIU/mL (0-7.99); HBc Num1 0.13 S/CO (0.00-0.79); HBsAGNum1 0.32 S/CO (0.00-0.99); HIV AB/AG Nonreactive (Nonreactive); HIV Num 1 0.06 S/CO (0.00-0.99); Hepatitis B Core Antibody Nonreactive (Nonreactive); Hepatitis B Surface Antigen Negative (Negative); ~HepC Num1 11.29 S/CO (0.00-0.79); ~Hepatitis B Surface Antibody REACTIVE (Nonreactive); ~Hepatitis C Antibody Reactive (Nonreactive)
[2024-11-21 08:00] VITALS: BP 127/94; PULSE 85; RESP 16; TEMP 36; O2SAT 96
--- NOTE | 2024-11-21 09:47 | HO.ADDICTCON ---
History of Present Illness Date of Service: 11/21/2024 Chief Complaint: AMS Reason for Consult: GUSTAVO Sources of Information: patient interviewed and chart reviewed HPI Narrative: Patient is a 44 year old female who presented to [facility] from [facility] for evaluation of wound. In ED patient lethargic, and hypotensive--requiring pressor support and (brief) ICU admission Seen today in med/tele room 477, patient stepped down yesterday (11/20). Patient awake, alert, engaged in interview--quite tangential and circumstantial during interview, requiring redirection at times to answer questions. When asked what brought her to [facility], she stated that she had a seizure, then able to state that it was related to wound on her leg. Patient is from [place], transferred to from [place], [place]. for self reported suicidal ideation Reports long history of substance use--no opiate use for 4 year Engaged in treatment with [facility] and taking MOUD for 23 years. She states that cocaine is what she is using currently, and has been having difficulty stopping Identified her living situation as contributing to this as her partner also smokes cocaine. She reports numerous psychiatric admissions and is connected to provider in her area. Extensive medication list with numerous psychiatric medications. EKG reviewed Labs reviewed--Hep C VL pending Review of Systems Constitutional: Reports as per HPI (pain in left lower leg ) Gastrointestinal: Denies loose stools and Denies nausea Musculoskeletal: Denies myalgias and Denies muscle cramps Psychiatric: Denies anxiety Diagnostics Vital Signs (24Hr): Vital Signs - 24 hr 11/20/24 11:08 11/20/24 15:33 11/20/24 17:15 Temperature 97.0 F 98.2 F Pulse Rate 80 78 Respiratory Rate 18 18 Blood Pressure 107/62 113/75 113/75 Pulse Oximetry 98 97 Oxygen Delivery Method Room Air Room Air 11/20/24 19:17 11/20/24 23:43 11/21/24 03:07 Temperature 98.5 F 99.2 F 97.7 F Pulse Rate 71 73 68 Respiratory Rate 18 18 20 Blood Pressure 101/62 109/66 111/67 Pulse Oximetry 96 97 97 Oxygen Delivery Method Room Air Room Air Room Air 11/21/24 08:00 Temperature 96.8 F Pulse Rate 85 Respiratory Rate 16 Blood Pressure 127/94 H Pulse Oximetry 96 Oxygen Delivery Method Room Air BMI result Body Mass Index 29.4 Labs 11/21/24 06:44 11/21/24 06:44 Labs: Laboratory Results - last 48 hr 11/19/24 11/19/24 11/19/24 10:31 12:20 12:36 WBC 12.6 H RBC 4.27 Hgb 11.9 L Hct 35.9 L MCV 84.1 MCH 27.9 MCHC 33.1 RDW 13.1 Plt Count 256 MPV 9.8 Immature Gran % (Auto) 0.3 Neut % (Auto) 88.3 H Lymph % (Auto) 4.7 L [place] % (Auto) 5.2 Eos % (Auto) 1.2 Baso % (Auto) 0.3 Lymph # (Auto) 0.6 L [place] # (Auto) 0.7 Eos # (Auto) 0.2 Baso # (Auto) 0.0 Abs Immat Gran (auto) 0.04 H Absolute Neuts (auto) 11.2 H Absolute Nucleated RBC 0.000 Nucleated RBC % (auto) 0.0 ESR 56 H VBG pH VBG pCO2 VBG pO2 VBG HCO3 VBG O2 Saturation VBG Base Excess Sodium 137 Potassium 4.2 Chloride 107 Carbon Dioxide 24 Anion Gap 10 L BUN 14 Creatinine 0.81 Estim Creat Clear Calc 78.0 Estimated GFR > 60 Random Glucose 107 Lactic Acid 1.0 Calcium 9.1 Phosphorus Magnesium 2.2 Total Bilirubin 0.3 AST 17 ALT 11 Alkaline Phosphatase 84 Ammonia 55 Troponin I High Sens C-Reactive Protein 12.69 H Total Protein 7.5 Albumin 3.4 L Beta HCG, Quant < 2 Urine Color Yellow Urine Appearance Clear Urine pH 6.0 Ur Specific [place] 1.015 Urine Protein Negative Urine Glucose (UA) Negative Urine Ketones Negative Urine Blood Small (1+) H Urine Nitrite Negative Ur Leukocyte Esterase Small (1+) H Urine RBC 3-5 H Urine WBC 6-10 H Ur Squamous Epith Cells 0-2 Urine Bacteria Trace Hyaline Casts 0-2 Random Vancomycin Urine Opiates Screen Not Detected Ur Buprenorphine Scrn Not Detected Ur Oxycodone Screen Not Detected Urine Methadone Screen Positive H Urine Fentanyl Screen Not Detected Ur Barbiturates Screen Not Detected Ur Phencyclidine Scrn Not Detected Ur Amphetamines Screen Not Detected U Benzodiazepines Scrn POSITIVE H Urine Cocaine Screen Not Detected U Marijuana (THC) Screen Not Detected Hep Bs Antigen Hep Bs Antibody Hep B Core Total Ab Hepatitis C Ab (EIA) HIV 1&2 Ab/P24 Ag 4thGn 11/19/24 11/19/24 11/20/24 15:24 17:12 06:49 WBC 5.1 RBC 3.48 L Hgb 10.0 L Hct 29.2 L MCV 83.9 MCH 28.7 MCHC 34.2 RDW 13.1 Plt Count 223 MPV 9.9 Immature Gran % (Auto) 0.2 Neut % (Auto) 56.0 Lymph % (Auto) 25.2 [place] % (Auto) 9.9 Eos % (Auto) 8.1 H Baso % (Auto) 0.6 Lymph # (Auto) 1.3 [place] # (Auto) 0.5 Eos # (Auto) 0.4 Baso # (Auto) 0.0 Abs Immat Gran (auto) 0.01 Absolute Neuts (auto) 2.8 Absolute Nucleated RBC 0.000 Nucleated RBC % (auto) 0.0 ESR VBG pH 7.40 VBG pCO2 37 VBG pO2 81 VBG HCO3 23 VBG O2 Saturation 96.0 VBG Base Excess -1.0 Sodium 140 Potassium 3.5 Chloride 112 H Carbon Dioxide 23 Anion Gap 9 L BUN 11 Creatinine 0.69 Estim Creat Clear Calc 91.7 Estimated GFR > 60 Random Glucose 87 Lactic Acid Calcium 8.4 D Phosphorus 3.4 Magnesium 2.1 Total Bilirubin 0.3 AST 16 ALT 8 Alkaline Phosphatase 77 Ammonia Troponin I High Sens < 2.7 C-Reactive Protein Total Protein 6.0 L Albumin 2.7 L Beta HCG, Quant Urine Color Urine Appearance Urine pH Ur Specific [place] Urine Protein Urine Glucose (UA) Urine Ketones Urine Blood Urine Nitrite Ur Leukocyte Esterase Urine RBC Urine WBC Ur Squamous Epith Cells Urine Bacteria Hyaline Casts Random Vancomycin Urine Opiates Screen Ur Buprenorphine Scrn Ur Oxycodone Screen Urine Methadone Screen Urine Fentanyl Screen Ur Barbiturates Screen Ur Phencyclidine Scrn Ur Amphetamines Screen U Benzodiazepines Scrn Urine Cocaine Screen U Marijuana (THC) Screen Hep Bs Antigen Hep Bs Antibody Hep B Core Total Ab Hepatitis C Ab (EIA) HIV 1&2 Ab/P24 Ag 4thGn 11/20/24 11/20/24 11/21/24 06:56 09:53 06:44 WBC 4.2 L RBC 4.03 L Hgb 11.2 L Hct 34.2 L MCV 84.9 MCH 27.8 MCHC 32.7 RDW 13.0 Plt Count 291 D MPV 9.6 Immature Gran % (Auto) Neut % (Auto) Lymph % (Auto) [place] % (Auto) Eos % (Auto) Baso % (Auto) Lymph # (Auto) [place] # (Auto) Eos # (Auto) Baso # (Auto) Abs Immat Gran (auto) Absolute Neuts (auto) Absolute Nucleated RBC 0.000 Nucleated RBC % (auto) 0.0 ESR VBG pH 7.49 H VBG pCO2 32 VBG pO2 102 VBG HCO3 24 VBG O2 Saturation 100.0 VBG Base Excess 2.0 Sodium 141 Potassium 3.9 Chloride 111 H Carbon Dioxide 23 Anion Gap 11 L BUN 10 Creatinine 0.86 Estim Creat Clear Calc 77.9 Estimated GFR > 60 Random Glucose 86 Lactic Acid Calcium 9.2 D Phosphorus Magnesium Total Bilirubin AST ALT Alkaline Phosphatase Ammonia Troponin I High Sens C-Reactive Protein Total Protein Albumin Beta HCG, Quant Urine Color Urine Appearance Urine pH Ur Specific [place] Urine Protein Urine Glucose (UA) Urine Ketones Urine Blood Urine Nitrite Ur Leukocyte Esterase Urine RBC Urine WBC Ur Squamous Epith Cells Urine Bacteria Hyaline Casts Random Vancomycin 13.9 L Urine Opiates Screen Ur Buprenorphine Scrn Ur Oxycodone Screen Urine Methadone Screen Urine Fentanyl Screen Ur Barbiturates Screen Ur Phencyclidine Scrn Ur Amphetamines Screen U Benzodiazepines Scrn Urine Cocaine Screen U Marijuana (THC) Screen Hep Bs Antigen Negative Hep Bs Antibody REACTIVE Hep B Core Total Ab Nonreactive Hepatitis C Ab (EIA) Reactive H HIV 1&2 Ab/P24 Ag 4thGn Nonreactive Mental Status Exam Mental Status Exam Patient Appearance: Well Grooomed Level of Consciousness: Awake and Appropriate Patient Behavior: Appropriate and Talkative Affect Description: Calm and Appropriate Speech Pattern: Clear and Rambling Hallucinations: None Thought Content: positive for Circumstantial and positive for Tangential Judgement: Fair Medications Medications Current Medications Al Hydroxide/Mg Hydroxide (Magnesium Hydrox/Alum Hydrox 30 Ml Oral.Susp) 30 ml PO QID PRN PRN Reason: gi upset Baclofen (Baclofen 10 Mg Tablet) 10 mg PO TID [facility] Last Admin: 11/20/24 20:22 Dose: 10 mg Benzocaine (Throat Lozenge, Medicated Lozenge) 1 lozenge MUCOUS MEM Q2H PRN PRN Reason: Sore Throat Benztropine Mesylate (Benztropine Mesylate 1 Mg Tablet) 1 mg PO BID [facility] Last Admin: 11/20/24 20:22 Dose: 1 mg Bupropion HCl (Bupropion Hcl Xl 150 Mg Tab.Er.24h) 150 mg PO DAILY [facility] Last Admin: 11/20/24 09:54 Dose: 150 mg Calcium Carbonate (Calcium Carbonate 750 Mg Tab.Chew) 750 mg PO Q4H PRN PRN Reason: Heartburn Clonidine HCl (Clonidine Hcl 0.1 Mg Tablet) 0.1 mg PO DAILY PRN; Protocol PRN Reason: Anxiety - 3rd line Last Admin: 11/20/24 17:15 Dose: 0.1 mg Diazepam (Diazepam 2 Mg Tablet) 2 mg PO TID PRN PRN Reason: Anxiety - 2nd line Last Admin: 11/20/24 20:22 Dose: 2 mg Docusate Sodium (Docusate Sodium 100 Mg Capsule) 100 mg PO BID PRN PRN Reason: Constipation- 1st line Enoxaparin Sodium (Enoxaparin Sodium 40 Mg/0.4 Ml Syringe) 40 mg SUBCUT Q24H [facility] Last Admin: 11/20/24 15:30 Dose: 40 mg Guaifenesin (Guaifenesin La 600 Mg Tab.Er.12h) 1,200 mg PO Q12H PRN PRN Reason: Cough Haloperidol (Haloperidol 5 Mg Tablet) 10 mg PO BID [facility] Last Admin: 11/20/24 20:22 Dose: 10 mg Hydroxyzine HCl (Hydroxyzine Hcl 50 Mg Tablet) 50 mg PO Q4H PRN PRN Reason: moderate to severe anxiety Piperacillin Sod/Tazobactam (Sod 3.375 gm/ Sodium Chloride) 50 mls @ 100 mls/hr IV Q6H [facility] Last Infusion: 11/21/24 03:28 Dose: Infused Vancomycin HCl 750 mg/ Sodium (Chloride) 265 mls @ 265 mls/hr IV Q12H [facility] Last Infusion: 11/21/24 01:16 Dose: Infused Loperamide HCl (Loperamide Hcl 2 Mg Capsule) 2 mg PO Q4H PRN PRN Reason: Diarrhea Magnesium Hydroxide (Milk Of Magnesia 30 Ml Oral.Susp) 30 ml PO DAILY PRN PRN Reason: Constipation- 3rd line Melatonin (Melatonin 3 Mg Tablet) 3 mg PO BEDTIME PRN PRN Reason: Insomnia Methadone HCl (Methadone Hcl 20 Mg/2 Ml Oral.Conc) 125 mg PO DAILY [facility] Last Admin: 11/20/24 09:57 Dose: 125 mg Mirtazapine (Mirtazapine 15 Mg Tablet) 15 mg PO BEDTIME [facility] Last Admin: 11/20/24 20:22 Dose: 15 mg Morphine Sulfate (Morphine Sulfate 2 Mg/Ml Cartridge) 2 mg IVPUSH Q4H PRN; Protocol PRN Reason: Pain, Severe (Pain Scale 7-10) Last Admin: 11/20/24 17:14 Dose: 2 mg Nicotine (Nicotine 21 Mg Patch.Td24) 21 mg TRANSDERMA DAILY [facility] Last Admin: 11/20/24 09:54 Dose: 21 mg Nicotine Polacrilex (Nicotine Polacrilex 2 Mg Gum) 2 mg BUCCAL Q2H PRN PRN Reason: Nicotine Cravings Pharmacy Consult (Consult Rx Vancomycin Dosing) 1 each MISCELLANE DAILY PRN PRN Reason: Consult order Pregabalin (Pregabalin 150 Mg Capsule) 150 mg PO BID [facility] Last Admin: 11/20/24 20:22 Dose: 150 mg Quetiapine Fumarate (Quetiapine Fumarate 300 Mg Tablet) 300 mg PO BEDTIME [facility] Last Admin: 11/20/24 20:23 Dose: 300 mg Quetiapine Fumarate (Quetiapine Fumarate 50 Mg Tablet) 50 mg PO Q6H PRN PRN Reason: Agitation Senna (Sennosides 8.6 Mg Tablet) 17.2 mg PO DAILY PRN PRN Reason: Constipation- 2nd line Topiramate (Topiramate 25 Mg Tablet) 50 mg PO BID [facility] Last Admin: 11/20/24 20:22 Dose: 50 mg Valacyclovir HCl (Valacyclovir Hcl 1,000 Mg Tablet) 1,000 mg PO Q12H [facility] Last Admin: 11/20/24 20:22 Dose: 1,000 mg Allergies Allergies Allergy/AdvReac Type Severity Reaction Status Date / Time lamotrigine [From Lamictal] Allergy Unknown Verified 11/19/24 09:25 Assessment & Plan Assessment & Plan (1) Cocaine use disorder: Status: Acute Code(s): F14.10 - Cocaine abuse, uncomplicated Assessment and Plan: Patient connected to providers in her community --declines referrals or appt for outpatient GUSTAVO treatment (connected to [facility]) , or medications for GUSTAVO (already prescribed methadone, baclofen, toppmax) 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 PMFSH Social History Social History Household Members: None Housing: Homeless Do you presently have visiting nurse or other home services: No Unable to assess alcohol history related to: Unable to respond Comment: 1:1 sitter Patient Tobacco Use Status: Current everyday Tobacco user Tobacco use type: Cigarette Cigarette Packs Per Day: 1.5 Cigarettes Per Day: 30.0 Smoked in Last 30 Days: Yes Patient Interested in Nicotine Replacement: Yes Patient Given Instructions on How to Stop Smoking: No (declined) Use of substances other than those prescribed or required for medical reasons: Unknown Currently Displaying Signs/Symptoms of Drug Intoxication Withdrawal: No Have you been hit, kicked, punched, or otherwise hurt by someone within the past year? If so, by whom?: No Do you feel safe in your current relationship?: Yes Is there a partner from a previous relationship who is making you feel unsafe now?: No Are you made to feel afraid or neglected: No Protestant Healthcare Practices: Roman Catholic Advance Directives: No Advance Directives Information Provided: No Do you have a plan to hurt others: No Plan Recently lost weight without trying: Unsure Eating poorly because of decreased appetite: No Nutrition Risks: On aspiration precautions Patient : No : No Poor oral hygiene: No service: No
[2024-11-21] MEDS: methADONE HCl 20 MG/2 ML ORAL.CONC 125 MG PO (10:23)
[2024-11-21] MEDS: HaloperidoL 5 MG TABLET 10 MG PO ×2 (10:24→21:16)
[2024-11-21] MEDS: Nicotine 21 MG PATCH.TD24 TRANSDERMA (10:24)
[2024-11-21] MEDS: Pregabalin 150 MG CAPSULE PO ×2 (10:24→21:16)
[2024-11-21] MEDS: Topiramate 25 MG TABLET 50 MG PO ×2 (10:24→21:17)
[2024-11-21] MEDS: buPROPion HCl XL 150 MG TAB.ER.24H PO (10:24)
[2024-11-21] MEDS: valACYclovir HCL 1,000 MG TABLET 1000 MG PO ×2 (10:24→21:17)
[2024-11-21] MEDS: Benztropine Mesylate 1 MG TABLET PO ×2 (10:24→21:17)
[2024-11-21] MEDS: Baclofen 10 MG TABLET PO ×2 (10:24→21:16)
[2024-11-21 10:51] LABS: Vancomycin Random 13.8 mcg/mL (15-20)
--- NOTE | 2024-11-21 10:57 | HE.PHANOTE ---
RE: VANCO DOSING Trough came back as13.8 mg/L. Continue with dose of 750 mg q12h, next trough is scheduled for 11/22/24 @1000.
[2024-11-21 12:00] VITALS: BP 117/86; PULSE 91; RESP 18; TEMP 36.8; O2SAT 96
[2024-11-21] MEDS: vancomycin HCL 750 MG in 0.9 % Sodium Chloride 250 ML 265 MG IV (12:53)
--- NOTE | 2024-11-21 15:01 | MHC.CM.PN ---
EMR reviewed and per MD rounds, pt is not medically cleared for discharge due to management of cellulitis, on IV ABX.
[2024-11-21 16:00] VITALS: BP 117/76; PULSE 64; RESP 14; TEMP 36.5; O2SAT 97
--- NOTE | 2024-11-21 17:12 | P.PNIM_ITS ---
Subjective Subjective Date of Service: 11/21/24 Interval History: Somnolent but arousable. When aroused asking for Valium and morphine Review of Systems Denies chest pain Denies shortness of breath Denies nausea vomiting diarrhea Denies fever chills Physical Exam 2 Vital Signs: Vital Signs: Last Vital Signs Temp 97.7 F 11/21/24 16:00 Pulse 64 11/21/24 16:00 Resp 14 11/21/24 16:00 BP 117/76 11/21/24 16:00 Pulse Ox 97 11/21/24 16:00 O2 Del Method Room Air 11/21/24 16:00 BMI result Body Mass Index 29.4 Const: Other: Awake alert (when examined in a.m.) Resp: Other: Clear to auscultation bilaterally no rales rhonchi or wheezes Cardio: Other: No S4; positive S1-S2; no S3 murmurs rubs or gallops GI: Other: Soft nontender nondistended normoactive bowel sounds Extrem: Other: No edema bilaterally Objective Data Active Medications Al Hydroxide/Mg Hydroxide (Magnesium Hydrox/Alum Hydrox 30 Ml Oral.Susp) 30 ml PO QID PRN PRN Reason: gi upset Baclofen (Baclofen 10 Mg Tablet) 10 mg PO TID [facility] Last Admin: 11/21/24 15:34 Dose: Not Given Documented By: BRENT Non-Admin Reason: see note Benzocaine (Throat Lozenge, Medicated Lozenge) 1 lozenge MUCOUS MEM Q2H PRN PRN Reason: Sore Throat Benztropine Mesylate (Benztropine Mesylate 1 Mg Tablet) 1 mg PO BID [facility] Last Admin: 11/21/24 10:24 Dose: 1 mg Documented By: BRENT Bupropion HCl (Bupropion Hcl Xl 150 Mg Tab.Er.24h) 150 mg PO DAILY [facility] Last Admin: 11/21/24 10:24 Dose: 150 mg Documented By: BRENT Calcium Carbonate (Calcium Carbonate 750 Mg Tab.Chew) 750 mg PO Q4H PRN PRN Reason: Heartburn Clonidine HCl (Clonidine Hcl 0.1 Mg Tablet) 0.1 mg PO DAILY PRN; Protocol PRN Reason: Anxiety - 3rd line Last Admin: 11/20/24 17:15 Dose: 0.1 mg Documented By: JAM Diazepam (Diazepam 2 Mg Tablet) 2 mg PO TID PRN PRN Reason: Anxiety - 2nd line Last Admin: 11/20/24 20:22 Dose: 2 mg Documented By: CIERRA Docusate Sodium (Docusate Sodium 100 Mg Capsule) 100 mg PO BID PRN PRN Reason: Constipation- 1st line Enoxaparin Sodium (Enoxaparin Sodium 40 Mg/0.4 Ml Syringe) 40 mg SUBCUT Q24H [facility] Last Admin: 11/21/24 15:34 Dose: Not Given Documented By: BRENT Non-Admin Reason: see note Guaifenesin (Guaifenesin La 600 Mg Tab.Er.12h) 1,200 mg PO Q12H PRN PRN Reason: Cough Haloperidol (Haloperidol 5 Mg Tablet) 10 mg PO BID [facility] Last Admin: 11/21/24 10:24 Dose: 10 mg Documented By: BRENT Hydroxyzine HCl (Hydroxyzine Hcl 50 Mg Tablet) 50 mg PO Q4H PRN PRN Reason: moderate to severe anxiety Piperacillin Sod/Tazobactam (Sod 3.375 gm/ Sodium Chloride) 50 mls @ 100 mls/hr IV Q6H [facility] Last Admin: 11/21/24 16:45 Dose: 100 mls/hr Documented By: BRENT Vancomycin HCl 750 mg/ Sodium (Chloride) 265 mls @ 265 mls/hr IV Q12H [facility] Last Infusion: 11/21/24 14:24 Dose: Infused Documented By: BRENT Loperamide HCl (Loperamide Hcl 2 Mg Capsule) 2 mg PO Q4H PRN PRN Reason: Diarrhea Magnesium Hydroxide (Milk Of Magnesia 30 Ml Oral.Susp) 30 ml PO DAILY PRN PRN Reason: Constipation- 3rd line Melatonin (Melatonin 3 Mg Tablet) 3 mg PO BEDTIME PRN PRN Reason: Insomnia Methadone HCl (Methadone Hcl 20 Mg/2 Ml Oral.Conc) 125 mg PO DAILY [facility] Last Admin: 11/21/24 10:23 Dose: 125 mg Documented By: BRENT Co-signed By: ALEXANDR Mirtazapine (Mirtazapine 15 Mg Tablet) 15 mg PO BEDTIME [facility] Last Admin: 11/20/24 20:22 Dose: 15 mg Documented By: CIERRA Morphine Sulfate (Morphine Sulfate 2 Mg/Ml Cartridge) 2 mg IVPUSH Q4H PRN; Protocol PRN Reason: Pain, Severe (Pain Scale 7-10) Last Admin: 11/20/24 17:14 Dose: 2 mg Documented By: JAM Nicotine (Nicotine 21 Mg Patch.Td24) 21 mg TRANSDERMA DAILY [facility] Last Admin: 11/21/24 10:24 Dose: 21 mg Documented By: BRENT Nicotine Polacrilex (Nicotine Polacrilex 2 Mg Gum) 2 mg BUCCAL Q2H PRN PRN Reason: Nicotine Cravings Pharmacy Consult (Consult Rx Vancomycin Dosing) 1 each MISCELLANE DAILY PRN PRN Reason: Consult order Pregabalin (Pregabalin 150 Mg Capsule) 150 mg PO BID [facility] Last Admin: 11/21/24 10:24 Dose: 150 mg Documented By: BRENT Quetiapine Fumarate (Quetiapine Fumarate 300 Mg Tablet) 300 mg PO BEDTIME [facility] Last Admin: 11/20/24 20:23 Dose: 300 mg Documented By: CIERRA Quetiapine Fumarate (Quetiapine Fumarate 50 Mg Tablet) 50 mg PO Q6H PRN PRN Reason: Agitation Senna (Sennosides 8.6 Mg Tablet) 17.2 mg PO DAILY PRN PRN Reason: Constipation- 2nd line Topiramate (Topiramate 25 Mg Tablet) 50 mg PO BID [facility] Last Admin: 11/21/24 10:24 Dose: 50 mg Documented By: BRENT Valacyclovir HCl (Valacyclovir Hcl 1,000 Mg Tablet) 1,000 mg PO Q12H [facility] Last Admin: 11/21/24 10:24 Dose: 1,000 mg Documented By: BRENT Labs 11/21/24 06:44 11/21/24 06:44 Labs: Laboratory Results - last 24 hr 11/21/24 11/21/24 06:44 10:11 MCV 84.9 MCH 27.8 MCHC 32.7 RDW 13.0 Plt Count 291 D MPV 9.6 Absolute Nucleated RBC 0.000 Nucleated RBC % (auto) 0.0 Anion Gap 11 L Estim Creat Clear Calc 77.9 Estimated GFR > 60 Random Glucose 86 Calcium 9.2 D Random Vancomycin 13.8 L Hep Bs Antigen Negative Hep Bs Antibody REACTIVE Hep B Core Total Ab Nonreactive Hepatitis C Ab (EIA) Reactive H HIV 1&2 Ab/P24 Ag 4thGn Nonreactive Microbiology Microbiology Results: Microbiology 11/19/24 11:22 Blood Culture - Preliminary Blood - Venous No growth after 48 hours. 11/19/24 10:31 Blood Culture - Preliminary Blood - Venous No growth after 48 hours. 11/19/24 Unknown Urine Culture - Final Urine Catheterized - Straight Catheter No growth. Assessment and Plan (1) Cellulitis: Status: Acute (2) Septic shock: Status: Acute Plan 44yo F from [facility] with history of bipolar, PTSD, OUD, seizures, fibromyalgia, and asthma admitted to ICU for septic shock due to LLE cellulitis 1.LLE nonpurulent cellulitis - CT without deep space infection or abscess -vancomycin/piperacillin-tazobactam(3) -blood cultures negative times 48 hours 2.Oral HSV - valacylovir(3) 3.OUD - methadone with QT precautions as above 4.Seizure disorder - topiramate, pregabalin 5.Bipolar disorder -somnolent most of day -we will hold Valium and morphine overnight and adjust meds in a.m. Lovenox Full Code In my clinical judgment, the patient requires continued inpatient hospitalization for the following reasons: IV ABX Quality Stroke Does the patient have a stroke diagnosis?: No VTE Prior VTE?: No VTE Risk Level:: Medical - moderate - high VTE Device Contraindication: Treatment Not Indicated VTE Drug Contraindication: N/A - Med Ordered
[2024-11-21] MEDS: hydrOXYzine HCL 50 MG TABLET PO (18:22)
--- NOTE | 2024-11-21 19:09 | PC.NURSE ---
1430 this RN expressed concern to that scheduled meds may need to be adjusted d/t pt having several episodes of unresponsiveness. this RN gave scheduled meds when she was awake and oriented, a few hours later pt only responsive via sternal rub, pt opens eyes for a few seconds and closes them. MD notified. no new orders at this time 1630 pt able to be aroused via sternal rub and now awake yet drowsy with gargled speak. asking for vallium and pain medication upon awaking. This RN not comfortable with giving those meds given status, MD notified and agreed, stated to place morphine/vallium on hold overnight and will hold off on ordering oxycodone until more awake. This RN asked for alternative for pain until AM, no new orders at this time. 1730 pt ambulated out to nurses station with [employer] and sitter asking to speak with this RN about vallium and pain meds. this RN stated she will speak with pt regarding this in room. pt understood and walked back to room. 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 pt agreeable to take hydroxyzine, see MAR staying the night with pt with 1:1 sitting in room.
[2024-11-21 19:26] VITALS: BP 146/72; PULSE 88; RESP 18; TEMP 36.6; O2SAT 96
[2024-11-21] MEDS: Mirtazapine 15 MG TABLET PO (21:16)
[2024-11-21] MEDS: QUEtiapine Fumarate 300 MG TABLET PO (21:18)
[2024-11-21 23:16] VITALS: BP 109/63; PULSE 80; RESP 18; TEMP 36.4; O2SAT 97
[2024-11-22] MEDS: vancomycin HCL 750 MG in 0.9 % Sodium Chloride 250 ML 265 MG IV (00:50)
[2024-11-22 03:08] VITALS: BP 118/72; PULSE 74; RESP 18; TEMP 36.7; O2SAT 96
[2024-11-22] MEDS: Piperacillin Sodium/Tazobactam 3.375 GM in 0.9 % Sodium Chloride 50 ML IV ×4 (04:00→22:02)
[2024-11-22 06:53] LABS: MANUAL DIFF FLAG NO
[2024-11-22 06:58] VITALS: BP 119/76; PULSE 73; RESP 18; TEMP 36.9; O2SAT 95
[2024-11-22 07:03] LABS: Basophils Percent Auto 0.9 % (0-2); Eosinophils Absolute Auto 0.3 X10*3/uL (0.0-0.4); Eosinophils Percent Auto 6.6 % (0-4); Hematocrit 31.6 % (37.0-47.0); Hemoglobin 10.4 g/dl (12.0-16.0); Imm Gran Abs Auto 0.02 X10*3/uL (0.00-0.03); Imm Gran Pct Auto 0.5 % (0.0-0.4); Lymphocytes Absolute Auto 1.3 X10*3/uL (1.2-4.9); Lymphocytes Percent Auto 30.7 % (20-40); Mean Corpuscular HGB Conc 32.9 g/dl (31.0-35.0); Mean Corpuscular Hemoglobin 27.7 pg (27.0-33.0); Mean Corpuscular Volume 84.3 fL (80.0-98.0); Mean Platelet Volume 9.6 fL (9.4-12.3); Monocytes Absolute Auto 0.4 X10*3/uL (0.1-1.2); Monocytes Percent Auto 8.2 % (2-11); Neutrophils Absolute Auto 2.3 x10*3/uL (2.0-8.3); Neutrophils Percent Auto 53.1 % (45-73); Platelet Count 268 X10*3/uL (160-400); Red Blood Count 3.75 X10*6/uL (4.20-5.50); Red Cell Distribution Width 13.1 % (11.0-16.0); White Blood Count 4.4 X10*3/uL (4.8-10.8)
[2024-11-22 07:18] LABS: Alanine Aminotransferase 7 U/L (0-31); Alkaline Phosphatase 74 U/L (39-117); Anion Gap 10 (12-20); Aspartate Amino Transferase 18 U/L (5-31); Bilirubin Total 0.2 mg/dL (0.0-1.0); Blood Urea Nitrogen 13 mg/dL (9-16); Carbon Dioxide 25 mmol/L (22-29); Chloride 108 mmol/L (96-108); Creatinine Clr Calc Pharmacy 68.4; Estimated Glomerular Filt Rate > 60; Glucose Fasting 96 mg/dL (60-99); Potassium 3.6 mmol/L (3.3-5.1); Sodium 139 mmol/L (135-145); Total Protein 6.7 g/dL (6.5-8.0)
[2024-11-22] MEDS: Topiramate 25 MG TABLET 50 MG PO ×2 (09:19→22:02)
[2024-11-22] MEDS: HaloperidoL 5 MG TABLET 10 MG PO ×2 (09:19→22:02)
[2024-11-22] MEDS: Pregabalin 150 MG CAPSULE PO ×2 (09:19→22:02)
[2024-11-22] MEDS: valACYclovir HCL 1,000 MG TABLET 1000 MG PO ×2 (09:19→22:03)
[2024-11-22] MEDS: Benztropine Mesylate 1 MG TABLET PO ×2 (09:19→22:01)
[2024-11-22] MEDS: Nicotine 21 MG PATCH.TD24 TRANSDERMA (09:20)
[2024-11-22] MEDS: methADONE HCl 20 MG/2 ML ORAL.CONC 125 MG PO (09:20)
[2024-11-22] MEDS: Docusate Sodium 100 MG CAPSULE PO (09:42)
[2024-11-22 10:39] LABS: Vancomycin Random 18.5 mcg/mL (15-20)
[2024-11-22 10:55] VITALS: BP 117/69; PULSE 88; RESP 20; TEMP 36.7; O2SAT 98
[2024-11-22] MEDS: vancomycin HCL 1,500 MG in 0.9 % Sodium Chloride 500 ML 333.33 MG IV (12:55)
--- NOTE | 2024-11-22 15:21 | HO.PM.IMPN ---
Subjective Subjective Date of Service: 11/22/24 Interval History: Valium and morphine held overnight. Much more alert this morning now asking for Valium once again Review of Systems Denies chest pain Denies shortness of breath Denies nausea vomiting diarrhea Denies fever chills Physical Exam Vital Signs: Vital Signs: Last Vital Signs Temp 97.2 F 11/22/24 15:03 Pulse 82 11/22/24 15:03 Resp 16 11/22/24 15:03 BP 162/58 H 11/22/24 15:03 Pulse Ox 96 11/22/24 15:03 O2 Del Method Room Air 11/22/24 15:03 BMI result Body Mass Index 29.4 Const: Other: Awake alert (when examined in a.m.) Resp: Other: Clear to auscultation bilaterally no rales rhonchi or wheezes Cardio: Other: No S4; positive S1-S2; no S3 murmurs rubs or gallops GI: Other: Soft nontender nondistended normoactive bowel sounds Extrem: Other: No edema bilaterally Objective Data Active Medications Al Hydroxide/Mg Hydroxide (Magnesium Hydrox/Alum Hydrox 30 Ml Oral.Susp) 30 ml PO QID PRN PRN Reason: gi upset Baclofen (Baclofen 10 Mg Tablet) 10 mg PO TID [facility] Last Admin: 11/22/24 09:25 Dose: Not Given Documented By: ITZ Non-Admin Reason: Patient Refused Benzocaine (Throat Lozenge, Medicated Lozenge) 1 lozenge MUCOUS MEM Q2H PRN PRN Reason: Sore Throat Benztropine Mesylate (Benztropine Mesylate 1 Mg Tablet) 1 mg PO BID [facility] Last Admin: 11/22/24 09:19 Dose: 1 mg Documented By: ITZ Bupropion HCl (Bupropion Hcl Xl 150 Mg Tab.Er.24h) 150 mg PO DAILY [facility] Last Admin: 11/22/24 09:26 Dose: Not Given Documented By: ITZ Non-Admin Reason: Patient Refused Calcium Carbonate (Calcium Carbonate 750 Mg Tab.Chew) 750 mg PO Q4H PRN PRN Reason: Heartburn Clonidine HCl (Clonidine Hcl 0.1 Mg Tablet) 0.1 mg PO DAILY PRN; Protocol PRN Reason: Anxiety - 3rd line Last Admin: 11/20/24 17:15 Dose: 0.1 mg Documented By: JAM Diazepam (Diazepam 2 Mg Tablet) 2 mg PO TID PRN PRN Reason: Anxiety - 2nd line Last Admin: 11/20/24 20:22 Dose: 2 mg Documented By: CIERRA Docusate Sodium (Docusate Sodium 100 Mg Capsule) 100 mg PO BID PRN PRN Reason: Constipation- 1st line Last Admin: 11/22/24 09:42 Dose: 100 mg Documented By: ITZ Enoxaparin Sodium (Enoxaparin Sodium 40 Mg/0.4 Ml Syringe) 40 mg SUBCUT Q24H [facility] Last Admin: 11/22/24 12:57 Dose: Not Given Documented By: ITZ Non-Admin Reason: Patient Asleep Guaifenesin (Guaifenesin La 600 Mg Tab.Er.12h) 1,200 mg PO Q12H PRN PRN Reason: Cough Haloperidol (Haloperidol 5 Mg Tablet) 10 mg PO BID [facility] Last Admin: 11/22/24 09:19 Dose: 10 mg Documented By: ITZ Hydroxyzine HCl (Hydroxyzine Hcl 50 Mg Tablet) 50 mg PO Q4H PRN PRN Reason: moderate to severe anxiety Last Admin: 11/21/24 18:22 Dose: 50 mg Documented By: BRENT Piperacillin Sod/Tazobactam (Sod 3.375 gm/ Sodium Chloride) 50 mls @ 100 mls/hr IV Q6H [facility] Last Infusion: 11/22/24 10:08 Dose: Infused Documented By: ITZ Vancomycin HCl 1,500 mg/ (Sodium Chloride) 500 mls @ 333.333 mls/hr IV Q24H [facility] Last Admin: 11/22/24 12:55 Dose: 333.33 mls/hr Documented By: ITZ Loperamide HCl (Loperamide Hcl 2 Mg Capsule) 2 mg PO Q4H PRN PRN Reason: Diarrhea Magnesium Hydroxide (Milk Of Magnesia 30 Ml Oral.Susp) 30 ml PO DAILY PRN PRN Reason: Constipation- 3rd line Melatonin (Melatonin 3 Mg Tablet) 3 mg PO BEDTIME PRN PRN Reason: Insomnia Methadone HCl (Methadone Hcl 20 Mg/2 Ml Oral.Conc) 125 mg PO DAILY [facility] Last Admin: 11/22/24 09:20 Dose: 125 mg Documented By: ITZ Co-signed By: LE Mirtazapine (Mirtazapine 15 Mg Tablet) 15 mg PO BEDTIME [facility] Last Admin: 11/21/24 21:16 Dose: 15 mg Documented By: CIERRA Morphine Sulfate (Morphine Sulfate 2 Mg/Ml Cartridge) 2 mg IVPUSH Q4H PRN; Protocol PRN Reason: Pain, Severe (Pain Scale 7-10) Last Admin: 11/20/24 17:14 Dose: 2 mg Documented By: JAM Nicotine (Nicotine 21 Mg Patch.Td24) 21 mg TRANSDERMA DAILY [facility] Last Admin: 11/22/24 09:20 Dose: 21 mg Documented By: ITZ Nicotine Polacrilex (Nicotine Polacrilex 2 Mg Gum) 2 mg BUCCAL Q2H PRN PRN Reason: Nicotine Cravings Pharmacy Consult (Consult Rx Vancomycin Dosing) 1 each MISCELLANE DAILY PRN PRN Reason: Consult order Pregabalin (Pregabalin 150 Mg Capsule) 150 mg PO BID [facility] Last Admin: 11/22/24 09:19 Dose: 150 mg Documented By: ITZ Quetiapine Fumarate (Quetiapine Fumarate 300 Mg Tablet) 300 mg PO BEDTIME [facility] Last Admin: 11/21/24 21:18 Dose: 300 mg Documented By: CIERRA Quetiapine Fumarate (Quetiapine Fumarate 50 Mg Tablet) 50 mg PO Q6H PRN PRN Reason: Agitation Senna (Sennosides 8.6 Mg Tablet) 17.2 mg PO DAILY PRN PRN Reason: Constipation- 2nd line Topiramate (Topiramate 25 Mg Tablet) 50 mg PO BID [facility] Last Admin: 11/22/24 09:19 Dose: 50 mg Documented By: ITZ Valacyclovir HCl (Valacyclovir Hcl 1,000 Mg Tablet) 1,000 mg PO Q12H [facility] Last Admin: 11/22/24 09:19 Dose: 1,000 mg Documented By: ITZ Labs 11/22/24 06:37 11/22/24 06:37 Labs: Laboratory Results - last 24 hr 11/22/24 11/22/24 06:37 10:11 MCV 84.3 MCH 27.7 MCHC 32.9 RDW 13.1 Plt Count 268 MPV 9.6 Immature Gran % (Auto) 0.5 H Neut % (Auto) 53.1 Lymph % (Auto) 30.7 [place] % (Auto) 8.2 Eos % (Auto) 6.6 H Baso % (Auto) 0.9 Lymph # (Auto) 1.3 [place] # (Auto) 0.4 Eos # (Auto) 0.3 Baso # (Auto) 0.0 Abs Immat Gran (auto) 0.02 Absolute Neuts (auto) 2.3 Absolute Nucleated RBC 0.000 Nucleated RBC % (auto) 0.0 Anion Gap 10 L Estim Creat Clear Calc 68.4 Estimated GFR > 60 Fasting Glucose 96 Calcium 9.0 Total Bilirubin 0.2 AST 18 ALT 7 Alkaline Phosphatase 74 Total Protein 6.7 Albumin 3.0 L Random Vancomycin 18.5 Microbiology Microbiology Results: Microbiology 11/19/24 11:22 Blood Culture - Preliminary Blood - Venous No growth after 48 hours. 11/19/24 10:31 Blood Culture - Preliminary Blood - Venous No growth after 48 hours. Assessment and Plan (1) Cellulitis: Status: Acute (2) Cocaine use disorder: Status: Acute Plan 44yo F from [facility] with history of bipolar, PTSD, OUD, seizures, fibromyalgia, and asthma admitted to ICU for septic shock due to LLE cellulitis 1.LLE nonpurulent cellulitis - CT without deep space infection or abscess -vancomycin/piperacillin-tazobactam(4) -blood cultures negative times 48 hours 2.Oral HSV - valacylovir(3) 3.OUD - methadone with QT precautions as above 4.Seizure disorder - topiramate, pregabalin 5.Bipolar disorder -improved -resume Valium; add oxycodone in favor of morphine Lovenox Full Code In my clinical judgment, the patient requires continued inpatient hospitalization for the following reasons: IV ABX Quality Stroke Does the patient have a stroke diagnosis?: No VTE Prior VTE?: No VTE Risk Level:: Medical - moderate - high VTE Device Contraindication: Treatment Not Indicated VTE Drug Contraindication: N/A - Med Ordered
[2024-11-22] MEDS: Sennosides 8.6 MG TABLET 17.2 MG PO (15:25)
[2024-11-22] MEDS: hydrOXYzine HCL 50 MG TABLET PO (15:25)
[2024-11-22 15:30] VITALS: BP 133/76; PULSE 87; RESP 16; TEMP 36.3; O2SAT 97
[2024-11-22] MEDS: oxyCODONE HCl Immed Release 5 MG TABLET 10 MG PO ×2 (16:44→22:11)
[2024-11-22] MEDS: diazePAM 2 MG TABLET PO ×2 (16:44→22:11)
[2024-11-22 19:30] VITALS: BP 136/85; PULSE 88; RESP 18; TEMP 36.6; O2SAT 96
[2024-11-22] MEDS: Mirtazapine 15 MG TABLET PO (22:02)
[2024-11-22] MEDS: QUEtiapine Fumarate 300 MG TABLET PO (22:02)
[2024-11-22 23:10] VITALS: BP 106/75; PULSE 89; RESP 16; TEMP 36.8; O2SAT 96
[2024-11-23] MEDS: Piperacillin Sodium/Tazobactam 3.375 GM in 0.9 % Sodium Chloride 50 ML IV ×2 (03:33→08:56)
[2024-11-23 03:37] VITALS: BP 109/63; PULSE 72; RESP 16; TEMP 36.5; O2SAT 96
[2024-11-23 07:16] LABS: Creatinine Clr Calc Pharmacy 69.1; Estimated Glomerular Filt Rate > 60
[2024-11-23 07:51] VITALS: BP 122/85; PULSE 78; RESP 20; TEMP 36.3; O2SAT 96
[2024-11-23] MEDS: methADONE HCl 20 MG/2 ML ORAL.CONC 125 MG PO (08:57)
[2024-11-23] MEDS: oxyCODONE HCl Immed Release 5 MG TABLET 10 MG PO ×3 (08:57→18:38)
[2024-11-23] MEDS: Benztropine Mesylate 1 MG TABLET PO ×2 (08:58→21:14)
[2024-11-23] MEDS: HaloperidoL 5 MG TABLET 10 MG PO ×2 (08:58→21:14)
[2024-11-23] MEDS: Topiramate 25 MG TABLET 50 MG PO ×2 (08:58→21:15)
[2024-11-23] MEDS: Pregabalin 150 MG CAPSULE PO ×2 (08:58→21:15)
[2024-11-23] MEDS: Nicotine 21 MG PATCH.TD24 TRANSDERMA (08:59)
[2024-11-23 11:07] VITALS: BP 124/83; PULSE 80; RESP 16; TEMP 36.8; O2SAT 97
[2024-11-23] MEDS: diazePAM 2 MG TABLET PO ×2 (12:36→21:16)
[2024-11-23] MEDS: vancomycin HCL 1,500 MG in 0.9 % Sodium Chloride 500 ML 333 MG IV (12:37)
[2024-11-23] MEDS: Enoxaparin Sodium 40 MG/0.4 ML SYRINGE SUBCUT (12:37)
--- NOTE | 2024-11-23 13:04 | MHC.CM.PN ---
EMR reviewed and per MD rounds, pt is medically cleared for discharge home self-care, CARE team has also cleared pt. This CM met with pt and her present at bedside to discuss her discharge, IMM given 11/23. Pt has decided to appeal her discharge, hospitalist notified.
[2024-11-23 15:24] VITALS: BP 142/99; PULSE 86; RESP 18; TEMP 37; O2SAT 98
--- NOTE | 2024-11-23 15:47 | P.PNIM_ITS ---
Subjective Subjective Date of Service: 11/23/24 Interval History: Marked improvement in left lower extremity Review of Systems Denies chest pain Denies shortness of breath Denies nausea vomiting diarrhea Denies fever chills Physical Exam 2 Vital Signs: Vital Signs: Last Vital Signs Temp 98.6 F 11/23/24 15:24 Pulse 86 11/23/24 15:24 Resp 18 11/23/24 15:24 BP 142/99 H 11/23/24 15:24 Pulse Ox 98 11/23/24 15:24 O2 Del Method Room Air 11/23/24 15:24 BMI result Body Mass Index 29.4 Const: Other: Awake alert (when examined in a.m.) Resp: Other: Clear to auscultation bilaterally no rales rhonchi or wheezes Cardio: Other: No S4; positive S1-S2; no S3 murmurs rubs or gallops GI: Other: Soft nontender nondistended normoactive bowel sounds Extrem: Other: No edema bilaterally Objective Data Active Medications Al Hydroxide/Mg Hydroxide (Magnesium Hydrox/Alum Hydrox 30 Ml Oral.Susp) 30 ml PO QID PRN PRN Reason: gi upset Baclofen (Baclofen 10 Mg Tablet) 10 mg PO TID [facility] Last Admin: 11/23/24 08:59 Dose: Not Given Documented By: ITZ Non-Admin Reason: Patient Refused Benzocaine (Throat Lozenge, Medicated Lozenge) 1 lozenge MUCOUS MEM Q2H PRN PRN Reason: Sore Throat Benztropine Mesylate (Benztropine Mesylate 1 Mg Tablet) 1 mg PO BID [facility] Last Admin: 11/23/24 08:58 Dose: 1 mg Documented By: ITZ Bupropion HCl (Bupropion Hcl Xl 150 Mg Tab.Er.24h) 150 mg PO DAILY [facility] Last Admin: 11/23/24 08:59 Dose: Not Given Documented By: ITZ Non-Admin Reason: Patient Refused Calcium Carbonate (Calcium Carbonate 750 Mg Tab.Chew) 750 mg PO Q4H PRN PRN Reason: Heartburn Clonidine HCl (Clonidine Hcl 0.1 Mg Tablet) 0.1 mg PO DAILY PRN; Protocol PRN Reason: Anxiety - 3rd line Last Admin: 11/20/24 17:15 Dose: 0.1 mg Documented By: JAM Diazepam (Diazepam 2 Mg Tablet) 2 mg PO TID PRN PRN Reason: Anxiety - 2nd line Last Admin: 11/23/24 12:36 Dose: 2 mg Documented By: ALEXANDR Docusate Sodium (Docusate Sodium 100 Mg Capsule) 100 mg PO BID PRN PRN Reason: Constipation- 1st line Last Admin: 11/22/24 09:42 Dose: 100 mg Documented By: ITZ Enoxaparin Sodium (Enoxaparin Sodium 40 Mg/0.4 Ml Syringe) 40 mg SUBCUT Q24H [facility] Last Admin: 11/23/24 12:37 Dose: 40 mg Documented By: ALEXANDR Guaifenesin (Guaifenesin La 600 Mg Tab.Er.12h) 1,200 mg PO Q12H PRN PRN Reason: Cough Haloperidol (Haloperidol 5 Mg Tablet) 10 mg PO BID [facility] Last Admin: 11/23/24 08:58 Dose: 10 mg Documented By: ITZ Hydroxyzine HCl (Hydroxyzine Hcl 50 Mg Tablet) 50 mg PO Q4H PRN PRN Reason: moderate to severe anxiety Last Admin: 11/22/24 15:25 Dose: 50 mg Documented By: ITZ Piperacillin Sod/Tazobactam (Sod 3.375 gm/ Sodium Chloride) 50 mls @ 100 mls/hr IV Q6H [facility] Last Infusion: 11/23/24 09:28 Dose: Infused Documented By: ITZ Vancomycin HCl 1,500 mg/ (Sodium Chloride) 500 mls @ 333.333 mls/hr IV Q24H [facility] Last Infusion: 11/23/24 14:10 Dose: Infused Documented By: ALEXANDR Loperamide HCl (Loperamide Hcl 2 Mg Capsule) 2 mg PO Q4H PRN PRN Reason: Diarrhea Magnesium Hydroxide (Milk Of Magnesia 30 Ml Oral.Susp) 30 ml PO DAILY PRN PRN Reason: Constipation- 3rd line Melatonin (Melatonin 3 Mg Tablet) 3 mg PO BEDTIME PRN PRN Reason: Insomnia Methadone HCl (Methadone Hcl 20 Mg/2 Ml Oral.Conc) 125 mg PO DAILY [facility] Last Admin: 11/23/24 08:57 Dose: 125 mg Documented By: ITZ Co-signed By: MERE Mirtazapine (Mirtazapine 15 Mg Tablet) 15 mg PO BEDTIME [facility] Last Admin: 11/22/24 22:02 Dose: 15 mg Documented By: CIERRA Nicotine (Nicotine 21 Mg Patch.Td24) 21 mg TRANSDERMA DAILY [facility] Last Admin: 11/23/24 08:59 Dose: 21 mg Documented By: ITZ Nicotine Polacrilex (Nicotine Polacrilex 2 Mg Gum) 2 mg BUCCAL Q2H PRN PRN Reason: Nicotine Cravings Oxycodone HCl (Oxycodone Hcl Immed Release 5 Mg Tablet) 10 mg PO Q4H PRN PRN Reason: Pain, Moderate(Pain Scale 4-6) Last Admin: 11/23/24 14:14 Dose: 10 mg Documented By: ALEXANDR Pharmacy Consult (Consult Rx Vancomycin Dosing) 1 each MISCELLANE DAILY PRN PRN Reason: Consult order Pregabalin (Pregabalin 150 Mg Capsule) 150 mg PO BID [facility] Last Admin: 11/23/24 08:58 Dose: 150 mg Documented By: ITZ Quetiapine Fumarate (Quetiapine Fumarate 300 Mg Tablet) 300 mg PO BEDTIME [facility] Last Admin: 11/22/24 22:02 Dose: 300 mg Documented By: CIERRA Quetiapine Fumarate (Quetiapine Fumarate 50 Mg Tablet) 50 mg PO Q6H PRN PRN Reason: Agitation Senna (Sennosides 8.6 Mg Tablet) 17.2 mg PO DAILY PRN PRN Reason: Constipation- 2nd line Last Admin: 11/22/24 15:25 Dose: 17.2 mg Documented By: ITZ Topiramate (Topiramate 25 Mg Tablet) 50 mg PO BID [facility] Last Admin: 11/23/24 08:58 Dose: 50 mg Documented By: ITZ Valacyclovir HCl (Valacyclovir Hcl 1,000 Mg Tablet) 1,000 mg PO Q12H [facility] Last Admin: 11/23/24 08:59 Dose: Not Given Documented By: ITZ Non-Admin Reason: Patient Refused Labs 11/22/24 06:37 11/23/24 06:37 Labs: Laboratory Results - last 24 hr 11/23/24 06:37 Hold Purple Top SEE NOTE Estim Creat Clear Calc 69.1 Estimated GFR > 60 Assessment and Plan (1) Cellulitis: Status: Acute Plan 44yo F from [facility] with history of bipolar, PTSD, OUD, seizures, fibromyalgia, and asthma admitted to ICU for septic shock due to LLE cellulitis 1.LLE nonpurulent cellulitis - CT without deep space infection or abscess -vancomycin/piperacillin-tazobactam(5)... Switch to p.o. -blood cultures negative times 48 hours 2.Oral HSV - valacylovir(4) 3.OUD - methadone with QT precautions as above 4.Seizure disorder - topiramate, pregabalin 5.Bipolar disorder -improved -resume Valium; add oxycodone in favor of morphine Lovenox Full Code In my clinical judgment, the patient requires continued inpatient hospitalization for the following reasons: IV ABX Quality Stroke Does the patient have a stroke diagnosis?: No VTE Prior VTE?: No VTE Risk Level:: Medical - moderate - high VTE Device Contraindication: Treatment Not Indicated VTE Drug Contraindication: N/A - Med Ordered
--- NOTE | 2024-11-23 16:21 | HO.WOUND ---
wound consult: attempted Arrival to bedside a few times today patient was meeting with various providers and or staff. Will attempt assessment at future date and time.
[2024-11-23 18:28] LABS: HCV Log PCR <1.18 NOT DETECTED Log IU/mL (NOT DETECTED); HepC Viral Load <15 NOT DETECTED IU/mL (NOT DETECTED)
[2024-11-23] MEDS: Doxycycline Monohydrate 100 MG CAPSULE PO (18:33)
[2024-11-23 19:23] VITALS: BP 134/82; PULSE 77; RESP 16; TEMP 36.7; O2SAT 98
[2024-11-23] MEDS: Mirtazapine 15 MG TABLET PO (21:14)
[2024-11-23] MEDS: valACYclovir HCL 1,000 MG TABLET 1000 MG PO (21:15)
[2024-11-23] MEDS: QUEtiapine Fumarate 300 MG TABLET PO (21:15)
[2024-11-24] VITALS: BP 132/85; PULSE 77; RESP 18; TEMP 36.9; O2SAT 98
[2024-11-24 03:09] VITALS: BP 143/92; PULSE 82; RESP 18; TEMP 36.9; O2SAT 96
[2024-11-24] MEDS: oxyCODONE HCl Immed Release 5 MG TABLET 10 MG PO ×3 (03:43→14:11)
[2024-11-24] MEDS: Doxycycline Monohydrate 100 MG CAPSULE PO ×2 (06:33→16:07)
[2024-11-24] MEDS: diazePAM 2 MG TABLET PO ×2 (06:36→16:07)
[2024-11-24 06:48] LABS: Creatinine Clr Calc Pharmacy 65.1; Estimated Glomerular Filt Rate 58
[2024-11-24 07:47] VITALS: BP 145/102; PULSE 76; RESP 20; TEMP 36.6; O2SAT 96
[2024-11-24] MEDS: Topiramate 25 MG TABLET 50 MG PO (09:00)
[2024-11-24] MEDS: valACYclovir HCL 1,000 MG TABLET 1000 MG PO (09:00)
[2024-11-24] MEDS: Pregabalin 150 MG CAPSULE PO (09:00)
[2024-11-24] MEDS: HaloperidoL 5 MG TABLET 10 MG PO (09:00)
[2024-11-24] MEDS: Benztropine Mesylate 1 MG TABLET PO (09:00)
[2024-11-24] MEDS: Nicotine 21 MG PATCH.TD24 TRANSDERMA (09:01)
[2024-11-24] MEDS: methADONE HCl 20 MG/2 ML ORAL.CONC 125 MG PO (09:01)
[2024-11-24 10:33] LABS: Vancomycin Random 13.4 mcg/mL (15-20)
--- NOTE | 2024-11-24 10:39 | HO.WOUND ---
Wound Consult: Initial 44yr old? admitted to [facility] on 11/19/24 - See progress notes and H&P for detailed history.? Wound consult placed for Left lower leg.? Patient agreeable to assessment and photo documentation.? Arrival to bedside patient and significant other reported concerns with nurning snesation to lower leg - she reports this is her baseline - advised patient to report symptom to provider but suspect this is nerve pain. The patient is noted to have evidence of a pervious flap in place no concerns noted. there is a small stable black scab noted - the patient reports she has had a scab to this area for sometime as she often picks at the scabs as they are healing. The patient requested I take off the scab. She was advised to leave the scab in place to allow for healing. She did report she often cant help herself but to take off the scabs as they form. We discussed using a hydrocolloid in an effort to allow for healing and limit her access to picking she was agreeable to this topical treatment. Left Lower Leg Etiology: Chronic wound Present on Admission Measurements: 1cm x 0.2cm x 0.1cm Wound Bed: black stable dry scab Drainage / Odor: None Edges: ? attached and linear [place] wound: Scar tissue noted - healed flap noted ? No Induration, Fluctuance or Warmth noted Pain: denies reports burning sensation at times - baseline Goals of Treatment: ? cover to limit picking and allow for complete healing Recommendations: Left Lower Leg - Cleanse with routine cleansing. Apply skin prep allow to dry. Cover with hydrocolloid dressing change every 5 days and PRN. Re-consult wound care Nurse for wound deterioration or wound changes.
[2024-11-24 12:00] VITALS: BP 108/73; PULSE 74; RESP 18; TEMP 36.8; O2SAT 97
[2024-11-24] MEDS: Enoxaparin Sodium 40 MG/0.4 ML SYRINGE SUBCUT (12:24)
[2024-11-24] MEDS: Loperamide HCl 2 MG CAPSULE PO (12:24)
--- NOTE | 2024-11-24 14:24 | HO.PM.IMPN ---
Subjective Subjective Date of Service: 11/24/24 Interval History: Marked improvement in left lower extremity Review of Systems Denies chest pain Denies shortness of breath Denies nausea vomiting diarrhea Denies fever chills Physical Exam Vital Signs: Vital Signs: Last Vital Signs Temp 98.3 F 11/24/24 12:00 Pulse 74 11/24/24 12:00 Resp 18 11/24/24 12:00 BP 108/73 11/24/24 12:00 Pulse Ox 97 11/24/24 12:00 O2 Del Method Room Air 11/24/24 12:00 BMI result Body Mass Index 29.4 Const: Other: Awake alert (when examined in a.m.) Resp: Other: Clear to auscultation bilaterally no rales rhonchi or wheezes Cardio: Other: No S4; positive S1-S2; no S3 murmurs rubs or gallops GI: Other: Soft nontender nondistended normoactive bowel sounds Extrem: Other: No edema bilaterally Objective Data Active Medications Al Hydroxide/Mg Hydroxide (Magnesium Hydrox/Alum Hydrox 30 Ml Oral.Susp) 30 ml PO QID PRN PRN Reason: gi upset Baclofen (Baclofen 10 Mg Tablet) 10 mg PO TID [facility] Last Admin: 11/24/24 08:49 Dose: Not Given Documented By: JASON Non-Admin Reason: Patient Refused Benzocaine (Throat Lozenge, Medicated Lozenge) 1 lozenge MUCOUS MEM Q2H PRN PRN Reason: Sore Throat Benztropine Mesylate (Benztropine Mesylate 1 Mg Tablet) 1 mg PO BID [facility] Last Admin: 11/24/24 09:00 Dose: 1 mg Documented By: JASON Bupropion HCl (Bupropion Hcl Xl 150 Mg Tab.Er.24h) 150 mg PO DAILY [facility] Last Admin: 11/24/24 09:01 Dose: Not Given Documented By: JASON Non-Admin Reason: Patient Refused Calcium Carbonate (Calcium Carbonate 750 Mg Tab.Chew) 750 mg PO Q4H PRN PRN Reason: Heartburn Clonidine HCl (Clonidine Hcl 0.1 Mg Tablet) 0.1 mg PO DAILY PRN; Protocol PRN Reason: Anxiety - 3rd line Last Admin: 11/20/24 17:15 Dose: 0.1 mg Documented By: JAM Diazepam (Diazepam 2 Mg Tablet) 2 mg PO TID PRN PRN Reason: Anxiety - 2nd line Last Admin: 11/24/24 06:36 Dose: 2 mg Documented By: JIA Comments: pt. refusing hydroxyzine. Docusate Sodium (Docusate Sodium 100 Mg Capsule) 100 mg PO BID PRN PRN Reason: Constipation- 1st line Last Admin: 11/22/24 09:42 Dose: 100 mg Documented By: ITZ Doxycycline Monohydrate (Doxycycline Monohydrate 100 Mg Capsule) 100 mg PO Q12H [facility] Last Admin: 11/24/24 06:33 Dose: 100 mg Documented By: JIA Enoxaparin Sodium (Enoxaparin Sodium 40 Mg/0.4 Ml Syringe) 40 mg SUBCUT Q24H [facility] Last Admin: 11/24/24 12:24 Dose: 40 mg Documented By: JASON Guaifenesin (Guaifenesin La 600 Mg Tab.Er.12h) 1,200 mg PO Q12H PRN PRN Reason: Cough Haloperidol (Haloperidol 5 Mg Tablet) 10 mg PO BID [facility] Last Admin: 11/24/24 09:00 Dose: 10 mg Documented By: JASON Hydroxyzine HCl (Hydroxyzine Hcl 50 Mg Tablet) 50 mg PO Q4H PRN PRN Reason: moderate to severe anxiety Last Admin: 11/22/24 15:25 Dose: 50 mg Documented By: ITZ Loperamide HCl (Loperamide Hcl 2 Mg Capsule) 2 mg PO Q4H PRN PRN Reason: Diarrhea Last Admin: 11/24/24 12:24 Dose: 2 mg Documented By: JASON Magnesium Hydroxide (Milk Of Magnesia 30 Ml Oral.Susp) 30 ml PO DAILY PRN PRN Reason: Constipation- 3rd line Melatonin (Melatonin 3 Mg Tablet) 3 mg PO BEDTIME PRN PRN Reason: Insomnia Methadone HCl (Methadone Hcl 20 Mg/2 Ml Oral.Conc) 125 mg PO DAILY [facility] Last Admin: 11/24/24 09:01 Dose: 125 mg Documented By: JASON Co-signed By: BUBBA Mirtazapine (Mirtazapine 15 Mg Tablet) 15 mg PO BEDTIME [facility] Last Admin: 11/23/24 21:14 Dose: 15 mg Documented By: JIA Nicotine (Nicotine 21 Mg Patch.Td24) 21 mg TRANSDERMA DAILY [facility] Last Admin: 11/24/24 09:01 Dose: 21 mg Documented By: JASON Nicotine Polacrilex (Nicotine Polacrilex 2 Mg Gum) 2 mg BUCCAL Q2H PRN PRN Reason: Nicotine Cravings Oxycodone HCl (Oxycodone Hcl Immed Release 5 Mg Tablet) 10 mg PO Q4H PRN PRN Reason: Pain, Moderate(Pain Scale 4-6) Last Admin: 11/24/24 14:11 Dose: 10 mg Documented By: JASON Pregabalin (Pregabalin 150 Mg Capsule) 150 mg PO BID [facility] Last Admin: 11/24/24 09:00 Dose: 150 mg Documented By: JASON Quetiapine Fumarate (Quetiapine Fumarate 300 Mg Tablet) 300 mg PO BEDTIME [facility] Last Admin: 11/23/24 21:15 Dose: 300 mg Documented By: JIA Quetiapine Fumarate (Quetiapine Fumarate 50 Mg Tablet) 50 mg PO Q6H PRN PRN Reason: Agitation Senna (Sennosides 8.6 Mg Tablet) 17.2 mg PO DAILY PRN PRN Reason: Constipation- 2nd line Last Admin: 11/22/24 15:25 Dose: 17.2 mg Documented By: ITZ Topiramate (Topiramate 25 Mg Tablet) 50 mg PO BID [facility] Last Admin: 11/24/24 09:00 Dose: 50 mg Documented By: JASON Valacyclovir HCl (Valacyclovir Hcl 1,000 Mg Tablet) 1,000 mg PO Q12H [facility] Last Admin: 11/24/24 09:00 Dose: 1,000 mg Documented By: JASON Labs 11/22/24 06:37 11/24/24 06:12 Labs: Laboratory Results - last 24 hr 11/21/24 11/24/24 11/24/24 06:44 06:12 09:55 Estim Creat Clear Calc 65.1 Estimated GFR 58 Random Vancomycin 13.4 L Hep C Viral Load <15 NOT DETECTED Hep C Viral Load Log <1.18 NOT DETECTED Microbiology Microbiology Results: Microbiology 11/19/24 11:22 Blood Culture - Final Blood - Venous No growth after 5 days. 11/19/24 10:31 Blood Culture - Final Blood - Venous No growth after 5 days. Assessment and Plan (1) Cellulitis: Status: Acute Plan 44yo F from [facility] with history of bipolar, PTSD, OUD, seizures, fibromyalgia, and asthma admitted to ICU for septic shock due to LLE cellulitis 1.LLE nonpurulent cellulitis - CT without deep space infection or abscess -doxycycline p.o. (1) -blood cultures negative times 48 hours 2.Oral HSV - valacylovir(4) 3.OUD - methadone with QT precautions as above 4.Seizure disorder - topiramate, pregabalin 5.Bipolar disorder -improved -resume Valium; add oxycodone in favor of morphine Lovenox Full Code In my clinical judgment, the patient requires continued inpatient hospitalization for the following reasons: IV ABX Quality Stroke Does the patient have a stroke diagnosis?: No VTE Prior VTE?: No VTE Risk Level:: Medical - moderate - high VTE Device Contraindication: Treatment Not Indicated VTE Drug Contraindication: N/A - Med Ordered
--- NOTE | 2024-11-24 15:18 | PM.DS ---
DS: Providers Provider Date of Service: 11/24/24 Date of admission: 11/19/24 17:32 Date of discharge: 11/24/24 Primary care physician: None Physician Consults: 11/19/24 19:44 Consult to Wound Care Routine Reason for consultation: LLE redness/open wound present on admit 11/19/24 19:51 Addiction Medicine Provider Routine Consulting Provider: Addiction Covering Reason for consultation: Pt reports daily crack smoking Has provider been notified: Yes 11/19/24 23:57 Consult for Sitter Routine Reason for consultation: Section 12 Has provider been notified: Yes 11/22/24 15:23 Inpt CARE Team Crisis Consult Routine Comment: Reason for consultation: Disposition DS: Diagnosis Discharge Diagnosis (1) Cellulitis: Status: Acute DS: Summary Hospital Course Hospital Course: 44-year-old is a 44-year-old female with history of asthma, seizures, fibromyalgia, GERD, Bipolar II disorder, PTSD, OUD on methadone who was sent from [facility] for evaluation of infection to the lower left leg at the site of a prior skin graft /surgery. On arrival to the ER, blood pressure was 115/69 heart rate 89, temp 99.6?. O2 sat 100% on room air. Laboratory data significant for WBC 12.6, C-reactive protein 12.69. ? UA showed 1+ leuks,? urine drug screen positive for methadone, benzos both of which are prescribed. ED course: while in the emergency room the patient was lethargic but maintaining airway /respirations.? She became hypotensive and was given fluid bolus.? She was started on Levophed.? She received a total of 1932 mL LR per sepsis protocol, vancomycin 1500 mg, clindamycin 300 mg, Zosyn 3.375 g, Keppra 1500 mg, acetaminophen 650 mg. Hospital course Patient admitted to ICU within 24 hours was able to be weaned off of Levophed and transferred to the floor. CTA of left lower extremity was obtained which showed no evidence of deep space abscess or infection and she was maintained on vancomycin and piperacillin tazobactam. She was seen by addiction Medicine and her methadone dose was restarted. She continued to improve over the course of her hospitalization and on the day of discharge he is medically acceptable to complete an oral course of doxycycline. She will be discharged on same to follow up with PCP next available Time Attestation Discharge Coordination Time (in mins): 35 Quality: Safe Use of Opioids Does Pt have an Active Cancer Diagnosis on the Problem List?: No Quality: Stroke Does the patient have a stroke diagnosis?: No Physical Exam Vital Signs: Vital Signs: Last Vital Signs Temp 98.3 F 11/24/24 12:00 Pulse 74 11/24/24 12:00 Resp 18 11/24/24 12:00 BP 108/73 11/24/24 12:00 Pulse Ox 97 11/24/24 12:00 O2 Del Method Room Air 11/24/24 12:00 BMI result Body Mass Index 29.4 Const: Other: Awake alert (when examined in a.m.) Resp: Other: Clear to auscultation bilaterally no rales rhonchi or wheezes Cardio: Other: No S4; positive S1-S2; no S3 murmurs rubs or gallops GI: Other: Soft nontender nondistended normoactive bowel sounds Extrem: Other: No edema bilaterally DS: Data Data Completed and Pending Labs on day of discharge: Laboratory Results - last 24 hr 11/21/24 11/24/24 11/24/24 06:44 06:12 09:55 Creatinine 1.03 Estim Creat Clear Calc 65.1 Estimated GFR 58 Random Vancomycin 13.4 L Hep C Viral Load <15 NOT DETECTED Hep C Viral Load Log <1.18 NOT DETECTED Discharge Plan Discharge Anticipated Discharge Date/Time: 11/24/24 15:15 Patient Disposition: Home, Self-Care Discharge Diagnosis: Left lower extremity cellulitis Referrals: Physician,None [Primary Care Provider] - 1 Week Discharge Medications: New valacyclovir 1 gram Tablet 1,000 mg PO Q12H Qty: 10 0RF doxycycline monohydrate 100 mg Capsule 100 mg PO Q12H Qty: 14 0RF Continued bupropion HCl 150 mg Tablet Sustained-Release 12 Hr 150 mg PO DAILY Patient Comments: Patient reports she does not take this med. [employer] notified sennosides [senna] 8.6 mg Tablet 17.2 mg PO DAILY PRN (Reason: Constipation- 2nd line) clonidine HCl 0.1 mg Tablet 0.1 mg PO DAILY PRN (Reason: Anxiety - 3rd line) acetaminophen [Tylenol] 325 mg Tablet 650 mg PO Q4H PRN (Reason: Pain) quetiapine 300 mg Tablet 300 mg PO BEDTIME nicotine (polacrilex) 2 mg Gum 2 mg BUCCAL Q2H PRN (Reason: Nicotine Cravings) loperamide 2 mg Tablet 2 mg PO Q4H PRN (Reason: Diarrhea) Rx Instructions: administer after each loose stool until symptoms controlled; do not exceed 16 mg per 24 hrs hydroxyzine pamoate 50 mg Capsule 50 mg PO Q4H PRN (Reason: moderate to severe anxiety) melatonin 3 mg Tablet 3 mg PO BEDTIME PRN (Reason: Insomnia) magnesium hydroxide 400 mg/5 mL Suspension 30 ml PO DAILY PRN (Reason: Constipation- 3rd line) baclofen 10 mg Tablet 10 mg PO TID haloperidol 10 mg Tablet 10 mg PO BID ibuprofen 400 mg Tablet 400 mg PO Q8H PRN (Reason: Pain) benztropine 1 mg Tablet 1 mg PO BID nicotine 21 mg/24 hr Patch 24 Hour 1 patch TRANSDERMAL DAILY docusate sodium 100 mg Capsule 100 mg PO BID PRN (Reason: Constipation- 1st line) calcium carbonate 500 mg calcium (1,250 mg) Tablet,Chewable 500 mg PO Q4H PRN (Reason: Heartburn) mirtazapine 15 mg Tablet 15 mg PO BEDTIME methadone [Methadone Intensol] 10 mg/mL Concentrate 125 mg PO DAILY alum-mag hydroxide-simeth 200-200-20 mg/5 mL Suspension 30 ml PO QID PRN (Reason: gi upset) Rx Instructions: administer between meals and at bedtime ondansetron 4 mg Tablet,Disintegrating 4 mg PO Q6H PRN (Reason: Nausea And Vomiting) topiramate 50 mg Tablet 50 mg PO BID pregabalin 150 mg Capsule 150 mg PO BID quetiapine 50 mg Tablet 50 mg PO Q6H PRN (Reason: Agitation) benzocaine-menthol 6-10 mg Lozenge 1 tenzin MUCOUS MEMBRANE Q2H PRN (Reason: Sore Throat) guaifenesin 600 mg Tablet Extended Release 12hr 1,200 mg PO Q12H PRN (Reason: Cough) diazepam 2 mg Tablet 2 mg PO TID PRN (Reason: Anxiety - 2nd linw) Discharge Orders: Discharge Order (Routine); Ordered 11/24/24 Ordered By: Vinny Brand Diet: Advance to usual diet Activity on Discharge: As tolerated Stand Alone Forms: Patient Portal Discharge page Print Language: [place] Care Plan Goals: Complete course of doxycycline and valacyclovir as ordered Health Concerns: Continue all other medications as taken previous to hospital and as listed on discharge sheet Plan of Treatment: Arrange follow up with PCP next available and follow up with methadone Clinic Assessment: See discharge summary
--- NOTE | 2024-11-24 15:20 | MHC.CM.PN ---
CM met with pt and her S.O., to ask what their understanding of DCP is, they said they want pt. to stay here until Thursday and then they plan to go back to [facility]. They were calling someone to appeal the DC again.
[2024-11-24 16:00] VITALS: BP 109/70; PULSE 77; RESP 19; TEMP 37.2; O2SAT 97
== END 2024-11-24 17:21 | disposition home or self-care (01) | DRG 871 ==
LOC: HO.ED 17:59 → HO.EDOVER 18:13 → HO.ICU 18:28 → HO.IMC 11-20 00:17
PROVIDERS: Family Medicine; Nurse Practitioner Family; Registered Nurse Emergency; Student in an Organized Health Care Education/Training Program; Admitting Provider Internal Medicine Pulmonary Disease; Emergency Provider Emergency Medicine Emergency Medical Services; Visit Provider Hospitalist
DX: A41.9 Sepsis, unspecified organism (principal); R65.21 Severe sepsis with septic shock; L03.116 Cellulitis of left lower limb; B00.2 Herpesviral gingivostomatitis and pharyngotonsillitis; F11.20 Opioid dependence, uncomplicated; F17.210 Nicotine dependence, cigarettes, uncomplicated; Z71.6 Tobacco abuse counseling; F31.9 Bipolar disorder, unspecified; G40.909 Epilepsy, unspecified, not intractable, without status epilepticus; F14.10 Cocaine abuse, uncomplicated; Z79.899 Other long term (current) drug therapy
CPT/HCPCS: 36415; 70450; 71260; 73590; 73701; 74177; 80048; 80053; 80202; 80307; 81001; 82140; 82565; 82803; 83605; 83735; 84100; 84484; 84702; 85025; 85027; 85652; 86140; 86704; 86706; 86803; 87040; 87086; 87340; 87389; 87522; 93005; 99285; J0131; J0736; J1644; J1650; J1953; J2270; J2543; J3370; J3371; J7120; Q9967; S9485

== ENCOUNTER → 2024-11-19 10:11 | Outpatient (BNV) | payer OTHER, SELFPAY | PROVIDERS: Emergency Provider Emergency Medicine Emergency Medical Services; Visit Provider Radiology Diagnostic Radiology | DX: K56.41 Fecal impaction (principal); R41.82 Altered mental status, unspecified; R60.0 Localized edema; R53.83 Other fatigue; M89.262 Other disorders of bone development and growth, left tibia; M89.2 Other disorders of bone development and growth | CPT/HCPCS: 70450; 71260; 73590; 73701; 74177 ==

== ENCOUNTER → 2024-11-19 13:03 | Outpatient (BNV) | payer OTHER, SELFPAY | PROVIDERS: Admitting Provider Internal Medicine Pulmonary Disease; Emergency Provider Emergency Medicine Emergency Medical Services; Visit Provider Internal Medicine Cardiovascular Disease | DX: R94.31 Abnormal electrocardiogram [ECG] [EKG] (principal); G93.40 Encephalopathy, unspecified | CPT/HCPCS: 93010 ==

== ENCOUNTER 2024-11-19 17:32 | Outpatient (BNV) | payer MEDICARE, SELFPAY | END 2024-11-20 15:36 | PROVIDERS: Admitting Provider Internal Medicine Pulmonary Disease; Emergency Provider Emergency Medicine Emergency Medical Services; Visit Provider Internal Medicine Cardiovascular Disease | DX: R94.31 Abnormal electrocardiogram [ECG] [EKG] (principal); Z13.6 Encounter for screening for cardiovascular disorders | CPT/HCPCS: 93010 ==

== ENCOUNTER → 2024-11-19 17:32 | Outpatient (BNV) | payer OTHER, SELFPAY | PROVIDERS: Admitting Provider Internal Medicine Pulmonary Disease; Emergency Provider Emergency Medicine Emergency Medical Services; Visit Provider Family Medicine | DX: L03.116 Cellulitis of left lower limb (principal); F14.10 Cocaine abuse, uncomplicated | CPT/HCPCS: 99232; 99239; 99499 ==

== ENCOUNTER → 2024-11-19 17:32 | Outpatient (BNV) | payer OTHER, SELFPAY | PROVIDERS: Admitting Provider Internal Medicine Pulmonary Disease; Emergency Provider Emergency Medicine Emergency Medical Services; Visit Provider Nurse Practitioner Family | DX: A41.9 Sepsis, unspecified organism (principal); L03.116 Cellulitis of left lower limb; R41.82 Altered mental status, unspecified | CPT/HCPCS: 99233 ==

== ENCOUNTER → 2024-11-19 17:32 | Outpatient (BNV) | payer MEDICARE, SELFPAY | PROVIDERS: Admitting Provider Internal Medicine Pulmonary Disease; Emergency Provider Emergency Medicine Emergency Medical Services; Visit Provider Nurse Practitioner Psychiatric/Mental Health | DX: F14.10 Cocaine abuse, uncomplicated (principal) | CPT/HCPCS: 99221 ==